=== PATIENT | female | born 1935 | race Caucasian/White ===

== ENCOUNTER 2025-04-06 08:27 | Inpatient (IN) | payer MEDICARE, OTHER, SELFPAY ==
--- OUTSIDE RECORDS SUMMARY | 2020-07-01 05:10 | XMS_ITS | Continuity of Care Document ---
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 [address], [id number], [place]. tel:[phone] [facility], Critical access hospital0 [address], [id number], tel:[phone] Gume Moderna #1 (chief complaint) No Information Visit Nursing. [address], [id number], . tel:[phone] Family History Family Member Type Diagnosis Age At Onset No Information Immunizations Vaccine Date Status Comments Moderna COVID-19 Vaccine, 100 mcg/0.5mL administered Source: New Immuniza tion Record Moderna COVID-19 Vaccine, 100 mcg/0.5mL administered Source: New Immuniza tion Record Payers Payer name Insurance type Covered green party ID Authoriza tion(s) WPS Part A [id number] [facility] CI [id number] WPS Part A [id number] [facility] CI [id number] WPS Part A [id number] [facility] [id number] [facility] CI [id number] Social History Type Description Quantity Date Captured Comments Sex Female Smoking Status No Information Vital Signs Date / Time: Height Weight BMI Pulse Rate Blood Pressure Temperature Respiratory Rate Body Surface Area Head Circumference Head Circ. Percentile Wt./Issa. Percentile BMI percentile Pulse Ox Inhaled Ox 11:28 AM 97.50 F Chief Complaint And Reason For Visit From encounter dated '07/01/2020 11:10'. Covid vaccine #2 (chief complaint) Reason For Referral Reason For Referral No Information History Of Present Illness Encounter Date Complaint History Of Prese nt Illness Covid vaccine #2 Moderna #1 Functional Status Date Functional Assessmen t No Information Instructions Date Instruction Additional Infor mation No Information Assessments Type Assessment Date No Information Patient Care Teams Name Effective Dates (start - stop) Status Members No Information
[2025-04-06] VITALS (28 sets, daily range): BP systolic 115–146; BP diastolic 75–95; PULSE 101–145; RESP 20–37; TEMP 37–38.1; O2SAT 92–96; BMI 24.7
--- NOTE | ~2025-04-06 | XR_ITS ---
EXAMINATION: XR chest 1V portable DATE: 04/11/2025 05:53 INDICATION: Shortness of breath TECHNIQUE: frontal view of the chest was obtained. COMPARISON: Chest radiograph dated 04/09/2025 FINDINGS: Pulmonary vascular congestion with persistent increased interstitial pattern in the bilateral mid and lower lung zones consistent with mild pulmonary edema. There are also small bilateral pleural effusions. No pneumothorax. Cardiomegaly. Dual lead pacemaker seen with leads projecting over the expected locations of the right atrium and right ventricle. IMPRESSION: 1. No significant change in cardiomegaly and findings consistent with congestive heart failure including pulmonary vascular congestion, mild pulmonary edema in the mid to lower lungs. Differential includes less likely pneumonia. 2. Small bilateral pleural effusions. Reviewed, dictated and finalized at location A. RT FIRER IMPRESSION: 1. No significant change in cardiomegaly and findings consistent with congestiv e heart failure including pulmonary vascular congestion, mild pulmonary edema i n the mid to lower lungs. Differential includes less likely pneumonia. 2. Small bilateral pleural effusions.
--- NOTE | ~2025-04-06 | XR_ITS ---
EXAMINATION: XR chest 1V portable COMPARISON: No comparisons available. HISTORY: CHF FINDINGS: Moderate pulmonary venous congestion. Minimal basilar infiltrates with trace effusions. No pneumothorax. Moderate cardiomegaly. Mediastinal and hilar contours are within normal limits. Bony thorax no acute abnormality. Miscellaneous: Left pacemaker. Impression: CHF. Findings appear progressed compared to the previous exam Reviewed, dictated and finalized at location P. A INTERN Impression: CHF. Findings appear progressed compared to the previous exam
--- NOTE | ~2025-04-06 | XR_ITS ---
Examination: XR chest 1V portable Clinical History: SOB Comparison: None Technique: Portable AP Findings: Left pacemaker. Cardiomegaly. Scattered interstitial markings with possible more discrete foci of superimposed airspace disease. Hyperinflation. No acute bony abnormality. IMPRESSION: 1. Interstitial pulmonary edema and/or multifocal airspace disease. Reviewed, dictated and finalized at location R. IELD ENGINEER OFFICER
--- NOTE | 2025-04-06 08:40 | ECG_ITS ---
Test Date: 2025-04-06 08:45:51 Measurements Intervals [place] Rate: 133 P: 0 [place]: 0 QRS: -41 QRSD: 74 T: 62 QT: 266 QTc: 397 Interpretive Statements ATRIAL FLUTTER/TACHYCARDIA WITH RAPID VENTRICULAR RESPONSE LEFT AXIS DEVIATION POSSIBLE RIGHT VENTRICULAR CONDUCTION DELAY DELAYED PRECORDIAL R/S TRANSITION BORDERLINE ST-T WAVE ABNORMALITY- LAT/HIGH LAT LEADS BASELINE ARTIFACT- I, II, III, AVR, AVL, AVF ABNORMAL ECG No previous ECG available for comparison Electronically Signed On 04-06-2025 09:32:42 [employer] by Torey Escobar D.O.
[2025-04-06] MEDS: METOPROLOL TARTRATE INJ 5 MG/5 ML VIAL IV PUSH (09:07)
[2025-04-06] MEDS: LACTATED RINGERS 1,000 ML 999 ML IV CONT (09:12)
[2025-04-06 09:32] LABS: Hematocrit 40.0 % (37.0-47.0); Hemoglobin 12.7 g/dL (12.0-15.0); Immature Granulocyte Percent A 0.3 % (0-0.5); Lymphocytes Absolute Auto 0.57 K/mm3 (0.9-3.2); Mean Corpuscular HGB Conc 31.8 g/dl (32-36); Mean Corpuscular Hemoglobin 27.6 pg (26-34); Mean Corpuscular Volume 87.0 fl (80-100); Nucleated Red Blood Cells Absolute Auto 0.000 K/mm3 (0.0-0.012); Nucleated Red Blood Cells Perc 0.0 % (0.0-0.2); Platelet Count Result 167 k/mm3 (150-375); Red Blood Count 4.60 M/mm3 (4.2-5.4); White Blood Count 9.2 K/mm3 (4.5-10.0)
--- NOTE | 2025-04-06 09:40 | ED.GENADULT ---
HPI - General Adult General Chief complaint: Shortness of Breath/Dyspnea Stated complaint: SOB Time Seen by Provider: 04/06/25 08:34 History of Present Illness HPI narrative: 89-year-old female with history of atrial fibrillation on metoprolol, history of CHF. Patient began having cough congestion yesterday along with onset of diarrhea. Patient states she has been taking her medications. Patient is recommended to use oxygen IA and that. And patient states she utilizes this when walking up stairs and when taking a shower but typically does not need to utilize the oxygen. Patient was found to be hypoxic by EMS today. Patient arrived on 4 L of nasal cannula Related Data Home Medications ?Medication ?Instructions ?Recorded ?Confirmed ?Last Taken ?Type Lactobacillus rhamnosus GG 10 1 cap PO DAILY 04/06/25 04/06/25 Unknown History billion cell capsule (Culturelle) acetaminophen 500 mg tablet 1,000 mg PO Q6H PRN pain 04/06/25 04/06/25 Unknown History (Tylenol Extra Strength) albuterol 90 mcg/actuation aerosol mcg inhalation .q4hr 04/06/25 Unknown History inhaler apixaban 2.5 mg tablet (Eliquis) 2.5 mg PO BID 04/06/25 04/06/25 04/05/25 History benzonatate 100 mg capsule 100 mg PO PRN 04/06/25 04/06/25 Unknown History bimatoprost 0.01 % eye drops 1 drp EACH EYE QHS 04/06/25 04/06/25 Unknown History (Adyigan) calcium 500 mg (as 1 tablet PO DAILY 04/06/25 04/06/25 Unknown History carbonate)-vitamin D3 10 mcg (400 unit) tablet (Calcium 500 + D) carboxymethylcellulose sodium 0.5 1 drp EACH EYE .q6h prn 04/06/25 04/06/25 Unknown History % eye drops (Refresh Tears) codeine 10 mg-guaifenesin 100 mg/5 10 ml PO Q4-6H PRN cough 04/06/25 04/06/25 Unknown History mL oral liquid cyclosporine 0.05 % eye drops in a 1 drp EACH EYE QHS 04/06/25 04/06/25 Unknown History dropperette denosumab 60 mg/mL subcutaneous 60 mg subcut [id number] 04/06/25 04/06/25 Unknown History syringe diclofenac sodium 1 % topical gel 4 g topical PRN 04/06/25 04/06/25 Unknown History (Arthritis Pain (diclofenac)) diphenhydramine HCl 25 mg capsule 25 mg PO Q6H PRN allergy symptoms 04/06/25 04/06/25 Unknown History (Allergy (diphenhydramine)) empagliflozin 10 mg tablet 10 mg PO DAILY 04/06/25 04/06/25 Unknown History (Jardiance) ferrous sulfate 325 mg (65 mg 325 mg PO .COMPLEX 04/06/25 04/06/25 Unknown History iron) tablet (FeroSul) fluticasone 250 mcg-salmeterol 50 1 inh inhalation Q12H 04/06/25 04/06/25 Unknown History mcg/dose blistr powdr for inhalation (Advair Diskus) ipratropium 0.5 mg-albuterol 3 mg 3 ml inhalation Q6H 04/06/25 04/06/25 Unknown History (2.5 mg base)/3 mL nebulization soln metoprolol tartrate 25 mg tablet 100 mg PO HS 04/06/25 04/06/25 Unknown History metoprolol tartrate 50 mg tablet 50 mg PO DAILY 04/06/25 04/06/25 Unknown History midodrine 10 mg tablet 10 mg PO DAILY 04/06/25 04/06/25 Unknown History pantoprazole 40 mg tablet,delayed 40 mg PO QAM 04/06/25 04/06/25 Unknown History release potassium chloride 10 mEq 20 meq PO DAILY 04/06/25 04/06/25 Unknown History tablet,extended release riociguat 1 mg tablet (Adempas) 1 mg PO TID 04/06/25 04/06/25 Unknown History selexipag 800 mcg tablet (Uptravi) 800 mcg PO BID 04/06/25 04/06/25 Unknown History sertraline 50 mg tablet 50 mg PO DAILY 04/06/25 04/06/25 Unknown History simvastatin 10 mg tablet 10 mg PO QPM 04/06/25 04/06/25 Unknown History tiotropium bromide 18 mcg capsule 1 cap inhalation QHS 04/06/25 04/06/25 Unknown History with inhalation device (Spiriva with HandiHaler) torsemide 20 mg tablet 20 mg PO DAILY 04/06/25 04/06/25 Unknown History vitamin Y42-pnhrcrywf factor 110 cap PO DAILY 04/06/25 Unknown History mg-0.5 mg capsule Allergies Allergy/AdvReac Type Severity Reaction Status Date / Time nitrofurantoin Allergy Mild Unknown Verified 04/06/25 12:13 Penicillins Allergy Mild Unknown Verified 04/06/25 12:13 Sulfa (Sulfonamide Allergy Mild Unknown Verified 04/06/25 12:13 Antibiotics) Review of Systems Review of Systems: All systems reviewed & are unremarkable except as noted in HPI and below PMFSH Past Medical History Medical History (Updated 04/06/25 @ 14:09 by Yasmin Castro APRN) HTN (hypertension) hx of, no longer on medications. on Midodrine as of Mar 2025 Anxiety Endometriosis Glaucoma Rheumatoid arthritis History of intestinal obstruction Hemorrhoids GERD (gastroesophageal reflux disease) History of diverticulitis History of pacemaker HLD (hyperlipidemia) DVT (deep venous thrombosis) (~2010) Chronic hypoxic respiratory failure, on home oxygen therapy PRN and HS COPD (chronic obstructive pulmonary disease) Congestive heart failure Atrial fibrillation Surgical History Surgical History History of tubal ligation History of hysterectomy History of section History of tonsillectomy History of cataract extraction History of knee replacement History of bladder surgery bladder sling, 1975 History of appendectomy History of lung surgery (~2010) History of automatic internal cardiac defibrillator (AICD) Family History Family History Mother Cancer Father Cancer Epilepsy Grandparent Cancer Social History Social History Smoking status: Never smoker Second hand tobacco smoke exposure: No Alcohol intake: never Substance use: never Lack of Transportation: No Lack of Food: Never True Current Housing: I Have Housing Concerned About Future Housing: No Difficulty Paying Gas/Electric Bills: No Difficulty Paying for Meds: No Currently Unemployed: No Education: High School Diploma/GED Difficulty w/ Childcare or Family Care: No Spiritual care concerns: No Exam Narrative: APPEARANCE: Well-appearing HEAD: normocephalic, atraumatic. EYES: PERRLA/EOMI, conjunctivae clear. NOSE: Normal no drainage EARS:TMS clear with good light reflex. THROAT: Pharynx clear, no exudate. NECK: Supple. No adenopathy, no masses. RESPIRATORY: Airway patent, respirations nonlabored. Clear to auscultation bilaterally, no rales, rhonchi, wheezing. CARDIOVASCULAR: Tachycardia ABDOMINAL: Soft, nontender, nondistended, normal bowel sounds MUSCULOSKELETAL: Moves all extremities. Strength/ROM intact, No edema, No calf tenderness. NEURO: Alert. Cranial nerves II through XII intact. Good gait. Good coordination SKIN: Warm, dry. Normal Color Course Vital Signs Vital signs: Vital Signs Temperature 98.6 F 04/06/25 09:02 Pulse Rate 141 H 04/06/25 09:02 Respiratory Rate 27 H 04/06/25 09:02 Blood Pressure 133/86 04/06/25 09:02 Pulse Oximetry 94 04/06/25 09:02 Oxygen Delivery Nasal Cannula 04/06/25 09:02 Oxygen Flow Rate 4 04/06/25 09:02 Temperature 98.7 F 04/06/25 11:19 Pulse Rate 102 H 04/06/25 14:00 Respiratory Rate 32 H 04/06/25 12:00 Blood Pressure 118/88 04/06/25 11:20 Pulse Oximetry 92 04/06/25 12:56 Oxygen Delivery BiPAP 04/06/25 12:56 Oxygen Flow Rate 4 04/06/25 12:56 MDM MDM Narrative Medical decision making narrative: 82-year-old female presents emergency department for evaluation for rapid heart rate. Patient does have history of AFib. Patient is in AFib with RVR. Patient also has evidence of a CHF exacerbation. Patient is currently afebrile with no leukocytosis hemoglobin of 12.7. Patient does have mild hypoxia on her ABG and patient was placed on BiPAP. Patient does have elevated proBNP of 8130. Patient was recently treated with a dose of 5 mg IV metoprolol and this had a minor effect on her heart rate. Patient was then treated with 10 mg of IV Cardizem along with starting an IV Cardizem infusion. This did help more significantly to control her heart rate. Patient is saturating well on her BiPAP with settings of 12/6. On re-evaluation patient states she does feel improved. Patient's blood pressure did improve as her heart rate improved. With concern for congestive heart failure patient is also being treated with a dose of IV Lasix. Case was discussed with the hospitalist patient was accepted to the IMU. Patient and family are updated the results of the workup and plan for admission. All questions concerns were addressed. Patient was well-appearing at time of admission. Differential Diagnosis Differential Diagnosis: Pneumonia, AFib with RVR, CHF Lab Data 04/06/25 09:23 04/06/25 09:23 Labs: Lab Results 04/06/25 04/06/25 Range/Units 09:23 09:52 WBC 9.2 (4.5-10.0) K/mm3 RBC 4.60 (4.2-5.4) M/mm3 Hgb 12.7 (12.0-15.0) g/dL Hct 40.0 (37.0-47.0) % MCV 87.0 (80-100) fl MCH 27.6 (26-34) pg MCHC 31.8 L (32-36) g/dl RDW 16.4 H (11.5-14.5) % Plt Count 167 (150-375) k/mm3 MPV 10.6 H (7.4-10.4) fl Immature Gran % (Auto) 0.3 (0-0.5) % Neut % (Auto) 87.4 H (45.5-73.1) % Lymph % (Auto) 6.2 L (18.3-44.2) % [place] % (Auto) 4.9 (2.6-8.5) % Eos % (Auto) 0.3 (0-4.4) % Baso % (Auto) 0.9 (0.2-1.2) % Lymph # (Auto) 0.57 L (0.9-3.2) K/mm3 [place] # (Auto) 0.5 (0.1-0.6) K/mm3 Eos # (Auto) 0.0 (0-0.3) K/mm3 Baso # (Auto) 0.1 (0.0-0.1) K/mm3 Abs Immat Gran (auto) 0.03 (0.00-0.031) K/mm3 Absolute Neuts (auto) 8.0 H (1.3-6.7) K/mm3 Absolute Nucleated RBC 0.000 (0.0-0.012) K/mm3 Nucleated RBC % 0.0 (0.0-0.2) % Methemoglobin 0.2 (0-1.5) %THb Sodium 138 (137-145) mmol/L Potassium 4.1 (3.4-5.0) mmol/L Chloride 109 H (98-107) mmol/L Carbon Dioxide 20 L (22-30) mmol/L Anion Gap 9 (4-12) mmol/L BUN 17 (7-17) mg/dL Creatinine 1.09 H (0.7-1.0) mg/dL Estim Creat Clear Calc 23 ml/min Estimated GFR 47 L (59 - ) Glucose 115 H (65-110) mg/dL Calcium 10.1 (8.4-10.2) mg/dL Total Bilirubin 0.8 (0.2-1.3) mg/dL AST 27 (14-36) U/L ALT 15 (6-35) U/L Alkaline Phosphatase 56 (38-126) U/L NT-Pro-B Natriuret Pep 8130 H (19.9-100) pg/mL Total Protein 7.1 (6.3-8.2) g/dL Albumin 4.1 (3.5-5.1) g/dL ABG Data ABG results: 04/06/25 09:52 Puncture Site Right radial ABG pH 7.399 ABG pCO2 30.3 L ABG pO2 61.3 L ABG PO2/FiO2 Ratio 1.70 ABG HCO3 18.3 L ABG O2 Saturation 91.9 L ABG O2 Content 16.8 ABG Base Excess -5.3 A-a Gradient 160.2 Oxyhemoglobin 89.8 L Carboxyhemoglobin 0.9 Reduced Hemoglobin 9.1 H Total Hemoglobin 13.3 O2 Delivery Device Nasal cannula O2 Liters/Min 4.0 FiO2 36 Imaging Data Radiologist's impression: ITS Impressions Chest X-Ray 04/06/25 10:27 IMPRESSION: 1. Interstitial pulmonary edema and/or multifocal airspace disease. Critical Care Time Critical Care Time Indication: AFib with RVR, CHF exacerbation, hypoxia Time Type: Intermittent Initial evaluation, discuss w/ involved parties, attempting to gather old records: 10 minutes Documenting medical record: 10 minutes Review of results (EKG's, labs, imaging): 5 minutes Serial repeat bedside evaluation: 15 minutes Discussing case with multiple memebers of the care team and consultants: 5 minutes Total Critical Care Time: 45 Discharge Plan Discharge Clinical Impression: Atrial fibrillation with rapid ventricular response Congestive heart failure Qualifiers: Heart failure type: unspecified Heart failure chronicity: acute on chronic Qualified Code(s): I50.9 - Heart failure, unspecified Patient Disposition: Still a Patient Condition: Serious
[2025-04-06] MEDS: dilTIAZem 100 MG/100 ML 100 MG/100 ML BAG IV CONT (09:42)
--- OUTSIDE RECORDS SUMMARY | 2025-04-06 09:49 | XMS_ITS | Clinical Summary ---
Author Organization [facility] Address [id number] [place] [address] Care Team Providers Care Product Marketing Executive Name Role Phone Héctor Roman MD Primary Care Provider Allergies Active Allergy Reactions Criticality Noted Date Comments Ciprofloxacin Panic attack,Prolonged QT interval 01/09/2023 Doxycycline Nausea And Vomiting Medium 11/16/2013 Flecainide Rash High 01/06/2022 Nitrofurantoin Macrocrystal Nausea And Vomiting 08/01/2021 Nitrofurantoin Macrocrystalline Nausea And Vomiting High Terrible nausea and vomiting Cefdinir Rash High 03/21/2018 Penicillin Rash High 09/26/2023 Penicillins Anaphylaxis,See Comments High 05/10/2010 Unknown Sulfamethoxazole Hives High Sulfamethoxazole-Trimethop rim Hives High 09/26/2023 Tramadol Nausea,Nausea And Vomiting 08/01/2021 Vancomycin Hives High 09/26/2023 Was changed to zyvox in ER 09/26/23 Medications lactobacillus rhamnosus, GG, (CULTURELLE) 10 billion cell capsuleIndicatio ns:probiotic supplement Take 1 capsule by mouth every morning. 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 Every six months 06/04/19 20 Active albuterol HFA (PROAIR HFA) 90 mcg/actuation inhalerIndicatio ns:Respiratory history (e.g. COPD, asthma) Inhale 2 puffs into the lungs every 4 (four) hours as needed for Wheezing. 1 Inhaler 11 02/13/20 20 Active acetaminophen (TYLENOL EXTRA STRENGTH) 500 mg tablet Take 2 tablets (1,000 mg total) by mouth every 6 (six) hours as needed for Mild Pain. 30 tablet 04/16/20 20 Active calcium carbonate-vitami n D3 600 mg-10 mcg (400 unit) Tab per tabletIndication s:hypocalcemia Take 1 tablet by mouth in the morning. Active albuterol-ipratr opium (DUO-NEB) 0.5 mg-3 mg(2.5 mg base)/3 mL nebulizer solutionIndicati ons:Respiratory history (e.g. COPD, asthma) Take 3 mLs by nebulization every 6 (six) hours as needed for Wheezing. 300 mL 1 04/12/20 21 Active pantoprazole (PROTONIX) 40 mg tabletIndication s:Dyspepsia Take 1 tablet (40 mg total) by mouth every morning before breakfast. 90 tablet 3 11/08/19 23 Active oxymetazoline (AFRIN) 0.05 % nasal sprayIndications :epistaxis 2 sprays by Each Nare route as needed for Congestion (for nose bleeds squirt twice into both nostrils hold pressure for 10 mins repeat again if needed.). 15 mL 11/23/19 23 Active selexipag (UPTRAVI) 800 mcg TabIndications:P ulmonary Arterial Hypertension Take 1 tablet (800 mcg total) by mouth 2 (two) times a day. 60 tablet 11 01/13/20 23 Active riociguat (ADEMPAS) 1 mg TabIndications:P ulmonary Arterial Hypertension Take 1 tablet (1 mg total) by mouth in the morning and 1 tablet (1 mg total) in the evening and 1 tablet (1 mg total) before bedtime. Active REFRESH TEARS 0.5 % DropIndications: Dry Eye Administer 1 drop into both eyes every 6 (six) hours as needed (dry eyes). 02/15/20 23 Active RESTASIS 0.05 % ophthalmic emulsionIndicati ons:Keratoconjun ctivitis Sicca Administer 1 drop into both eyes bedtime. 02/16/20 23 Active ferrous sulfate 325 (65 FE) mg tabletIndication s:iron deficiency anemia Take 1 tablet (325 mg total) by mouth every other day. Can take Monday, Monday, and Monday; take with a vitamin C supplement Reason: anemia from inadequate iron 30 tablet 5 05/29/19 24 Active cyanocobalamin (VITAMIN B-12) 1000 mcg tabletIndication s:Prevention of Vitamin B12 Deficiency Take 1 tablet (1,000 mcg total) by mouth 1 (one) time a day. Reason: prevention of vitamin B12 deficiency 90 tablet 3 05/29/19 24 Active fluticasone propion-salmeter oL (ADVAIR) 250-50 mcg/dose diskus inhalerIndicatio ns:Bronchospasm Prevention with COPD Inhale 1 puff into the lungs 2 (two) times a day. Reason: bronchospasm prevention with COPD 60 each 5 06/02/19 24 Active diphenhydrAMINE (BENADRYL) 25 mg capsuleIndicatio ns:Allergic Rhinitis Take 1 capsule (25 mg total) by mouth every 6 (six) hours as needed for Allergies. Active simvastatin (ZOCOR) 10 mg tabletIndication s:hyperlipidemia Take 1 tablet (10 mg total) by mouth at bedtime. Reason: excessive fat in the blood 90 tablet 3 04/03/20 24 Active guaiFENesin-code ine (GUIATUSS AC) 10-100 mg/5 mL syrupIndications :cough Take 5-10 mLs by mouth every 4 to 6 (four to six) hours as needed for Cough. 237 mL 3 05/22/19 25 Active NASAL CANNULAIndicatio ns:Durable Medical Equipment 1 each by [facility].(Non-Drug; Combo Route) route. COPD [J44.9] Duration: 99 yrs (lifetime) 05/22/19 25 Active benzonatate (TESSALON) 100 mg capsuleIndicatio ns:cough Take 1 capsule (100 mg total) by mouth 3 (three) times a day as needed for Cough. Reason: cough 30 capsule 05/29/19 25 Active SPIRIVA WITH HANDIHALER 18 mcg inhalation capsuleIndicatio ns:Bronchospasm Prevention with COPD Place 1 capsule (18 mcg total) into inhaler and inhale at bedtime. Reason: bronchospasm prevention with COPD 90 capsule 3 06/07/19 25 Active empagliflozin (JARDIANCE) 10 mg tablet Take 1 tablet (10 mg total) by mouth 1 (one) time a day. 90 tablet 3 07/17/19 25 Active diclofenac sodium (VOLTAREN) 1 % gelIndications:O steoarthritis Apply 4 g topically 2 (two) times a day as needed for Mild Pain. Apply to Right shoulder Active bimatoprost, PF, 0.01 % DropIndications: open angle glaucoma Administer 1 drop into affected eye(s) bedtime. Active sertraline (ZOLOFT) 50 mg tabletIndication s:panic disorder Take 1 tablet (50 mg total) by mouth in the morning. 90 tablet 3 01/30/20 25 Active apixaban (ELIQUIS) 2.5 mg Tab tabletIndication s:atrial fibrillation Take 1 tablet (2.5 mg total) by mouth in the morning and 1 tablet (2.5 mg total) before bedtime. 180 tablet 3 01/30/20 25 Active torsemide 20 mg tabletIndication s:Peripheral Edema due to Chronic Heart Failure Take 1 tablet (20 mg total) by mouth in the morning. . Reason: accumulation of fluid resulting from chronic heart failure. . 90 tablet 3 02/18/20 25 Active metoprolol tartrate (LOPRESSOR) 50 mg tabletIndication s:Ventricular Rate Control in Atrial Fibrillation Take 1 tablet (50 mg total) by mouth 1 (one) time a day AND 2 tablets (100 mg total) bedtime. . Reason: ventricular rate control in atrial fibrillation. . 180 tablet 3 02/25/20 25 Active midodrine (PROAMATINE) 10 mg tabletIndication s:Symptomatic Orthostatic Hypotension Take 1 tablet (10 mg total) by mouth in the morning. OK to take up to three times a day as needed for symptomatic orthostatic hypotension (SBP <120). 90 tablet 3 03/17/20 25 Active potassium chloride (KLOR-CON) 10 mEq CR tabletIndication s:hypokalemia prevention Take 2 tablets (20 mEq total) by mouth every evening. 180 tablet 04/02/20 25 Active potassium chloride (KLOR-CON) 10 mEq CR tabletIndication s:hypokalemia prevention Take 2 tablets (20 mEq total) by mouth every evening. Reason: prevention of low potassium in the blood 180 tablet 12/29/19 25 025 Discontin ued(Reord er) midodrine (PROAMATINE) 10 mg tabletIndication s:Symptomatic Orthostatic Hypotension Take 1 tablet (10 mg total) by mouth in the morning. OK to take up to three times a day as needed for symptomatic orthostatic hypotension (SBP <120). 025 Discontin ued(Reord er) Active Problems Patient Care Coordination No te Formatting of this note migh t be different from the original. 12/01/23 Pt has a LBBP lead (MDT 5919) Jairo Isidro RN 3:44 PM, 12/01/2023 Problem Noted Date Diagnosed Date Electrolyte abnormality 02/07/2024 Acute blood loss anemia 02/02/2024 Assessment & Plan (02/06/2024 2:38 PM CDT): Noted to have acute blood loss anemia after right groin venous sheath were removed. Patient had hemoglobin drop from 13.[address] AMP noted large right anterior subcutaneous and intramuscular hematoma with no active extravasation. Patient did have mild pain. Patient received 2 units of packed red blood cells. Patient also does have ABRAHAM at baseline. Patient's hemoglobin stable. Will continue to monitor for signs or symptoms of bleeding and daily CBC. Continue home ferrous sulfate See plan for thigh hematoma Assessment & Plan (02/05/2024 2:52 PM CDT): Noted to have acute blood loss anemia after right groin venous sheath were removed. Patient had hemoglobin drop from 13.[address] AMP noted large right anterior subcutaneous and intramuscular hematoma with no active extravasation. Patient did have mild pain. Patient received 2 units of packed red blood cells. Patient also does have ABRAHAM at baseline. Patient's hemoglobin stable. Will continue to monitor for signs or symptoms of bleeding and daily CBC. Continue home ferrous sulfate See plan for thigh hematoma Assessment & Plan (02/04/2024 1:24 PM CDT): Noted to have acute blood loss anemia after right groin venous sheath were removed. Patient had hemoglobin drop from 13.[address] AMP noted large right anterior subcutaneous and intramuscular hematoma with no active extravasation. Patient did have mild pain. Patient received 2 units of packed red blood cells. Patient also does have ABRAHAM at baseline. Patient's hemoglobin stable. Will continue to monitor for signs or symptoms of bleeding and daily CBC. Continue home ferrous sulfate See plan for thigh hematoma Assessment & Plan (02/03/2024 12:06 PM CDT): Noted to have acute blood loss anemia after right groin venous sheath were removed. Patient had hemoglobin drop from 13.[address] AMP noted large right anterior subcutaneous and intramuscular hematoma with no active extravasation. Patient did have mild pain. Patient received 2 units of packed red blood cells. Patient also does have ABRAHAM at baseline. Patient's hemoglobin stable. Will continue to monitor for signs or symptoms of bleeding and daily CBC. Continue home ferrous sulfate See plan for thigh hematoma Assessment & Plan (02/02/2024 10:58 AM CDT): Noted to have acute blood loss anemia after right groin venous sheath were removed. Patient had hemoglobin drop from 13.[address] AMP noted large right anterior subcutaneous and intramuscular hematoma with no active extravasation. Patient did have mild pain. Patient received 2 units of packed red blood cells. Patient also does have ABRAHAM at baseline Plan Patient's hemoglobin stabilized at 9.2. Will continue to monitor for signs or symptoms of bleeding. Will check CBC tomorrow. Continue home ferrous sulfate Stage 3b chronic kidney disease 02/02/2024 Assessment & Plan (02/06/2024 2:38 PM CDT): Chronic. Cr baseline appears to be near 1.2 - 1.5. CÉSAR to 1.81 now back to baseline. Cr baseline appears to be trending up, noting possible progression of CKD. Patient euvolemic via POCUS exam. Continue to monitor on daily labs Assessment & Plan (02/05/2024 2:52 PM CDT): Chronic. Cr baseline appears to be near 1.2 - 1.5. CÉSAR to 1.81 now back to baseline. Cr baseline appears to be trending up, noting possible progression of CKD. Patient euvolemic via POCUS exam. Continue to monitor on daily labs Assessment & Plan (02/04/2024 1:24 PM CDT): Chronic. Cr baseline appears to be near 1.2 - 1.5. CÉSAR to 1.81 now back to baseline. Cr baseline appears to be trending up, noting possible progression of CKD. Patient euvolemic via POCUS exam. Continue to monitor on daily labs Assessment & Plan (02/03/2024 12:06 PM CDT): Chronic. Cr baseline appears to be near 1.2 - 1.5. CÉSAR to 1.81 now back to baseline. Cr baseline appears to be trending up, noting possible progression of CKD. Patient euvolemic via POCUS exam. Continue to monitor on daily labs Assessment & Plan (02/02/2024 10:58 AM CDT): Chronic. Cr baseline appears to be near 1.2 - 1.5. CÉSAR to 1.81 improved toady. Cr baseline appears to be trending up, noting possible progression of CKD. Patient euvolemic today via POCUS exam. Plan Continue to monitor on daily labs If CÉSAR persists, will consider resuming Torsemide 20 mg BID. Hematoma of right thigh 02/02/2024 Assessment & Plan (02/06/2024 2:38 PM CDT): Patient with right thigh hematoma after sheath removal post ablation. There was evidence of fistula creation of the right proximal superficial femoral artery, distal common femoral vein, and deep femoral artery. No evidence of pseudoaneurysm. Vascular surgery consulted and evaluated patient. Patient does not need surgery at this time. Repeat pseudoaneurysm study 02/04 without e/o pseudoaneurysm Continuing eliquis for Afib With respect to hematoma, patient's pain is under good control Pain regimen: Tylenol as needed, oxycodone as needed Assessment & Plan (02/05/2024 2:52 PM CDT): Patient with right thigh hematoma after sheath removal post ablation. There was evidence of fistula creation of the right proximal superficial femoral artery, distal common femoral vein, and deep femoral artery. No evidence of pseudoaneurysm. Vascular surgery consulted and evaluated patient. Patient does not need surgery at this time. Repeat pseudoaneurysm study 02/04 Continuing eliquis for Afib With respect to hematoma, patient's pain is under good control Pain regimen: Tylenol as needed, oxycodone as needed Assessment & Plan (02/04/2024 1:24 PM CDT): Patient with right thigh hematoma after sheath removal post ablation. There was evidence of fistula creation of the right proximal superficial femoral artery, distal common femoral vein, and deep femoral artery. No evidence of pseudoaneurysm. Vascular surgery consulted and evaluated patient. Patient does not need surgery at this time. Vascular signed off and plans for outpatient follow-up Continuing eliquis for Afib With respect to hematoma, patient's pain is under good control Pain regimen: Tylenol as needed, oxycodone as needed Assessment & Plan (02/03/2024 12:06 PM CDT): Patient with right thigh hematoma after sheath removal post ablation. There was evidence of fistula creation of the right proximal superficial femoral artery, distal common femoral vein, and deep femoral artery. No evidence of pseudoaneurysm. Vascular surgery consulted and evaluated patient. Patient does not need surgery at this time. Vascular signed off and plans for outpatient follow-up Continuing eliquis for Afib With respect to hematoma, patient's pain is under good control Pain regimen: Tylenol as needed, oxycodone as needed Assessment & Plan (02/02/2024 10:58 AM CDT): Patient with right thigh hematoma secondary to acute blood loss anemia. There was evidence of fistula creation of the right proximal superficial femoral artery, distal vomiting femoral vein, and deep femoral artery. Plan Vascular surgery consulted and evaluated patient. Patient does not need surgery at this time. Patient restarted on Eliquis yesterday despite notes recommending to hold anticoagulation at this time. Will clarify with cardiology and vascular surgery if they want this continued. With respect to hematoma, patient's pain is under good control. Pain regimen: Tylenol as needed, oxycodone as needed Orthostatic hypotension 02/02/2024 Assessment & Plan (06/01/2024 8:39 AM GARMENT EXAMINER): Chronic, continue midodrine 10mg daily. Assessment & Plan (06/01/2024 4:31 AM GARMENT EXAMINER): Chronic, continue midodrine 10mg daily. Assessment & Plan (02/06/2024 2:38 PM CDT): Patient on Midodrine 10 mg qAM and up to TID prn for symptomatic orthostatic hypotension. Continue Midodrine 10 mg qAM and 10 mg q8h PRN for SBP < 100. Assessment & Plan (02/05/2024 2:52 PM CDT): Patient on Midodrine 10 mg qAM and up to TID prn for symptomatic orthostatic hypotension. Continue Midodrine 10 mg qAM and 10 mg q8h PRN for SBP < 100. Assessment & Plan (02/04/2024 1:24 PM CDT): Patient on Midodrine 10 mg qAM and up to TID prn for symptomatic orthostatic hypotension. Continue Midodrine 10 mg qAM and 10 mg q8h PRN for SBP < 100. Assessment & Plan (02/03/2024 12:06 PM CDT): Patient on Midodrine 10 mg qAM and up to TID prn for symptomatic orthostatic hypotension. Continue Midodrine 10 mg qAM and 10 mg q8h PRN for SBP < 100. Assessment & Plan (02/02/2024 10:58 AM CDT): Patient on Midodrine 10 mg qAM and up to TID prn for symptomatic orthostatic hypotension. Plan Continue Midodrine 10 mg qAM and 10 mg q8h PRN for SBP < 100. Chronic heart failure with preserved ejection fr action 12/18/2023 Assessment & Plan (08/28/2024 11:45 AM CDT): Ejection fraction 55-60% in 2023. Euvolemic on exam. Baseline Home dry weight 127, in office 130-131. Patient is at this baseline. No signs of heart failure exacerbation. Will repeat kidney function and magnesium level. Had resumed Jardiance and torsemide in June. Has appropriate follow-up with Dr. Marshall and Dr. Reardon with cardiology Orders: Comprehensive metabolic panel; Future Magnesium; Future Assessment & Plan (06/01/2024 8:39 AM GARMENT EXAMINER): Stable and Chronic. Ejection fraction 55-60% in 2023. BNP 139 pg/mL 05/31/2024. Weight on admission 130 lb 9.6 oz (59.2 kg); most recent 130 lb 9.6 oz (59.2 kg). Net (measured) intake/output = 0 mL since admission and 0 mL since yesterday. Monitor intake, output, daily weight & continuous telemetry Held meds: torsemide Diuresis: not currently indicated (due to volume depletion) Assessment & Plan (06/01/2024 4:31 AM GARMENT EXAMINER): Stable and Chronic. Ejection fraction 55-60% in 2023. BNP 139 pg/mL 05/31/2024. Weight on admission 130 lb 9.6 oz (59.2 kg); most recent 130 lb 9.6 oz (59.2 kg). Net (measured) intake/output = 0 mL since admission and 0 mL since yesterday. Monitor intake, output, daily weight & continuous telemetry Held meds: torsemide Diuresis: not currently indicated Neuropathy 06/17/2023 Neutropenia 06/17/2023 B12 deficiency 06/17/2023 Panic attack 06/17/2023 Spinal stenosis of lumbar re gion with neurogenic claudication 05/24/2023 Lumbar spondylosis 05/24/2023 CÉSAR on CKD stage 3b 03/23/2023 Assessment & Plan (06/01/2024 8:39 AM GARMENT EXAMINER): Improving and Acute. Suspected etiology prerenal due to hypovolemia. Creatinine 1.70 mg/dL (baseline 0.9). S/p 1000mL NS bolus; gave another 500ml bolus on 06/01. Recheck afternoon BMPs Monitor intake & output Check metabolic panel daily Check urine studies Held meds: torsemide Avoid potentially nephrotoxic agents Pharmacy assistance for medication dosing Optimize volume status and perfusion pressure (MAP>75 & CVP<12) Assessment & Plan (06/01/2024 4:31 AM GARMENT EXAMINER): Improving and Acute. Suspected etiology prerenal due to hypovolemia. Creatinine 1.62 mg/dL (baseline 0.9). 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 CXR with likely pulmonary edema, CHFP elevated compared to recent baseline. Procal negative. Home diuresis had been on hold. Patient on 1 to 2 L intermittently at home, using oxygen as needed at baseline. Resume home torsemide BID Will continue to monitor oxygen requirements May need three-step test prior to discharge [facility] protocol Assessment & Plan (02/05/2024 2:52 PM CDT): Patient noted to be on 1 to 2 L intermittently at home, using oxygen as needed. Patient on 2 L of oxygen continuous while inpatient. Will continue to monitor oxygen requirements May need three-step test prior to discharge [facility] protocol Assessment & Plan (02/04/2024 1:24 PM CDT): Patient noted to be on 1 to 2 L intermittently at home, using oxygen as needed. Patient on 2 L of oxygen continuous while inpatient. Will continue to monitor oxygen requirements May need three-step test prior to discharge [facility] protocol Assessment & Plan (02/03/2024 12:06 PM CDT): Patient noted to be on 1 to 2 L intermittently at home, using oxygen as needed. Patient on 2 L of oxygen continuous while inpatient. Will continue to monitor oxygen requirements May need three-step test prior to discharge [facility] protocol Assessment & Plan (02/02/2024 10:58 AM CDT): Patient noted to be on 1 to 2 L intermittently at home, using oxygen as needed. Patient on 2 L of oxygen continuous while inpatient. Plan Will continue to monitor oxygen requirements May need three-step test prior to discharge [facility] protocol Pulmonary edema 03/16/2019 History of small bowel obstruction 11/13/2018 DNR (do not resuscitate) 08/01/2018 Chronic respiratory failure with hypoxia, on home oxygen therapy 08/01/2018 Acute on chronic diastolic congestive heart fail ure 04/10/2018 Umbilical hernia without obstruction and without gangrene 03/12/2018 Hyperlipidemia 12/18/2017 Assessment & Plan (06/01/2024 8:39 AM GARMENT EXAMINER): Chronic. Continue Assessment & Plan (06/01/2024 4:31 AM GARMENT EXAMINER): Chronic. Continue Assessment & Plan (02/06/2024 2:38 PM CDT): Chronic. Continue home atorvastatin. Assessment & Plan (02/05/2024 2:52 PM CDT): Chronic. Continue home atorvastatin. Assessment & Plan (02/04/2024 1:24 PM CDT): Chronic. Continue home atorvastatin. Assessment & Plan (02/03/2024 12:06 PM CDT): Chronic. Continue home atorvastatin. Assessment & Plan (02/02/2024 10:58 AM CDT): Chronic. Continue home atorvastatin. Mild mitral regurgitation 12/18/2017 CAD (coronary artery disease) 03/14/2017 Atrial fibrillation s/p atri al fibrillation ablation on 01/31/24 03/13/2017 Assessment & Plan (08/28/2024 11:45 AM CDT): Persistent A-fib with multiple ablations, most recently in 2023. Previously on flecainide but did not tolerate due to allergies. Has been on amiodarone in the past but was refractory to this and has potential pulmonary side effects. Currently on metoprolol 25 mg twice daily. [id number] of 6, is on low-dose Eliquis due to age and renal function Per Dr. Chris's note on 06/2024, the next labs for A-fib with RVR (patient currently in with heart rate 100-120) would be to increase the metoprolol. Will increase metoprolol to 50 mg twice daily to target heart rate of 80 bpm. Patient counseled on risk of side effects. Will also notify Dr. Reardon and Dr. Chris Assessment & Plan (06/01/2024 8:39 AM GARMENT EXAMINER): Stable and Chronic. On Eliquis. Heart rate 89-108 bpm since yesterday, most recent 91. Monitor heart rate with routine vital signs & continuous telemetry Anticoagulation: apixaban (Eliquis) Rate/rhythm control: amiodarone Assessment & Plan (06/01/2024 4:31 AM GARMENT EXAMINER): Stable and Chronic. On Eliquis. Heart rate 89-108 bpm since yesterday, most recent 99. Monitor heart rate with routine vital signs & continuous telemetry Anticoagulation: apixaban (Eliquis) Rate/rhythm control: amiodarone Assessment & Plan (02/06/2024 2:38 PM CDT): Underwent successful DCCV to sinus rhythm 02/04. Non-valvular with [id number]: 6 = 9.7% unadjusted ischemic stroke rate (per year) and HAS-BLED: 4 = 8.70 bleeds per 100 patient years. Heart rate 80-118 bpm since yesterday, most recent 92. Monitor heart rate with routine vital signs & continuous telemetry Telemetry Anticoagulation: apixaban (Eliquis) Rate/rhythm control: metoprolol and amiodarone (started 02/02 per EP recs) Assessment & Plan (02/05/2024 2:52 PM CDT): Underwent successful DCCV to sinus rhythm 02/04. Non-valvular with [id number]: 6 = 9.7% unadjusted ischemic stroke rate (per year) and HAS-BLED: 4 = 8.70 bleeds per 100 patient years. Heart rate 80-152 bpm since yesterday, most recent 80. Monitor heart rate with routine vital signs Telemetry Anticoagulation: apixaban (Eliquis) Rate/rhythm control: metoprolol and amiodarone (started 02/02 per EP recs) Assessment & Plan (02/04/2024 1:24 PM CDT): Back into atypical flutter evening 02/01. Still has poor rate control 02/03. Non-valvular with [id number]: 6 = 9.7% unadjusted ischemic stroke rate (per year) and HAS-BLED: 4 = 8.70 bleeds per 100 patient years. Heart rate 100-152 bpm since yesterday, most recent 126. Monitor heart rate with routine vital signs & continuous telemetry Anticoagulation: apixaban (Eliquis) Rate/rhythm control: metoprolol and amiodarone (started 02/02 per EP recs) Cardiology planning for DCCV 02/04 Assessment & Plan (02/03/2024 12:06 PM CDT): Back into atypical flutter evening 02/01. Non-valvular with [id number]: 6 = 9.7% unadjusted ischemic stroke rate (per year) and HAS-BLED: 4 = 8.70 bleeds per 100 patient years. Heart rate 90-135 bpm since yesterday, most recent 118. Monitor heart rate with routine vital signs Anticoagulation: apixaban (Eliquis) Rate/rhythm control: metoprolol and amiodarone (started 02/02 per EP recs) Assessment & Plan (02/02/2024 10:58 AM CDT): Resolved. Non-valvular with [id number]: 6 = 9.7% unadjusted ischemic stroke rate (per year) and HAS-BLED: 4 = 8.70 bleeds per 100 patient years. Heart rate 80- 107 bpm since yesterday, most recent 98. Monitor heart rate with routine vital signs & continuous telemetry Anticoagulation: apixaban (Eliquis) - Will clarify today with cardiology if patient is to remain on Eliquis that was ordered on 02/01/2024. Rate/rhythm control: not indicated s/p Afib ablation Pulmonary hypertension 01/18/2017 Assessment & Plan (06/01/2024 8:39 AM GARMENT EXAMINER): Chronic. She is on Adempas and Uptravi. She declines these medications this evening as they are very cost prohibitive for her in the hospital. Will hold the medications for now and touch base with pharmacy. Pharmacy called twice on 06/01. Will continue to call. Assessment & Plan (06/01/2024 4:31 AM GARMENT EXAMINER): Chronic. She is on Adempas and Uptravi. She declines these medications this evening as they are very cost prohibitive for her in the hospital. Will hold the medications for now and revisit this topic in the morning. Assessment & Plan (02/06/2024 2:38 PM CDT): Mixed etiology. Follows with [facility] as an outpatient. Continue home Adempas, Selexipag, Jardiance. Patient does have PRN oxygen at home. Toresemide 20 mg BID resumed starting 02/05 Assessment & Plan (02/05/2024 2:52 PM CDT): Mixed etiology. Follows with [facility] as an outpatient. Continue home Adempas, Selexipag, Jardiance. Patient does have PRN oxygen at home. Toresemide 20 mg BID held on admission. Assessment & Plan (02/04/2024 1:24 PM CDT): Mixed etiology. Follows with [facility] as an outpatient. Continue home Adempas, Selexipag, Jardiance. Patient does have PRN oxygen at home. Toresemide 20 mg BID held on admission. Assessment & Plan (02/03/2024 12:06 PM CDT): Mixed etiology. Follows with [facility] as an outpatient. Continue home Adempas, Selexipag, Jardiance. Patient does have PRN oxygen at home. Toresemide 20 mg BID held on admission. Assessment & Plan (02/02/2024 10:58 AM CDT): Mixed etiology. Follows with [facility] as an outpatient. Plan Continue home Girma Sandy Jardiance. Patient does have PRN oxygen at home. Toresemide 20 mg BID held on admission. Hypoxia 06/09/2016 Lung nodule 06/09/2016 Osteoporosis 03/16/2016 Breast CA 01/12/2016 S/P right breast biopsy 10/16/2015 Stroke 08/13/2015 Chronic cough 08/04/2015 Chronic anticoagulation 07/08/2014 SBO (small bowel obstruction) 07/07/2014 Chronic bronchitis 07/04/2014 OA (osteoarthritis) of knee 01/23/2014 S/P total knee arthroplasty 01/23/2014 GERD (gastroesophageal reflux disease) 4 Assessment & Plan (02/06/2024 2:38 PM CDT): Chronic. Continue home PPI. Assessment & Plan (02/05/2024 2:52 PM CDT): Chronic. Continue home PPI. Assessment & Plan (02/04/2024 1:24 PM CDT): Chronic. Continue home PPI. Assessment & Plan (02/03/2024 12:06 PM CDT): Chronic. Continue home PPI. Assessment & Plan (02/02/2024 10:58 AM CDT): Chronic. Continue home PPI. Esophageal dysmotilities 11/22/2013 COPD (chronic obstructive pulmonary disease) Assessment & Plan (06/01/2024 8:39 AM GARMENT EXAMINER): Improving and Chronic. S/p recent exacerbation. Finishing prednisone and azithromycin on 06/02. SpO2 92 % . Monitor on pulse oximetry Provide supplemental oxygen as needed to maintain SpO2 88-92% Inhaled medication and bronchial hygiene per Respiratory Therapy Systemic corticosteroid: prednisone for acute exacerbation through June 02 Antibiotic: azithromycin through June 02 Assessment & Plan (06/01/2024 4:31 AM GARMENT EXAMINER): Improving and Chronic. S/p recent exacerbation. Finishing prednisone and azithromycin on 06/02. SpO2 89 % None (Room air). Monitor on pulse oximetry Provide supplemental oxygen as needed to maintain SpO2 88-92% Inhaled medication and bronchial hygiene per Respiratory Therapy Systemic corticosteroid: prednisone for acute exacerbation through June 02 Antibiotic: azithromycin through June 02 Assessment & Plan (02/06/2024 2:38 PM CDT): Worsening. Acute exacerbation on ddx. SpO2 96 % 3.5 L/min Nasal cannula. Monitor on pulse oximetry Provide supplemental oxygen as needed to maintain SpO2 88-92% Inhaled medication and bronchial hygiene per Respiratory Therapy Systemic corticosteroid: not currently indicated Antibiotic: not currently indicated Assessment & Plan (02/05/2024 2:52 PM CDT): Stable. No acute exacerbation. SpO2 90 % 2 L/min None (Room air). Monitor on pulse oximetry Provide supplemental oxygen as needed to maintain SpO2 88-92% Inhaled medication and bronchial hygiene per Respiratory Therapy Systemic corticosteroid: not currently indicated Antibiotic: not currently indicated Assessment & Plan (02/04/2024 1:24 PM CDT): Stable. No acute exacerbation. SpO2 93 % 1 L/min Nasal cannula. Monitor on pulse oximetry Provide supplemental oxygen as needed to maintain SpO2 88-92% Inhaled medication and bronchial hygiene per Respiratory Therapy Systemic corticosteroid: not currently indicated Antibiotic: not currently indicated Assessment & Plan (02/03/2024 12:06 PM CDT): Stable. No acute exacerbation. SpO2 94 % None (Room air). Monitor on pulse oximetry Provide supplemental oxygen as needed to maintain SpO2 88-92% Inhaled medication and bronchial hygiene per Respiratory Therapy Systemic corticosteroid: not currently indicated Antibiotic: not currently indicated Assessment & Plan (02/02/2024 10:58 AM CDT): Stable. No acute exacerbation. SpO2 93 % 2 L/min Nasal cannula. Monitor on pulse oximetry Provide supplemental oxygen as needed to maintain SpO2 88-92% Inhaled medication and bronchial hygiene per Respiratory Therapy Systemic corticosteroid: not currently indicated Antibiotic: not currently indicated Chronic back pain 11/21/2013 Anemia 06/10/2013 Lumbar radiculopathy 05/15/2013 Status post discectomy 01/31/2013 Lumbago 01/31/2013 Assessment & Plan (10/17/2013 10:12 AM CDT): Relevant Hx: Course: Daily Update: Today's Plan: Displacement of lumbar inter vertebral disc without myelopathy 12/25/2012 Gastroesophageal reflux disease 07/18/2010 Overview (07/18/2011): Assessment & Plan (06/01/2024 8:39 AM GARMENT EXAMINER): Chronic, stable. Continue pantoprazole. Assessment & Plan (06/01/2024 4:31 AM GARMENT EXAMINER): Chronic, stable. Continue pantoprazole. Resolved Problems Problem Noted Date Diagnosed Date Resolved Date HTN (hypertension) 02/02/2024 4 Weakness 10/16/2023 10/20/2023 Hypercalcemia 10/16/2023 10/20/2023 Medication induced coagulopa thy; Eliquis for atrial fib 03/23/2023 10/05/2023 Moderate protein-calorie malnutrition 11/13/2018 12/14/2020 Persistent atrial fibrillation 07/11/2018 02/02/2024 S/P ablation of atrial fibrillation 07/11/2018 02/02/2024 COPD with acute exacerbation 06/09/2018 07/02/2019 Influenza A 04/24/2017 01/25/2018 Atrial fibrillation, persistent 08/13/2015 07/02/2019 Cough 07/30/2015 04/05/2016 Influenza A (H1N1) 07/30/2015 6 Dehydration 02/21/2014 02/23/2014 DAHL (dyspnea on exertion) 11/21/2013 CHF (congestive heart failure) 11/21/2013 02/21/2014 On home oxygen therapy 11/21/201302/21 Cough 11/21/2013 02/21/2014 Leukocytosis 11/21/2013 02/21/2014 Anemia 11/21/2013 02/21/2014 Hyponatremia 11/17/2013 02/21/2014 Somatic Symptom Disorder wit h Predominant Pain 08/28/2013 02/21/2014 HSV-1 (herpes simplex virus 1) infection 06/14/2013 02/21/2014 Bradycardia 06/05/2013 06/08/2013 Acute renal insufficiency 06/05/2013 Dyspnea 05/24/2013 02/21/2014 Visit for screening mammogram 02/12/2013 02/21/2014 Pain in limb 01/31/2013 11/25/2013 General medical exam 01/28/2013 014 Pneumonia 11/17/2012 01/18/2017 Back pain 11/16/2012 11/25/2013 Low back pain 11/13/2012 11/25/2013 Shortness of breath 08/10/2012 02/24/20 14 Pneumonitis 08/10/2012 11/16/2013 CHF (congestive heart failure) 08/10/2012 03/14/2017 Allergic rhinitis 09/10/2010 02/21/2014 Overview (07/18/2011): Respiratory failure 08/26/2010 02/22/20 14 Overview (07/18/2011): Cardiac arrest 07/19/2010 02/21/2014 Overview (07/18/2011): COPD (chronic obstructive pulmonary disease) 1 02/21/2014 Overview (07/18/2011): Atrial flutter 04/12/2010 02/21/2014 Overview (07/18/2011): Anticoagulated 04/12/2010 07/02/2019 Overview (07/18/2011): Dysphonia 01/25/2008 02/21/2014 Overview (07/18/2011): Encounters Date Type Department Care Team Description 04/01/2025 Refill [facility] [place] [address] [facility] [address] [place] [address] Héctor Roman MD Medication Refill 03/31/2025 Telephone [facility] [id number] [place] [phone] Deisy Muñoz Medication Authorization 03/17/2025 9:45 AM GARMENT EXAMINER Office Visit [address] 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]; S/P placement of cardiac pacemaker 03/05/2025 12:04 PM GARMENT EXAMINER - 03/05/2025 11:59 PM GARMENT EXAMINER Hospital Encounter Lab Services at [facility] [address] [facility], 1st [place] [phone] Age-related osteoporosis without current pathological fracture; Pulmonary hypertension (HCC); Chronic right-sided heart failure (HCC); Chronic heart failure with preserved ejection fraction (HCC); Atrial fibrillation, unspecified type (HCC) Discharge Disposition: Home with No Service 03/05/2025 11:00 AM GARMENT EXAMINER Office Visit Heart Center at [facility] [address] [facility], 2nd [place] [phone] Larry Hernández PA Cerebrovascular accident (CVA), unspecified mechanism (HCC) (Primary Dx); Pulmonary hypertension (HCC); Atrial fibrillation s/p atrial fibrillation ablation on 01/31/24; Coronary artery disease involving [place] coronary artery of [place] heart without angina pectoris; Cardiac pacemaker in situ; Orthostatic hypotension; Stage 3b chronic kidney disease (HCC) Discharge Disposition: Home with No Service 03/05/2025 9:53 AM GARMENT EXAMINER - 03/05/2025 12:03 PM GARMENT EXAMINER Hospital Encounter [facility] [address] [facility], [address]nd [place] [phone] Pulmonary hypertension (HCC); Chronic right-sided heart failure (HCC); Chronic heart failure with preserved ejection fraction (HCC); Atrial fibrillation, unspecified type (HCC) Discharge Disposition: Home with No Service 02/24/2025 Telephone Family Medicine at [address] [place] [address] Ekaterina Best LPN 02/18/2025 3:30 PM CDT Office Visit Pulmonary at [facility] [address] [facility], 5th [place] [phone] Larry Andrade DO Pulmonary nodules (Primary Dx) Discharge Disposition: Home with No Service 02/17/2025 Telephone Family Medicine at [address] [place] [address] Ekaterina Best LPN 01/29/2025 1:00 PM CDT Office Visit [facility] [address] [place] [address] Héctor Roman MD Hospital discharge follow-up (Primary Dx); Chronic heart failure with preserved ejection fraction (HCC); Panic disorder; Atrial fibrillation with rapid ventricular response (HCC) Discharge Disposition: Home with No Service 01/24/2025 Care Management Family Medicine at [address] [place] [address] Luciano Chris RN Hospital Follow-up (Completed) - 01/23/2025 Care Management Family Medicine at [address] [place] [address] Luciano Chris RN Hospital Follow-up (1st attempt) - 2025 11:19 AM CDT - 01/22/2025 1:34 PM CDT Hospital Encounter [facility] F[address] [place] [phone] Dwayne Snyder MD Anderl, Patrick C, MD CHF exacerbation (HCC) (Primary Dx); Panic disorder Discharge Disposition: Home with No Service 2025 10:27 AM CDT - 2025 11:18 AM CDT Hospital Encounter [facility] [address] [place] [address] [place] [phone] Pulmonary nodules Discharge Disposition: Home with No Service 2025 Orders Only Family Medicine at [address] [place] [address] Héctor Roman MD 01/15/2025 Orders Only Family Medicine at [address] [place] [address] Héctor Roman MD Medication management from Last 3 Months Immunizations Immunization Administration Dates Next Due (Historical) Moderna Covid-19 08/06/2021, 021,06/03/2020 FLU VACCINE QUADRIVALENT ADJUVANTED PF ,01/31/2020 FLU VACCINE QUADRIVALENT PF 03/04/2010,0 01/09/2009,02/18/2008,02/20,03/28/2006,03/22/2005,03/12/2004 ,03/31/2003,04/03/2002,03/28/2001 FLU VACCINE TRIVALENT ADJUVANTED PF 01/02/2024 Flu Vaccine Quadrivalent High Dose 02/05/2023, Flu Vaccine Trivalent High Dose 02/22/20 19,02/07/2018,02/20/2017,02/08,01/09/2014,01/28/2013,03/03/2011 Flu Vaccine Trivalent PF 01/11/2012,1107/2009,01/09/2009,02/17,02/20/2007 Flu Vaccine Trivalent with Preservative 01/29/2018 Flu Vaccine, Patient Reported 01/17/2022, 010 Moderna Bivalent Covid-19 01/17/2022 Moderna Covid-19 12yrs + 01/02/2024 Pneumococcal Conjugate 13 Valent 01/10/2015 Pneumococcal Polysaccharide 08/09/2017,0 05/01/2017,04/10/2012,03/15 Pneumococcal Unspecified 01/10/2015 RSV Recombinant 05/03/2023 Td 12/27/2007 Tdap 04/10/2012 Varicella Zoster Recombinant 05/04/2022,03/15/20 22 Zoster 05/23/2007,05/01/2007 Family History Medical History Relation Name Comments Lung cancer Father Malignant neoplasm of gallbladder Maternal Aunt Cancer of mouth Maternal Cousin Breast cancer Maternal Grandmother Bone cancer Maternal Uncle Breast cancer Mother two primaries, bilateral mastectomy, ages 60 & 66 Breast cancer Paternal Grandfather Breast cancer Paternal Grandmother Lung cancer Paternal Uncle Ovarian cancer Neg Hx Relation Name Status Comments Father Maternal Aunt Maternal Cousin Maternal Grandmother Maternal Uncle Mother Paternal Grandfather Paternal Grandmother Paternal Uncle Social History Tobacco Use Types Packs/Day Years Used Date Smoking Tobacco: Never Passive Smoke Exposure: Past Smokeless Tobacco: Never Tobacco Cessation:Counseling Given: Not Answered Alcohol Use Standard Drinks/Week Comments Not Currently 0 (1 standard drink = 0.6 oz pur e alcohol) [facility] Utilities Answer Date Recorded In the past 12 months has th e electric, gas, oil, or water company threatened to shut off services in your home? No 01/21/2025 AUDIT-C Answer Date Recorded Q1: How often do you have a drink containing alc ohol? Never 07/09/2020 Average Number of Drinks Not on file 021 Frequency of Binge Drinking Not on file 06/29 Overall Financial Resource Strain (CARDIA) Answe r Date Recorded How hard is it for you to pa y for the very basics like food, housing, medical care, and heating? Not hard at all 04/03/2023 Hunger Vital Sign Answer Date Recorded Within the past 12 months, y ou worried that your food would run out before you got the money to buy more. Never true 01/22/20 25 Within the past 12 months, t he food you bought just didn't last and you didn't have money to get more. Never true 01/21/2025 PRAPARE - Transportation Answer Date Re corded In the past 12 months, has l ack of transportation kept you from medical appointments or from getting medications? No 12/31 In the past 12 months, has l ack of transportation kept you from meetings, work, or from getting things needed for daily living? No 01/21/2025 Housing Stability Vital Sign Answer Mendel e Recorded In the last 12 months, was t here a time when you were not able to pay the mortgage or rent on time? No 04/03/2023 In the last 12 months, how many places have you lived? 1 04/03/2023 In the last 12 months, was t here a time when you did not have a steady place to sleep or slept in a retirement (including now)? No 04/03/2023 Housing Stability Vital Sign Answer Mendel e Recorded In the last 12 months, was t here a time when you were not able to pay the mortgage or rent on time? No 01/21/2025 Number of Times Moved in the Last Year Not on fi le 01/21/2025 At any time in the past 12 m [facility], were you homeless or living in a retirement (including now)? No 01/21/2025 Depression Answer Date Recorded PHQ-2 Screening Total 0 01/01/2025 Interpersonal Safety Screen Answer Date Recorded Are you in a relationship wh ere you have been physically or emotionally hurt or threatened? No 2025 Comments No Sex and Gender Information Value Date Recorded Sex Assigned at Female 10/08/2024 2:02 PM CDT Legal Sex Female 5:42 AM GARMENT EXAMINER Gender Identity Female 10/08/2024 2:02 PM CDT Sexual Orientation Straight 07/17/2018 5: 07 PM CDT Occupation Industry Job Start Date Job End Date retired Not on file Not on file Not on file Last Filed Vital Signs Vital Sign Reading Time Taken Comments Blood Pressure 124/79 03/17/2025 9:43 AM GARMENT EXAMINER Pulse 86 03/17/2025 9:43 AM GARMENT EXAMINER Temperature 36.1 C (97 F) 03/05/2025 11:09 AM GARMENT EXAMINER Respiratory Rate 18 03/05/2025 11:09 AM GARMENT EXAMINER Oxygen Saturation 90% 03/05/2025 11:09 AM GARMENT EXAMINER Inhaled Oxygen Concentration - - Weight 54.9 kg (121 lb) 03/05/2025 11:09 AM GARMENT EXAMINER Height 152.4 cm (5') 03/05/2025 11:09 AM GARMENT EXAMINER Body Mass Index 23.63 03/05/2025 11:09 AM GARMENT EXAMINER Plan of Treatment Upcoming Encounters Date Type Department Care Team (Late st Contact Info) Description 04/14/2025 12:20 PM GARMENT EXAMINER Appointment [facility] [address] [place] [address] [place] [phone] 04/18/2025 11:15 AM GARMENT EXAMINER Appointment [facility] at [address] [place] [phone] 06/25/2025 7:45 AM GARMENT EXAMINER Clinical Support [facility] [address] [facility], [address] [place] [phone] 08/19/2025 1:30 PM CDT Office Visit Pulmonary at [facility] [address] [facility], 5th [place] [phone] [place] [id number] [facility] [place] [phone] [email or web address] 08/27/2025 12:50 PM CDT Clinical Support [facility] [address] [facility], 2nd [place] [phone] 08/27/2025 1:00 PM CDT Office Visit [facility] [address] [facility], 2nd [place] [phone] Thalia Marshall MD [address] [facility] [address] [place] [phone] [email or web address] 09/08/2025 11:00 AM CDT Office Visit [address] [place] [phone] Constantine Reardon MD [address] [facility] [address] [place] [address] [email or web address] 12/23/2025 11:00 AM CDT Appointment [facility] [address] [place] [address] [place] [phone] 12/23/2025 11:30 AM CDT Office Visit [facility] at [facility] [address] [facility] [address] [place] [phone] Antonella Herrmann PA-C [address] [facility] [address] [place] [phone] [email or web address] Due Date Last Done Comments Td,Tdap vaccines (2 - Td or Tdap) 04/10/2022 04/10/2012, 12/27/2007 Bone Density Screening 11/14/2024 , 08/06/2018, 03/07/2016 Medicare Annual Wellness Visit (Subsequent) 11/21/2024 11/22/2023, 04/27/2022, 12/14/2020, Additional history exists COVID-19 Vaccines ( season) 2025 02/23/2025, 01/02/2024, 02/05/2023, Additional history exists Pneumococcal vaccines: 50+ years Completed 08/09/2017, 05/01/2017, 01/10/2015, Additional history exists Herpes zoster vaccines Completed , 03/15/2022, 05/23/2007, Additional history exists RSV Vaccine Completed 05/03/2023 Influenza vaccines Completed 02/23/2025, 0 01/02/2024, 02/05/2023, Additional history exists HPV vaccines Aged Out No longer eligi ble based on patient's age to complete this topic Meningococcal serogroup B vaccines Aged Out No longer eligible based on patient's age to complete this topic Goals Goal Patient Goal Type Associated Problems Recent Progress Patient-Stated? Author Lifestyle < 130/80 Lifestyle 124/79(2024 9:43 AM GARMENT EXAMINER) Rosalina Altamirano, RN Note: Patient progress: Initiated Medical Devices Implanted Type Area Quality Measurement Specialist Device Identifier Shelf Expiration Date Model / Serial / Lot Lead Select Sure 69cm - [id number] Implanted:Qt y: 1 on 01/17/2023 by Junior Chris MD at [facility] Lead N/A: Right Ventricle [employer] [facility] 11/11/2024 [id number] / [id number] / Lead Novus Capsure 52cm Ari - [id number] Implanted:Qt y: 1 on 01/17/2023 by Junior Chris MD at [facility] Lead N/A: Right Atrium [employer] [facility] 09/30/2024 [id number] / [id number] / Pacemaker Destinee Xt Dr Claritza Schultz - [id number] Implanted:Qt y: 1 on 01/17/2023 by Junior Chris MD at [facility] Pacemaker Left: Chest [employer] [facility]M [facility]NAGEMENT 05/14/2024 [id number] / [id number] / Loop Recorder Cement Bone Cmw High Viscosity 40gm - [id number] Implanted:Qt y: 1 on 01/23/2014 by Hair Escobar MD at [facility] [place] Left: Knee [employer] 02/28/2015 [id number] / [id number] / [id number] Patella Depuy Sigma 32mm Round Pfc 3 Peg Knee - [id number] Implanted:Qt y: 1 on 01/23/2014 by Hair Escobar MD at [facility] [place] Left: Knee [employer] 11/28/2018 [id number] / / [id number] Tray Tibial Depuy Modular Sz 2 Ten Knee - [id number] Implanted:Qt y: 1 on 01/23/2014 by Hair Escobar MD at [facility] [place] Left: Knee [employer] 09/29/2023 [id number] / / [id number] Component Fem Depuy Sigma Sz 2.5 Post Stab Left Knee - [id number] Implanted:Qt y: 1 on 01/23/2014 by Hair Escobar MD at [facility] [place] [employer] 09/28/2022 [id number] / / [id number] Insert Tibial Depuy Pfc Sz 2 20mm - [id number] Implanted:Qt y: 1 on 01/23/2014 by Hair Escobar MD at [facility] [place] CONVERSION FROM FILE 05/31/2015 [id number] / / [id number] Insert Tibial Depuy Sigma Plus Sz 2 12.5mm Xlk Crvd Knee - [id number] Implanted:Qt y: 1 on 07/03/2014 by Hair Escobar MD at [facility] [place] [employer] 04/30/2017 [id number] / / [id number] Cement Bone Cmw High Viscosity 40gm - [id number] Implanted:Qt y: 1 on 07/03/2014 by Hair Escobar MD at [facility] [place] Right: Knee [employer] 02/28/2015 [id number] / / [id number] Patella Depuy 32mm Sm 3 Peg Round Dome - [id number] Implanted:Qt y: 1 on 07/03/2014 by Hair sEcobar MD at [facility] [place] Right: Patella [employer] 07/29/2014 [id number] / / [id number] Component Fem Depuy Sigma Sz 2.5 [id number] Non Porous Right Knee - [id number] Implanted:Qt y: 1 on 07/03/2014 by Hair Escobar MD at [facility] [place] Right: Femur [employer] 03/30/2017 [id number] / / [id number] Tray Tibial Depuy Modular Sz 2 Ten Knee - [id number] Implanted:Qt y: 1 on 07/03/2014 by Hair Escobar MD at [facility], [place] Right: Tibia [employer] 1581-20-000 / / [id number] Screw Autofix 2.0x20mm T7 Dr Elaina Comp Elbow - [id number] Implanted:Qt y: 1 on 09/13/2021 by Dwayne Summers MD at [facility], [place] Right: Hand [employer] 141-2020 / / Explanted Type Area Quality Measurement Specialist Device Identifier Shelf Expiration Date Model / Serial / Lot Reveal LinqBmc Ship 2nd Day Air - [id number] Implanted:Qty: 1 on 09/10/2015 by Junior Chris MD at [facility] Explanted:Qty: 1 on 03/04/2019 by Junior Chris MD at [facility] Left: Chest [employer] - CARDIAC RHYTHM MANAGEMENT [id number] / [id number] / Wire K Stryk [id number] Trocar Ss Elbow - [id number] Explanted:Qty: 1 on 09/13/2021 by Dwayne Summers MD at [facility], [place] Right: Hand [employer] [id number] / / Procedures Procedure Name Priority Date/Time Associated Diagnosis Comments CHRONIC HEART FAILURE PEPTIDE Routine 03/05/2025 12:08 PM GARMENT EXAMINER Pulmonary hypertension (HCC) Chronic right-sided heart failure (HCC) Chronic heart failure with preserved ejection fraction (HCC) Atrial fibrillation, unspecified type (HCC) COMPREHENSIVE METABOLIC PANEL STAT 03/05/2025 12:07 PM GARMENT EXAMINER Age-related osteoporosis without current pathological fracture ECHOCARDIOGRAM 2D COMPLETE, CONTRAST IF NEEDED Routine 03/05/2025 10:07 AM GARMENT EXAMINER Pulmonary hypertension (HCC) Chronic right-sided heart failure (HCC) Chronic heart failure with preserved ejection fraction (HCC) Atrial fibrillation, unspecified type (HCC) MAGNESIUM Routine 01/22/2025 3:11 AM CDT HC CBC & PLT W/ AUTOMATED DIFF Routine 01/22/2025 3:11 AM CDT BASIC METABOLIC PANEL Routine 01/22/2025 3:11 AM CDT LISETTE STAT CODE Routine 01/22/2025 12:06 AM CDT MAGNESIUM Routine 01/21/2025 3:09 AM CDT HC CBC & PLT W/ AUTOMATED DIFF Routine 01/21/2025 3:09 AM CDT BASIC METABOLIC PANEL Routine 01/21/2025 3:09 AM CDT LISETTE STAT CODE Routine 01/21/2025 12:06 AM CDT LISETTE STAT CODE Routine 2025 9:39 PM CDT EXTRA REYNAGA TUBE Routine 2025 12:58 PM CDT EXTRA CITRATE TUBE Routine 2025 12 :58 PM CDT HC CBC & PLT W/ AUTOMATED DIFF STAT 2025 12:58 PM CDT CHRONIC HEART FAILURE PEPTIDE STAT 2025 12:58 PM CDT UA WITH REFLEX MICROSCOPIC STAT 2025 12:58 PM CDT COMPREHENSIVE METABOLIC PANEL STAT 2025 12:58 PM CDT TROPONIN I STAT 2025 12:58 PM CDT XR CHEST PA OR AP ONLY STAT 12:24 PM CDT HC 12 LEAD EKG STAT 2025 12:17 PM CDT POC ED US THORACIC/LUNG STAT 2025 11:57 AM CDT POC ED US CARDIAC LIMITED STAT 2025 11:[address] CHEST (THORAX) W CONTRAST Routine 2025 10:57 AM CDT Pulmonary nodules POCT CREATININE (ISTAT), [facility] Routine 2025 10:40 AM CDT CARD/ECG - SCANNED DOCUMENTS 2025 CARD/ECG - SCANNED DOCUMENTS 2025 CARD/ECG - SCANNED DOCUMENTS 2025 CARD/ECG - SCANNED DOCUMENTS 2025 CARD/ECG - SCANNED DOCUMENTS 2025 XR BONE DENSITY DEXA CENTRAL Routine 11/14/2022 11:22 AM CDT Age-related osteoporosis without current pathological fracture Aromatase inhibitor use from Last 3 Months or Most Recently Relevant to Health Maintenance Results * (ABNORMAL) Chronic heart failure peptide (BNP) (03/05/2025 12:08 PM GARMENT EXAMINER) Only the most recent of2 resultswithin the time period is included. CHF Peptide 375(H) 0 - 100 pg/mL 03/05/2025 1:47 PM GARMENT EXAMINER [facility] Lab Blood BLOOD SPECIMEN / Unknown 03/05/2025 12:08 PM GARMENT EXAMINER 03/05/2025 12:22 PM GARMENT EXAMINER us Thalia Marshall MD LAB BLOOD ORDERABLES Final Resul t [facility] [id number] [place] [address], [facility] [phone] [facility] [id number] [place], [place] * (ABNORMAL) Comprehensive metabolic panel (03/05/2025 12:07 PM GARMENT EXAMINER) Only the most recent of2 resultswithin the time period is included. Pathologist [facility] AST 14(L) 15 - 41 U/L 03/05/2025 1:40 PM GARMENT EXAMINER [facility] Lab Alkaline Phosphatase 55 32 - 91 U/L 03/05/2025 1:40 PM GARMENT EXAMINER [facility] Total Bilirubin 0.6 0.3 - 1.0 mg/dL 03/05/2025 1:40 PM GARMENT EXAMINER [facility] Calcium 10.7(H) 8.6 - 10.4 mg/dL 03/05/2025 1:40 PM GARMENT EXAMINER [facility] Comment:Ionized calcium is r ecommended for confirmation of abnormal total calcium results. Total Protein 8.0 5.8 - 8.2 g/dL 03/05/2025 1:40 PM GARMENT EXAMINER [facility] Albumin 4.5 3.5 - 5.1 g/dL 03/05/2025 1:40 PM GARMENT EXAMINER [facility] Glucose, Blood 100 70 - 139 mg/dL 03/05/2025 1:40 PM GARMENT EXAMINER [facility] BUN 23(H) 6 - 20 mg/dL 03/05/2025 1:40 PM GARMENT EXAMINER [facility] Lab Creatinine 1.44(H) 0.44 - 1.03 mg/dL 03/05/2025 1:40 PM GARMENT EXAMINER [facility] Lab BUN/Creatinine Ratio 16.0 10.0 - 20.0 mgUN/mgCR 03/05/2025 1:40 PM GARMENT EXAMINER [facility] Lab Sodium, Blood 140 136 - 145 mmol/L 03/05/2025 1:40 PM [facility] Lab Potassium, Blood 4.6 3.5 - 5.1 mmol/L 03/05/2025 1:40 PM GARMENT EXAMINER [facility] Lab Chloride, Blood 100 98 - 107 mmol/L 03/05/2025 1:40 PM GARMENT EXAMINER [facility] Lab Osmolality, Calculated 293 275 - 295 mOsm/kg 03/05/2025 1:40 PM GARMENT EXAMINER [facility] Lab CO2 26 22 - 32 mmol/L 03/05/2025 1:40 PM [facility] Lab Anion Gap 14 4 - 15 mmol/L 03/05/2025 1:40 PM GARMENT EXAMINER [facility] Lab ALT 7 7 - 52 U/L 03/05/2025 1:40 PM GARMENT EXAMINER [facility] Lab CKD-EPI eGFR 35(L) >59 mL/min/1.7 3 m2 03/05/2025 1:40 PM GARMENT EXAMINER [facility] Lab Blood BLOOD SPECIMEN / Unknown 03/05/2025 12:07 PM GARMENT EXAMINER 03/05/2025 12:22 PM GARMENT EXAMINER us Héctor Roman MD LAB BLOOD ORDERABLES Final R esult [facility] [id number] [place] [address], [facility] [phone] [facility] [id number] [place], [place] * Echocardiogram 2D complete, contrast if needed (03/05/2025 10:07 AM GARMENT EXAMINER) EF 55-60% XCELERA EF lower range 55 XCELERA EF upper range 60 XCELERA 03/05/2025 10:0 7 AM GARMENT EXAMINER Narrative PAMELA - 03/05/2025 12:57 PM GARMENT EXAMINER Study ID: [id number] Echocardiogram Name: SHANI FUENTES Study Date: 03/05/2025 10:07 AM BP: 130/71 mmHg Patient Class: Outpatient [id number] : 1935 Location:^^^COUNT INCLUDES THE [facility] Height: 60 in Age: 89 yrs Gender: Female Weight: 126 lb Indication: Pulmonary hypertension BSA: 1.5 m2 Ordering: THALIA MARSHALL Referring: EMMANUEL ELIAS Performed By: Deborah Lopez RDCS History: Atrial fibrillation, post ablations Two-dimensional imaging, color Doppler and spectral Doppler performed. MMode/2D Measurements & Calculations LVIDd: 4.0 cm RVDd: 3.3 cm LVIDs: 2.5 cm Ao root diam: 3.4 cm IVSd: 1.3 cm LVOT diam: 1.8 cm LVPWd: 0.97 cm LV Mass Index: 98.7 grams/m2 Rhythm Normal sinus rhythm. Left Ventricle LV Mass 98.7 grams/m^2. Relative Wall Thickness 0.49 . Normal left ventricle chamber size and systolic function. There is mild concentric left ventricular hypertrophy. Global Longitudinal Strain = - 21.4 %. Left ventricular end diastolic volume 36.4 ml. Left ventricular end systolic volume 12.6 ml. Left Ventricular ejection fraction = 55-60%. No regional wall motion abnormalities noted. Right Ventricle RV dimension 3.3 cm. There is a pacemaker/ICD lead in the right ventricle. FAC 34.8 %. Tricuspid Annular Excursion 1.6 cm. Right ventricular S' 10.8 cm/s. Atria LA Volume Index 53.5 ml/m2. The left atrium is severely dilated. RA Volume 27.9 ml/m2. Right atrial size is normal. The inferior vena cava is normal size and collapses normally with inspiration consistent with normal right atrial filling pressure. No interatrial shunting is noted by color Doppler. Mitral Valve Mild mitral annular calcification with focally calcified leaflets. There is no mitral valve stenosis. Trace mitral regurgitation. Tricuspid Valve Tricuspid valve appears structually normal. There is no tricuspid stenosis. Mild tricuspid regurgitation. Doppler derived pulmonary artery systolic pressure = 60-65 mmHg as best assessed by echocardiography. Aortic Valve The aortic valve appears morphologically tricuspid. Focal thickening of the aortic valve. There is moderate valvular aortic regurgitation. AI P1/2 time 450-500 ms. Pulmonic Valve The pulmonic valve appears structurally normal. There is no pulmonic valvular stenosis. Trace pulmonic regurgitation. Great Vessels The aortic root is normal size. Ascending aorta is within normal size limits. Pericardium/Pleural There is no pericardial effusion. Hemodynamics S/D Ratio0.5. E = 105. A = 32.5. Deceleration time = 174. E' = 5.8. Diastolic function is abnormal with Grade 3 pattern (restrictive filling). Strain imaging performed. Ultrasound enhancing agents were not administered due to diagnostic image quality. Conclusions: 1. Normal left ventricular size and function. Ejection fraction 55-60% 2. Normal right ventricular size and function 3. Grade III diastolic dysfunction 4. Moderate aortic regurgitation 5. Mild tricuspid regurgitation Electronically Interpreted by:Thang Chavira MD Finalized on 03/05/2025 12:57 PM Reviewed by fellow: us Thalia Marshall MD CV ECHO ORDERABLES Final Result XCELERA * CBC with differential, platelet (01/22/2025 3:11 AM CDT) Only the most recent of3 resultswithin the time period is included. WBC 4.7 4.0 - 11.0 X10E3/uL 01/22/2025 3:58 AM CDT [facility] RBC 4.56 3.70 - 5.10 X10E6/uL 01/22/2025 3:58 AM CDT [facility] Hemoglobin 12.5 11.0 - 15.1 g/dL 01/22/2025 3:58 AM [facility] Hematocrit 37.9 33.1 - 44.5 % 01/22/2025 3:58 AM [facility] MCV 83.2 79.0 - 97.0 fL 01/22/2025 3:58 AM [facility] MCHC 32.9 32.0 - 36.0 % 01/22/2025 3:58 AM [facility] RDW 15.5 11.3 - 15.5 % 01/22/2025 3:58 AM [facility] Platelet Count 198 150 - 400 X10E3/uL 01/22/2025 3:58 AM [facility] Differential Type Automated Diff 01/22/2025 3:58 AM [facility] Automated Abs Neutrophil Cnt 3.0 1.3 - 7.5 X10E3/uL 01/22/2025 3:58 AM [facility] Comment:Auto ANC to be confi rmed by manual count if indicated. Neutrophils Relative 63 % 01/22/2025 3:58 AM [facility] Lymphocytes percent 20 % 01/22/2025 3:58 AM [facility] Monocytes Relative 9 % 01/22/2025 3:58 AM [facility] Eosinophils Relative 5 % 01/22/2025 3:58 AM [facility] Basophils Relative 3 % 01/22/2025 3:58 AM [facility] Lymphocytes Absolute 0.9 0.7 - 3.9 X10E3/uL 01/22/2025 3:58 AM [facility] Monocytes Absolute 0.4 0.1 - 1.0 X10E3/uL 01/22/2025 3:58 AM [facility] Eosinophils Absolute 0.2 0.0 - 0.5 X10E3/uL 01/22/2025 3:58 AM [facility] Basophils Absolute 0.1 0.0 - 0.1 X10E3/uL 01/22/2025 3:58 AM [facility] Blood BLOOD SPECIMEN / Unknown 01/22/2025 3:11 AM CDT 01/22/2025 3:50 AM CDT Héctor Roman MD LAB BLOOD ORDERABLES Final R on license of [facility] [address] [place] [address] [facility] [address] [place] [id number] * Magnesium (01/22/2025 3:11 AM CDT) Only the most recent of2 resultswithin the time period is included. [facility] Magnesium 2.0 1.8 - 2.5 mg/dL 01/22/2025 4:11 AM CDT [facility] Blood BLOOD SPECIMEN / Unknown 01/22/2025 3:11 AM CDT 01/22/2025 3:50 AM CDT Héctor Roman MD LAB BLOOD ORDERABLES Final R on license of [facility] [address] [place], [place] [id number] [facility] [address] [place] [id number] * (ABNORMAL) Basic metabolic panel (01/22/2025 3:11 AM CDT) Only the most recent of2 resultswithin the time period is included. Sodium, Blood 137 136 - 145 mmol/L 01/22/2025 4:11 AM CDT [facility] Potassium, Blood 3.4(L) 3.5 - 5.1 mmol/L 01/22/2025 4:11 AM T [facility] Chloride, Blood 103 98 - 107 mmol/L 01/22/2025 4:11 AM CDT [facility] CO2 26 22 - 32 mmol/L 01/22/2025 4:11 AM T [facility] Anion Gap 8 4 - 15 mmol/L 01/22/2025 4:11 AM [facility] Glucose, Blood 92 70 - 139 mg/dL 01/22/2025 4:11 AM [facility] BUN 21(H) 6 - 20 mg/dL 01/22/2025 4:11 AM [facility] Creatinine 1.26(H) 0.44 - 1.03 mg/dL 01/22/2025 4:11 AM [facility] BUN/Creatinine Ratio 16.7 10.0 - 20.0 mgUN/mgCR 01/22/2025 4:11 AM [facility] Osmolality, Calculated 286 275 - 295 mOsm/kg 01/22/2025 4:11 AM [facility] Calcium 8.5(L) 8.6 - 10.4 mg/dL 01/22/2025 4:11 AM [facility] CKD-EPI eGFR 41(L) >59 mL/min/1.7 3 m2 01/22/2025 4:11 AM [facility] Blood BLOOD SPECIMEN / Unknown 01/22/2025 3:11 AM CDT 01/22/2025 3:50 AM CDT us Héctor Roman MD LAB BLOOD ORDERABLES Final R esult [facility] [address] [place] [id number] [facility] [address] [place] [id number] * Extra reynaga tube (2025 12:58 PM CDT) Leslie lab hold Specimen in Lab 2025 1:04 PM T [facility] BLOOD SPECIMEN / Unknown 2025 12:58 PM CDT 2025 1:04 PM CDT us Dwayne Snyder MD LAB BLOOD ORDERABLES Final R esult [facility] [address] [place] [address] [facility] [address] [place] [phone] * Extra citrate tube (2025 12:58 PM CDT) Citrate Lab Hold Specimen in Lab 2025 1:04 PM CDT [facility] BLOOD SPECIMEN / Unknown 2025 12:58 PM CDT 2025 1:04 PM CDT us Dwayne Snyder MD LAB BLOOD ORDERABLES Final R esult [facility] [address] [place] [id number] [facility] [address] [place] [phone] * hsTroponin I (2025 12:58 PM CDT) Troponin I, hs 7 <16 ng/L 2025 2:11 PM CDT [facility] Comment:See Hyperlink for kasey castanon algorithms. Delta troponin I, hs NOT CALCULATED <11 ng/L 2025 2:11 PM CDT [facility] Blood BLOOD SPECIMEN / Unknown 2025 12:58 PM CDT 2025 1:04 PM CDT us Dwayne Snyder MD LAB BLOOD ORDERABLES Final R esult [facility] [address] [place] [address] [facility] [address] [place] [id number] * (ABNORMAL) UA with reflex microscopic (2025 12:58 PM CDT) Specimen UA Urine Clean Catch 2025 11:45 AM T [facility] Color UA, POC Yellow 2025 1:19 PM T [facility] Appearance UA Clear 2025 1:19 PM T [facility] Glucose, UA 500(A) Negative mg/dL 2025 1:19 PM T [facility] Bilirubin, UA Negative Negative 2025 1:19 PM [facility] Ketones, UA Negative Negative mg/dL 2025 1:19 PM [facility] Specific [place] UA 1.010 1.003 - 1.032 2025 1:19 PM [facility] Blood, UA Trace(A) Negative 2025 1:19 PM [facility] pH, UA 7.5 4.5 - 8.0 2025 1:19 PM [facility] Protein UA Negative Negative mg/dL 2025 1:19 PM [facility] Urobilinogen, UA Normal Normal mg/dL 2025 1:19 PM [facility] Nitrite, UA Negative Negative 2025 1:19 PM T [facility] Leukocyte Esterase UA Negative Negative 2025 1:19 PM T [facility] Urine URINE SPECIMEN / Unknown 2025 12:58 PM CDT 2025 1:15 PM CDT us Dwayne Snyder MD URINE ORDERABLES Final Resul t [facility] [address] [place] [address] [facility] [address] [place] [address] * XR chest PA or AP only (2025 12:24 PM CDT) Anatomical Region Laterality Modality Chest Computed Radiogr aphy 2025 12:3 3 PM CDT Narrative 2025 12:34 PM CDT XR CHEST PA OR AP ONLY Impression: 1. Increased patchy bibasilar opacities, suspect atelectasis given rapid interval development. 2. Diffuse interstitial prominence which could be chronic or secondary to mild pulmonary edema or atypical infection. Indication: SOB Comparison: CT 1 hour prior and chest radiograph 07/19/2024 Discussion: See above.Unchanged cardiomediastinal silhouette. Left subclavian approach pacer device, unchanged. Procedure Note Gabby Berry MD - 2025 XR CHEST PA OR AP ONLY Impression: 1. Increased patchy bibasilar opacities, suspect atelectasis given rapidinterval development. 2. Diffuse interstitial prominence which could be chronic or secondary tomild pulmonary edema or atypical infection. Indication: SOB Comparison: CT 1 hour prior and chest radiograph 07/19/2024 Discussion: See above.Unchanged cardiomediastinal silhouette. Leftsubclavian approach pacer device, unchanged. Dwayne Snyder MD IMG DIAGNOSTIC IMAGING ORDER YUNIEL Final Result * Inpatient electrocardiogram 12 lead (INITIAL EKG) (2025 12:17 PM CDT) 2025 12:1 7 PM CDT 01/22/2025 1:37 PM CDT Narrative MUSE - 01/22/2025 1:37 PM CDT Ventricular Rate: 75BPM Atrial Rate: 75BPM P-R Interval: 208ms QRS Duration: 78ms Q-T Interval: 406ms QTC Calculation(Bazett): 453ms P [place]: 75degrees R [place]: -36degrees T [place]: 48degrees Atrial-paced rhythm Left axis deviation Minimal voltage criteria for LVH, may be normal variant ( R in aVL ) Abnormal ECG When compared with ECG of 31-May-2024 15:06, Electronic atrial pacemaker has replaced Atrial flutter Confirmed by Blake Cook ([id number]) on 01/22/2025 1:37:50 PM Dwayne Snyder MD ECG ORDERABLES Final Result MUSE * POC ED US thoracic/lung (2025 11:57 AM CDT) Anatomical Region Laterality Modality Ultrasound 2025 11:4 9 AM CDT Narrative 01/23/2025 5:25 AM CDT Clinical Thoracic Indication(s) for Exam: Dyspnea Views: Right Anterior Thorax: Adequate Right Lateral Thorax: Adequate Right Hemidiaphragm: Adequate Left Anterior Thorax: Adequate Left Lateral Thorax: Limited Left Hemidiaphragm: Limited Thoracic Findings: Lung Sliding: Present Bilaterally Lung Comet Tails/B-Lines: Present Bilaterally (Postive with 2-3 comet tails present per rib space) Lung point sign: Absent Bilaterally (Negative for Pneumothorax) Free Thoracic Fluid: Absent Bilaterally (Negative) Other: There are sporadic b-line in the upper anterior lung bilaterally of unclear significance. On the right lateral lung b-lines are present. Left lateral lung was not adequately imaged for assessment. There is some irregularity along the pleural line. Thoracic Ultrasound Interpretation: Other: Evidence of interstitial syndrome that may be cardiogenic in nature but may be due to other interstitial syndrome such as infection. Electronically signed by Larry Hand on December at 5:25 AM Procedure Note Larry Hand MD - 01/23/2025 Clinical Thoracic Indication(s) for Exam: Dyspnea Views: Right Anterior Thorax: Adequate Right Lateral Thorax: Adequate Right Hemidiaphragm: Adequate Left Anterior Thorax: Adequate Left Lateral Thorax: Limited Left Hemidiaphragm: Limited Thoracic Findings: Lung Sliding: Present Bilaterally Lung Comet Tails/B-Lines: Present Bilaterally (Postive with 2-3comet tails present per rib space) Lung point sign: Absent Bilaterally (Negative for Pneumothorax) Free Thoracic Fluid: Absent Bilaterally (Negative) Other: There are sporadic b-line in the upper anterior lungbilaterally of unclear significance. On the right lateral lung b-linesare present. Left lateral lung was not adequately imaged for assessment.There is some irregularity along the pleural line. Thoracic Ultrasound Interpretation: Other: Evidence of interstitial syndrome that may be cardiogenicin nature but may be due to other interstitial syndrome such asinfection. Electronically signed by Larry Hand on December at5:25 AM us Dwayne Snyder MD [facility] [place] US ORDERABLES Final Resu lt * POC ED US cardiac limited (2025 11:50 AM CDT) Anatomical Region Laterality Modality Ultrasound 2025 11:4 1 AM CDT Narrative 01/23/2025 5:17 AM CDT Clinical Cardiac Indication(s) for Exam: Shortness of Breath Views: Parasternal Long [place]: Adequate Parasternal Short [place]: Limited Apical Four-Chamber: Limited Subxiphoid (4 chamber): Limited Subxiphoid IVC: Adequate Findings: Global Left Ventricular Function: Normal Right Ventricle: Normal Pericardial Effusion: None IVC: > 50% Collapse Other: Left ventricular hypertrophy present. Liver cysts present Interpretation:: Global Left Ventricular Function: Normal Pericardial Effusion: No sonographic evidence of significant pericardial effusion IVC: Distended IVC with GREATER than 50% collapse with respiration (Estimated CVP 5- 10) Other:: Left ventricular hypertrophy present. Liver cysts present Electronically signed by Larry Hand on December at 5:17 AM Procedure Note Larry Hand MD - 01/23/2025 Clinical Cardiac Indication(s) for Exam: Shortness of Breath Views: Parasternal Long [place]: Adequate Parasternal Short [place]: Limited Apical Four-Chamber: Limited Subxiphoid (4 chamber): Limited Subxiphoid IVC: Adequate Findings: Global Left Ventricular Function: Normal Right Ventricle: Normal Pericardial Effusion: None IVC: > 50% Collapse Other: Left ventricular hypertrophy present. Liver cystspresent Interpretation:: Global Left Ventricular Function: Normal Pericardial Effusion: No sonographic evidence of significantpericardial effusion IVC: Distended IVC with GREATER than 50% collapse withrespiration (Estimated CVP 5-10) Other:: Left ventricular hypertrophy present. Liver cystspresent Electronically signed by Larry Hand on December at5:17 AM us Dwayne Snyder MD [facility] US ORDERABLES Final Resu lt * CT chest (thorax) w contrast (2025 10:57 AM CDT) Anatomical Region Laterality Modality Chest N/A Computed Tomogra phy 2025 11:1 0 AM CDT Narrative 2025 11:[address] CHEST (THORAX) W CONTRAST 2025 11:20 AM IMPRESSION: 1. Stable 0.9 cm right middle lobe pulmonary nodule. 2. Bandlike nodular opacity within the left lower lung with areas of calcification, stable to mildly decreased in size, indeterminate. Continued surveillance is recommended. 3. Diffuse groundglass and solid pulmonary nodules, new from prior, likely infectious or inflammatory given interval development. 4. Mosaic attenuation of the lungs, similar to prior, commonly seen with small airways disease (such as bronchiolitis or hypersensitivity pneumonitis) or small vessel disease. 5. Enlargement of the pulmonary trunk, 3.9 cm, which can be seen with but is not diagnostic of pulmonary hypertension. 6. Cardiomegaly with enlargement left atrium. 7. Mediastinal and right hilar lymphadenopathy, stable since 2021. INDICATION: Lung nodule follow-up TECHNIQUE: CT of the chest with contrast. COMPARISON: Chest CT 10/23/2024 and 11/11/2021. FINDINGS: Left chest wall dual-lead pacemaker. Mosaic attenuation the lungs which can be seen with small airways disease (such as bronchiolitis and hypersensitivity pneumonitis) or small vessel disease, similar to prior. Numerous new groundglass and solid pulmonary nodules, involving the right greater than left lung, presumably infectious/inflammatory given interval development. For example, within the central left lingula there is a new nodule measuring 1.0 x 0.3 cm. The previously described right middle lobe pulmonary nodule is stable in size, 0.9 cm Bandlike opacity in the left lower lung with calcifications appear stable to slightly decreased in size, although increased since 10/2021, indeterminate, likely granulomatous. Changes of pulmonary emphysema. No pleural effusion. Stable mediastinal and hilar lymphadenopathy. For example a precarinal node is stable since 2021 measuring 1.8 x 1.0 cm and a right hilar node is stable measuring 1.4 cm short axis, 1.3 cm in 2021. Cardiomegaly with enlargement of the left atrium. No pericardial effusion. Coronary artery calcifications. Pulmonary artery trunk is enlarged, 3.9 cm, can be seen with but is not diagnostic of pulmonary artery hypertension. Multiple hepatic hypodensities, similar to prior, most meeting criteria for simple cysts, although some are too small to fully characterize. Otherwise limited imaging of the upper abdomen is unremarkable. No aggressive or destructive osseous lesions. I have participated in the interpretation of these images and approved this report. Procedure Note Tim Pantoja MD - 2025 CT CHEST (THORAX) W CONTRAST 2025 11:20 AM IMPRESSION: 1. Stable 0.9 cm right middle lobe pulmonary nodule. 2. Bandlike nodular opacity within the left lower lung with areas ofcalcification, stable to mildly decreased in size, indeterminate.Continued surveillance is recommended. 3. Diffuse groundglass and solid pulmonary nodules, new from prior,likely infectious or inflammatory given interval development. 4. Mosaic attenuation of the lungs, similar to prior, commonly seen withsmall airways disease (such as bronchiolitis or hypersensitivitypneumonitis) or small vessel disease. 5. Enlargement of the pulmonary trunk, 3.9 cm, which can be seen with butis not diagnostic of pulmonary hypertension. 6. Cardiomegaly with enlargement left atrium. 7. Mediastinal and right hilar lymphadenopathy, stable since 2021. INDICATION: Lung nodule follow-up TECHNIQUE: CT of the chest with contrast. COMPARISON: Chest CT 10/23/2024 and 11/11/2021. FINDINGS: Left chest wall dual-lead pacemaker. Mosaic attenuation the lungs which can be seen with small airways disease(such as bronchiolitis and hypersensitivity pneumonitis) or small vesseldisease, similar to prior. Numerous new groundglass and solid pulmonarynodules, involving the right greater than left lung, presumablyinfectious/inflammatory given interval development. For example, withinthe central left lingula there is a new nodule measuring 1.0 x 0.3 cm.The previously described right middle lobe pulmonary nodule is stable insize, 0.9 cm Bandlike opacity in the left lower lung with calcificationsappear stable to slightly decreased in size, although increased since10/2021, indeterminate, likely granulomatous. Changes of pulmonaryemphysema. No pleural effusion. Stable mediastinal and hilar lymphadenopathy. For example a precarinalnode is stable since 2021 measuring 1.8 x 1.0 cm and a right hilar node isstable measuring 1.4 cm short axis, 1.3 cm in 2021. Cardiomegaly withenlargement of the left atrium. No pericardial effusion. Coronary arterycalcifications. Pulmonary artery trunk is enlarged, 3.9 cm, can be seenwith but is not diagnostic of pulmonary artery hypertension. Multiple hepatic hypodensities, similar to prior, most meeting criteriafor simple cysts, although some are too small to fully characterize.Otherwise limited imaging of the upper abdomen is unremarkable. Noaggressive or destructive osseous lesions. I have participated in the interpretation of these images and approvedthis report. us Zay Simmons MD IMG CT ORDERABLES Final Resu lt * (ABNORMAL) POCT creatinine (ISTAT), [facility] (2025 10:40 AM CDT) [facility] Creatinine, ISTAT 1.3 0.6 - 1.3 mg/dL 2025 10:44 AM CDT [facility] Comment:Performed at [facility]/[address] [place] [address] /[place] [address] CKD-EPI eGFR I-STAT 39(L) >59 mL/min/1.7 3 m2 2025 10:44 AM CDT [facility] BLOOD SPECIMEN / Unknown 2025 10:40 AM CDT 2025 10:44 AM CDT us Poct Provider Ambulatory POINT OF CARE TEST O RDERABLES Final Result [facility] [address] [place] [id number] [facility] [address] [place] [id number] * Card/ECG - Scanned Documents (2025) Default Authenticator Castillo SCANNED DOCUMENTS Joanna l Result * Card/ECG - Scanned Documents (2025) Default Authenticator Castillo SCANNED DOCUMENTS Joanna l Result * Card/ECG - Scanned Documents (2025) us Default Authenticator Castillo SCANNED DOCUMENTS Joanna l Result * Card/ECG - Scanned Documents (2025) us Default Authenticator Castillo SCANNED DOCUMENTS Joanna l Result * Card/ECG - Scanned Documents (2025) us Default Authenticator Castillo SCANNED DOCUMENTS Joanna l Result * XR bone density dexa [facility] (11/14/2022 11:22 AM CDT) Anatomical Region Laterality Modality Digital Radiogra phy 11/14/2022 11:1 6 AM CDT Narrative 11/14/2022 11:21 AM CDT DXA SCAN INDICATION: Evaluate for osteoporosis, jail use of AI IMPRESSION: 1. Osteoporotic bone mineral density associated with increased risk of insufficiency fracture. DISCUSSION: Bone maps of the proximal femurs and left forearm were obtained using a [employer] DXA Scanner at [facility]. No comparison. Bone mineral density is low, falling into the category of osteoporosis according to World Health Organization criteria, and is associated with increased risk of insufficiency fracture. REGION BMD T-SCORE Z-SCORE DUAL NECK MEAN 0.766 -2.0 0.5 DUAL FEMUR MEAN 0.805 -1.6 0.7 L RADIUS 33% 0.473 -4.6 -1.4 The T-score shows bone loss expressed as the number of standard deviations from the (mean) peak bone density achieved by young adults. The Z-score shows bone loss expressed as the number of standard deviations from the mean of age, sex, and body habitus matched peers of similar ethnicity. The risk of osteoporotic fracture increases approximately two-fold for each 1.0 standard deviation decrease in T-score. 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 Osteoporotic bone mineral density associated with increased risk ofinsufficiency fracture. DISCUSSION: Bone maps of the proximal femurs and left forearm wereobtained using a [employer] advance DXA Scanner at [facility]. No comparison. Bone mineral density is low, falling into the category of osteoporosisaccording to World Health Organization criteria, and is associated withincreased risk of insufficiency fracture. REGION BMD T-SCORE Z-SCORE DUAL NECK MEAN 0.766 -2.0 0.5 DUAL FEMUR MEAN 0.805 -1.6 0.7 L RADIUS 33% 0.473 -4.6 -1.4 The T-score shows bone loss expressed as the number of standard deviationsfrom the (mean) peak bone density achieved by young adults. The Z-score shows bone loss expressed as the number of standard deviationsfrom the mean of age, sex, and body habitus matched peers of similarethnicity. The risk of osteoporotic fracture increases approximately two-fold foreach 1.0 standard deviation decrease in T-score. 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 Advance Directives and Livin g Will 06/13/2013 12:00 AM Advance Directives and Livin g Will 08/10/2010 12:00 AM Advance Directives and Livin g Will 09/30/2004 12:00 AM Advance Directives and Livin g Will 09/30/2004 12:00 AM * DNR/DNI (Latest Code Status on File) Date Activated Date Inactivated Comments 2025 5:33 PM 01/22/2025 3:39 PM Question Answer Comments Resuscitation contingencies discussed & agreement was reached with: Patient Decision making: Patient is able to m aayush informed choice about care * DNR/DNI Date Activated Date Inactivated Comments 05/31/2024 6:32 PM 06/01/2024 1:57 PM Question Answer Comments Resuscitation contingencies discussed & agreement was reached with: Patient Decision making: Patient is able to m aayush informed choice about care * Full Code Date Activated Date Inactivated Comments 01/31/2024 12:10 PM 02/07/2024 7:35 PM Use all res uscitation measures. If the provider is not the patient's attending physician, the provider attests that they have discussed this order with the patient's attending physician. Question Answer Comments Resuscitation contingencies discussed & agreement was reached with: Patient Decision making: Patient is able to m aayush informed choice about care * DNR/DNI Date Activated Date Inactivated Comments 11/07/2023 9:24 AM 11/08/2023 6:54 PM Question Answer Comments Resuscitation contingencies discussed & agreement was reached with: Patient Decision making: Patient is able to m aayush informed choice about care * DNR/DNI Date Activated Date Inactivated Comments 11/07/2023 8:05 AM 11/07/2023 9:24 AM Question Answer Comments Resuscitation contingencies discussed & agreement was reached with: Patient Decision making: Patient is able to m aayush informed choice about care Care Teams Product Marketing Executive Relationship Specialty Start Date End Date Héctor Roman MD [id number] [place] [address] [email or web address] PCP - General Family Medicine 03/17/18
--- OUTSIDE RECORDS SUMMARY | 2025-04-06 09:49 | XMS_ITS ---
Author Organization [facility] Address [address] [facility] [place] [address] Care Team Providers Care Cyber Engineer Name Role Phone Héctor Roman MD Primary Care Provider [phone] Active Problems Patient Care Coordination No te Formatting of this note migh t be different from the original. 12/01/23 Pt has a LBBP lead (MDT 7901) Jairo Isidro RN 3:44 PM, 12/01/2023 Problem [...] 02/02/2024 Assessment & Plan (06/01/2024 8:39 AM BALL WINDER): Chronic, continue midodrine 10mg daily. Assessment & Plan (06/01/2024 4:31 AM BALL WINDER): Chronic, continue midodrine 10mg daily. Assessment & [...] Future Assessment & Plan (06/01/2024 8:39 AM BALL WINDER): Stable and Chronic. Ejection fraction 55-60% in [...] depletion) Assessment & Plan (06/01/2024 4:31 AM BALL WINDER): Stable and Chronic. Ejection fraction 55-60% in [...] 03/23/2023 Assessment & Plan (06/01/2024 8:39 AM BALL WINDER): Improving and Acute. Suspected etiology prerenal due [...] CVP<12) Assessment & Plan (06/01/2024 4:31 AM BALL WINDER): Improving and Acute. Suspected etiology prerenal due [...] May need three-step test prior to discharge [place] [facility] protocol Assessment & Plan (02/05/2024 2:52 PM CDT): Patient noted to be on 1 to 2 L intermittently at home, using oxygen as needed. Patient on 2 L of oxygen continuous while inpatient. Will continue to monitor oxygen requirements May need three-step test prior to discharge [place] [facility] protocol Assessment & Plan (02/04/2024 1:24 PM CDT): Patient noted to be on 1 to 2 L intermittently at home, using oxygen as needed. Patient on 2 L of oxygen continuous while inpatient. Will continue to monitor oxygen requirements May need three-step test prior to discharge [place] protocol Assessment & Plan (02/03/2024 12:06 PM CDT): Patient noted to be on 1 to 2 L intermittently at home, using oxygen as needed. Patient on 2 L of oxygen continuous while inpatient. Will continue to monitor oxygen requirements May need three-step test prior to discharge [place] protocol Assessment & Plan (02/02/2024 10:58 AM CDT): Patient noted to be on 1 to 2 L intermittently at home, using oxygen as needed. Patient on 2 L of oxygen continuous while inpatient. Plan Will continue to monitor oxygen requirements May need three-step test prior to discharge [place] protocol Pulmonary edema 03/16/2019 History of small bowel obstruction 11/13/2018 DNR (do not resuscitate) 08/01/2018 Chronic respiratory failure with hypoxia, on home oxygen therapy 08/01/2018 Acute on chronic diastolic congestive heart fail ure 04/10/2018 Umbilical hernia without obstruction and without gangrene 03/12/2018 Hyperlipidemia 12/18/2017 Assessment & Plan (06/01/2024 8:39 AM BALL WINDER): Chronic. Continue Assessment & Plan (06/01/2024 4:31 AM BALL WINDER): Chronic. Continue Assessment & Plan (02/06/2024 2:38 [...] Currently on metoprolol 25 mg twice daily. [id number] of 6, is on low-dose Eliquis due [...] Chris Assessment & Plan (06/01/2024 8:39 AM BALL WINDER): Stable and Chronic. On Eliquis. Heart rate 89-108 bpm since yesterday, most recent 91. Monitor heart rate with routine vital signs & continuous telemetry Anticoagulation: apixaban (Eliquis) Rate/rhythm control: amiodarone Assessment & Plan (06/01/2024 4:31 AM BALL WINDER): Stable and Chronic. On Eliquis. Heart rate 89-108 bpm since yesterday, most recent 99. Monitor heart rate with routine vital signs & continuous telemetry Anticoagulation: apixaban (Eliquis) Rate/rhythm control: amiodarone Assessment & Plan (02/06/2024 2:38 PM CDT): Underwent successful DCCV to sinus rhythm 02/04. Non-valvular with [id number]: 6 = 9.7% unadjusted ischemic stroke rate [...] DCCV to sinus rhythm 02/04. Non-valvular with [id number]: 6 = 9.7% unadjusted ischemic stroke rate [...] has poor rate control 02/03. Non-valvular with [id number]: 6 = 9.7% unadjusted ischemic stroke rate [...] into atypical flutter evening 02/01. Non-valvular with [id number]: 6 = 9.7% unadjusted ischemic stroke rate (per year) and HAS-BLED: 4 = 8.70 bleeds per 100 patient years. Heart rate 90-135 bpm since yesterday, most recent 118. Monitor heart rate with routine vital signs Anticoagulation: apixaban (Eliquis) Rate/rhythm control: metoprolol and amiodarone (started 02/02 per EP recs) Assessment & Plan (02/02/2024 10:58 AM CDT): Resolved. Non-valvular with [id number]: 6 = 9.7% unadjusted ischemic stroke rate [...] 01/18/2017 Assessment & Plan (06/01/2024 8:39 AM BALL WINDER): Chronic. She is on Adempas and Uptravi. She declines these medications this evening as they are very cost prohibitive for her in the hospital. Will hold the medications for now and touch base with pharmacy. Pharmacy called twice on 06/01. Will continue to call. Assessment & Plan (06/01/2024 4:31 AM BALL WINDER): Chronic. She is on Adempas and Uptravi. [...] HF as an outpatient. Plan Continue home Adempas, Selexipag, Jardiance. Patient does [...] disease) Assessment & Plan (06/01/2024 8:39 AM BALL WINDER): Improving and Chronic. S/p recent exacerbation. Finishing prednisone and azithromycin on 06/02. SpO2 92 % . Monitor on pulse oximetry Provide supplemental oxygen as needed to maintain SpO2 88-92% Inhaled medication and bronchial hygiene per Respiratory Therapy Systemic corticosteroid: prednisone for acute exacerbation through June 02 Antibiotic: azithromycin through June 02 Assessment & Plan (06/01/2024 4:31 AM BALL WINDER): Improving and Chronic. S/p recent exacerbation. Finishing [...] (07/18/2011): Assessment & Plan (06/01/2024 8:39 AM BALL WINDER): Chronic, stable. Continue pantoprazole. Assessment & Plan (06/01/2024 4:31 AM BALL WINDER): Chronic, stable. Continue pantoprazole. Current Treatment and Therapy Plans No current plan information found. Other Current Plans DENOSUMAB (PROLIA)* Plan Start Date:09/20/2019 Plan Provider:Héctor Roman MD Linked Problems Age-related osteoporosis wit hout current pathological fracture Treatment Medications denosumab (PROLIA) Past Treatment and Therapy Plans Lifetime Dose Tracking * Chemical Lifetime Dose Automatic Entry Manual Entr y Fluoro Time 5.8 minutes 5.8 minutes 0 minutes Treatment Summaries Breast CA (HCC)* Images from the original note were not included. 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 S/p lumpectomy and adjuvant treatment with aromatase inhibitor anastrazole for 7 years, discontinued in mid 2022. 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 Did not undergo any surgery given comorbidities. Genetics: Genetic/Hereditary Risk Factors or Predisposing Condition: Family History Problem Relation Age of Onset Breast cancer Mother 60 two primaries, bilateral mastectomy, ages 60 & 66 Lung cancer Father 70 Malignant neoplasm of gallbladder Maternal Aunt 65 Bone cancer Maternal Uncle Lung cancer Paternal Uncle Breast cancer Maternal Grandmother 68 Breast cancer Paternal Grandmother 40 Breast cancer Paternal Grandfather 70 Cancer of mouth Maternal Cousin Ovarian cancer Neg Hx Genetic Testing: Completed Breast9 panel 09/2015 Lab Used: [facility] Laboratory Results: Negative Treatment Summary Chemotherapy: Did not receive Surgery: Date: 11/26/2015 Procedure: Right Breast Lumpectomy Pathology: No residual invasive carcinoma seen. Radiation: Did not receive Endocrine Anastrozole for 7 years from [id number] after diagnosis of right breast IDC. Testing / Follow Up Care: Testing: Follow Up Recommendations: Last Perfomed Mammogram: Bilateral mammograms every year, currently shorter interval screening on left breast perRadiology/Dr. 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 Walking more and sitting less is a great way to reduce cancer risk. The more active you are, the greater the benefit. Keep your weight within the healthy range and avoid weight gain in adult life. The evidence linkingbody fatness to cancer is overwhelming and has grown stronger over the past decade Make whole grains, vegetables, fruits and pulses (legumes) such as beans and lentils a major part of your normal diet. A healthy pattern of eating and drinking is associated with a lower risk of cancer. Try to limit ???fast foods?? , red and processed meats, and sugar-sweetened drinks. Limit alcohol consumption. For cancer prevention, it is best not to drink alcohol. There is strong evidence that drinking alcohol is a cause of six cancers, and even one small glass of alcohol a day can increase the risk of some cancers Avoid smoking and other exposures to tobacco and excess sun which are also important in reducing cancer risk. General Population Cancer Screening Guidelines (if you have a family history of cancer, your recommendations may change): Cervical Cancer Screening: Starting at age 25 and through age 65, all people with a cervix should have a primary HPV test* every 5 years. If a primary HPV test is not available in your area, then acceptable options include a co-test (an HPV test done at the same time as a Pap test) every 5 years ora Pap test alone every 3 years. The most important thing to remember is to get screened regularly, no matter which test you get. Colon Cancer Screening: All people at average risk should start testing at age 45. There are several testing options including FIT testing and colonoscopy screening. Talk with a health care provider about which tests are best for you and how often testing should be done. Lung Cancer Screening: If you are age 50 or older, talk to a health care provider about your smoking history and whether you should get yearly low-dose CT scans to screen for early lung cancer. Screening may benefit you if you smoke now or if you quit within the past 15 years, have no signs of lungcancer, and have a 20 pack-year smoking history. (A pack-year is 1 pack of cigarettes per day per year. One pack per day for 20 years or 2 packs per day for 10 years would both be 20 pack-years.) Vaccinations for Cancer Survivors: Stay up to date on latest COVID vaccine guidelines per CDC Influenza: Annually in the fall TDAP Booster: Every 10 years Pneumococcal (PCV20 OR PCV15 followed by PPSV23): Age 65 and older or less than age 65 if at high risk for pneumococcal disease Shingles vaccine - 2 dose series (Shingrix): Recommended at age 50 RSV (Arexvy) vaccine: Recommended at age 60 Cardiovascular (Heart) Health for Cancer Survivors: Adult survivors of cancer have a higher risk of heart failure and other cardiovascular diseases (CVD) later in life than adults without cancer Follow up with your primary care provider once a year to screen and manage cardiac risk factors such as blood pressure, cholesterol, diabetes, and weight. Resources: Survivorship website at [email or web address] for full list of resources Survivorship Program Contact Information: [phone] Resolved Problems Problem Noted Date Diagnosed Date [...]
--- OUTSIDE RECORDS SUMMARY | 2025-04-06 09:49 | XMS_ITS | Patient Health Record ---
Author Organization [facility] Address [address] [place] [address] Support Name Relationship Address Phone FUENTES, SHANI Guarantor Unknown [phone] Reason For Referral No Information Medications Medication SIG (Take, Route, Frequency, Duration) Notes Start Date End Date Status Alphagan P *Pick strength-f orm from Medispan for eRX* Active Albuterol Sulfate *Pick strength -form from Medispan for eRX* Active Advair Diskus *Pick strength-f orm from Medispan for eRX* Active Xarelto *Pick strength-f orm from Medispan for eRX* Active Propafenone *Reorder from Med[facility]pan for eRx and Interaction Alerts* Active Prolia *Pick strength-f orm from Medispan for eRX* Active Refresh Tears *Pick strength-f orm from Medispan for eRX* Active Promethazine-Codeine 6.25-10 MG/5ML Syrup Oral Active Potassium Chloride *Pick strengt h-form from Medispan for eRX* Active Ondansetron HCl *Pick strength-f orm from Medispan for eRX* Active Hydralazine *Reorder from Medispan for eRx and Interaction Alerts* Active Ipratropium-Albuterol *Pick stre ngth-form from Medispan for eRX* Active Amiodarone *Reorder from Medispan for eRx and Interaction Alerts* Active Torsemide *Pick strength-f orm from Medispan for eRX* Active Simvastatin *Pick strength-f orm from Medispan for eRX* Active Restasis *Pick strength-f orm from Medispan for eRX* Active Spiriva with HandiHaler *Reorder from Medispan for eRx and Interaction Alerts* 10/12/2017 Active Montelukast Sodium 10 MG Tablet Oral 11/14/2017 Active Metoprolol Tartrate *Pick streng th-form from Medispan for eRX* 07/20/2017 Active Lumigan *Pick strength-f orm from Medispan for eRX* 06/02/2017 Active losartan *Reorder from Medispan for eRx and Interaction Alerts* 02/21/2017 Active Culturelle *Pick strength-f orm from Medispan for eRX* Active Uptravi *Pick strength-f orm from Medispan for eRX* Active Benadryl Allergy 25 MG Tablet Oral Active Entresto *Pick strength-f orm from Medispan for eRX* Active Anastrozole *Pick strength-f orm from Medispan for eRX* 01/13/2017 Active Jardiance *Pick strength-f orm from Medispan for eRX* Active Adempas *Pick strength-f orm from Medispan for eRX* 08/01/2017 Active Lactobacillus rhamnosus GG *Reorder from Medispan for eRx and Interaction Alerts* Active Gabapentin *Pick strength-f orm from Medispan for eRX* Active clobetasol *Reorder from Medispan for eRx and Interaction Alerts* Active Fioricet oral *Pick strength-f orm from Medispan for eRX* 03/08/2022 Active Calcium 600 + D(3) *Reorder from Medispan for eRx and Interaction Alerts* Active Excedrin Migraine *Pick strength -form from Medispan for eRX* Active Acetaminophen Pain Relief *Reorder from Medispan for eRx and Interaction Alerts* Active Eliquis *Pick strength-f orm from Medispan for eRX* Active Immunizations Vaccine Route Administration Date Status Comme nts Influenza (split), 3 yrs and above Unknown 01/29/2018 A dministered Influenza virus vaccine, quadrivalent, live (LAIV4), for intranasal use Unknown 01/31/2020 Administered Influenza virus vaccine, quadrivalent, live (LAIV4), for intranasal use Unknown 02/13/2021 Administered Influenza, high dose seasonal Unknown 03/03/2011 Admini stered Influenza, high dose seasonal Unknown 01/28/2013 Admini stered Influenza, high dose seasonal Unknown 01/09/2014 Admini stered Influenza, high dose seasonal Unknown 02/20/2017 Admini stered Influenza, high dose seasonal Unknown 02/07/2018 Admini stered Influenza, high dose seasonal Unknown 02/21/2019 Admini stered Influenza, high-dose seasona l, quadrivalent, preservative free >65 yrs Unknown 01/17/2022 Administered Influenza, seasonal, injecta ble, preservative free, 3 yrs and above Unknown 01/11/2012 Administered Moderna Covid-19 Vaccine 1st dose Unknown 06/03/2020 Ad ministered Moderna Covid-19 Vaccine 1st dose Unknown 07/01/2020 Ad ministered Moderna Covid-19 Vaccine 1st dose Unknown 02/21/2021 Ad ministered Moderna Covid-19 Vaccine 1st dose Unknown 08/06/2021 Ad ministered Moderna Covid-19 Vaccine 1st dose Unknown 01/17/2022 Ad ministered Pneumococcal conjugate PCV 13 Unknown 01/10/2015 Admini stered Pneumococcal polysaccharide PPV23 Unknown 04/10/2012 Ad ministered Pneumococcal polysaccharide PPV23 Unknown 05/01/2017 Ad ministered Pneumococcal polysaccharide PPV23 Unknown 08/09/2017 Ad ministered Tdap Unknown 04/10/2012 Administered Zoster Unknown 05/01/2007 Administered Social History Social History Additional Details Category Social Info Options Details Migrated Social History Migrated Social History Health-related behavior : Caffeine Use ST , Health-related behavior : Marital Status: ST , Alcohol intake : rare alcohol use ST , Smoking Status : smoking status - Never smoker , Alcohol intake : social alcohol use ST , Details of drug misuse behavior : denies Illegal Drug Use ST Problems Problem Type SNOMED Code ICD Code Onset Dates Problem Status W/U Status Risk Notes Problem Impacted cerumen (98141084) Impacted cerumen, right ear (H61.21) 9 Active confirmed Problem Impacted cerumen (89021525) Impacted cerumen, left ear (H61.22) 9 Active confirmed Problem Impacted cerumen (28743371) Impacted cerumen, bilateral (H61.23) 9 Active confirmed Problem Eustachian tube disorder (64255285) Other specified disorders of Eustachian tube, unspecified ear (H69.80) 3 Active confirmed Problem Allergic rhinitis (03213311) Allergic rhinitis, unspecified (J30.9) 9 Active confirmed Problem Chronic sinusitis (00002141) Chronic sinusitis, unspecified (J32.9) 8 Active confirmed Problem Disorder of nasal sinus (disorder) (6475829) Other specified disorders of nose and nasal sinuses (J34.89) 3 Active confirmed Problem Chronic obstructive pulmonary disease (47284241) Chronic obstructive pulmonary disease, unspecified (J44.9) 9 Active confirmed Problem Cough (69783821) Cough (R05) 9 Active confirmed Problem Postnasal drip (89823826) Postnasal drip (R09.82) 1 Active confirmed Problem Headache (00707635) Headache (R51) 9 Active confirmed Problem Symptom: generalized (279895966) Other general symptoms and signs (R68.89) 9 Active confirmed Problem Allergy (051270739) Allergy, unspecified, initial encounter (T78.40XA) 3 Active confirmed Problem Headache (82622676) Headache, unspecified (R51.9) 1 Active confirmed Problem BMI 25-29 - overweight (659855309) Body mass index (BMI) 25.0-25.9, adult (Z68.25) 2 Active confirmed Problem Disorder of right ear (disorder) (17548854178536 01) Other specified disorders of right ear (H93.8X1) 9 Problem resolved confirmed Problem Body mass index 25-29 - overweight (578065783) Body mass index (BMI) 27.0-27.9, adult (Z68.27) 9 Problem resolved confirmed Problem Normal body mass index (82375686) Body mass index (BMI) 24.0-24.9, adult (Z68.24) 1 Problem resolved confirmed Problem Body mass index 30+ - obesity (247429358) Body mass index (BMI) 30.0-30.9, adult (Z68.30) 9 Problem resolved confirmed Problem BMI 25-29 - overweight (199319638) Body mass index (BMI) 29.0-29.9, adult (Z68.29) 8 Problem resolved confirmed Plan Of Treatment No Information Insurance Providers Payer Name Payer Address Payer Phone Subscriber Number Group Number Insured Name Patient Relationship to Insured Coverage Start Date Coverage End Date Medicare Part B [place] [address] [place] [address] [id number] SHANI FUENTES Self - patient is the insured 8 9 For Life Sup [address] [place] [address] [id number] SHANI FUENTES Self - patient is the insured 2 9
--- OUTSIDE RECORDS SUMMARY | 2025-04-06 09:49 | XMS_ITS | Encounter Summary ---
Author Organization [facility] Address [address] [place] [address] Care Team Providers Care Educational Technology Coordinator Name Role Phone Héctor Roman MD Primary Care Provider [phone] Encounter Details Date Type Department Care Team (Late st Contact Info) Description 06/20/2017 Education Clinical Nutrition [address] [place] [address] [place] [address], LM[place] [address] [email or web address] Social History Tobacco Use Types Packs/Day Years Used Date Smoking Tobacco: Never Smokeless Tobacco: Never Alcohol Use Standard Drinks/Week Comments Yes 0.8 (1 standard drink = 0.6 oz p ure alcohol) Comments No Sex and Gender Information Value Date Recorded Sex Assigned at Female 10/08/2024 2:02 PM CDT Legal Sex Female 5:42 AM TRANSIT CLERK Gender Identity Female 10/08/2024 2:02 PM CDT Sexual Orientation Straight 07/17/2018 5: 07 PM CDT Occupation Industry Job Start Date Job End Date retired Not on file Not on file Not on file documented as of this encounter Functional Status * Are you deaf or have difficulty hearing? Answer Date of Assessment Author No 04/23/2017 11:27 AM Mary Talley RN * Are you blind or have difficulty seeing, even when wearing glasses? Answer Date of Assessment Author No 04/23/2017 11:27 AM Mary Talley RN * Do you have difficulty walking or climbing stairs? Answer Date of Assessment Author Yes 04/23/2017 11:27 AM Mary Talley, NORMAN * Do you have difficulty dressing or bathing? Answer Date of Assessment Author No 04/23/2017 11:27 AM Mary Talley RN * Do you have difficulty doing errands alone such as visiting a doctor's office or shopping? Answer Date of Assessment Author No 04/23/2017 11:27 AM Mary Talley RN documented as of this encounter Mental Status * Do you have difficulty concentrating, remembering, or making decisions? Answer Entry Date Author No 04/23/2017 11:27 AM Mary Talley RN documented in this encounter Plan of Treatment Upcoming Encounters Date Type Department Care Team (Late st Contact Info) Description 04/14/2025 12:20 PM TRANSIT CLERK Appointment [facility] [address] [place] [address] [place] [phone] 04/18/2025 11:15 AM TRANSIT CLERK Appointment [facility] at [address] [place] [address] 06/25/2025 7:45 AM TRANSIT CLERK Clinical Support [facility] [address], [address] [place] [address] 08/19/2025 1:30 PM CDT Office Visit Pulmonary at [facility] [address] [facility], 5th [place] [phone] [place] [address] [place] [address] [email or web address] 08/27/2025 12:50 PM CDT Clinical Support [facility] [address] [facility], 2nd [place] [address] 08/27/2025 1:00 PM CDT Office Visit [facility] [address] [facility] 2nd [place] [phone] Yosi Marshall MD [address] [phone] [email or web address] 09/08/2025 11:00 AM CDT Office Visit [address] [place] [phone] Constantine Reardon MD [address] [facility] [address] [place] [address] [email or web address] 12/23/2025 11:00 AM CDT Appointment [facility] [address] [place] [address] [place] [phone] 12/23/2025 11:30 AM CDT Office Visit [facility] [address] [phone] Antonella Herrmann PA-C [address] [place] [address] [place] [phone] [email or web address] documented as of this encounter Goals Goal Patient Goal Type Associated Problems Recent Progress Patient-Stated? Author Lifestyle < 130/80 Lifestyle 124/79(2024 9:43 AM TRANSIT CLERK) Rosalina Altamirano, RN Note: Patient progress: Initiated documented as of this encounter Visit Diagnoses Not on filedocumented in this encounter Additional Health Concerns Infection Onset Date Last Indicated Resolved Time Rule Out COVID-19 06/16/2021 06/16/2021 06/16/2021 2:16 PM TRANSIT CLERK Rule Out COVID-19 04/08/2023 04/08/2023 04/08/2023 5:16 PM TRANSIT CLERK Rule Out COVID-19 11/07/2023 11/07/2023 11/07/2023 7:43 AM CDT Rule Out COVID-19 04/25/2024 04/25/2024 04/25/2024 7:57 AM TRANSIT CLERK Rule Out COVID-19 05/10/2024 05/10/2024 05/10/2024 11:57 AM TRANSIT CLERK COVID-19 05/10/2024 05/10/2024 05/30/2024 8:54 PM TRANSIT CLERK documented as of this encounter Care Teams Educational Technology Coordinator Relationship Specialty Start Date End Date Héctor Roman MD [facility] [address] [place] [address] [email or web address] PCP - General Family Medicine 03/17/18 documented as of this encounter
--- OUTSIDE RECORDS SUMMARY | 2025-04-06 09:49 | XMS_ITS | Clinical Summary ---
Author Organization [facility] Address [address] [place] [address] Care Team Providers Care Biztalk Architect Name Role Phone Unavailable Primary Care Provider Unavailabl e Social History Tobacco Use Types Packs/Day Years Used Date Smoking Tobacco: Never Assessed Comments Unknown Sex and Gender Information Value Date Recorded Sex Assigned at Not on file Legal Sex Female 8:29 PM CDT Gender Identity Not on file Sexual Orientation Not on file Plan of Treatment Health Maintenance Due Date Last Done Comments DTaP, Tdap and Td Vaccines ( 1 - Tdap) 01/21/1954 Pneumococcal Vaccine: 50+ Ye ars (1 of 1 - PCV) 1987 Zoster Vaccines (1 of 2) 1987 RSV Immunization or 60+ Years (1 - 1-dose 75+ series) 01/21/2012 COVID-19 Vaccine ( - 2024-2 6 season) 2024 Influenza Adult (#1) 2025 Hepatitis A Vaccines Aged Out No long er eligible based on patient's age to complete this topic Meningococcal B Vaccine Aged Out No l onger eligible based on patient's age to complete this topic Meningococcal Vaccine Aged Out No sae clark eligible based on patient's age to complete this topic RSV Immunizations Under 20 Months Aged Out No longer eligible based on patient's age to complete this topic
[2025-04-06 09:56] LABS: Alveolar/Arterial O2 Gradient 160.2 mmHg; Carboxyhemoglobin 0.9 % THb (0-2.0); Fractional Inspired Oxygen 36 %; HCO3 ABG 18.3 mEq/l (22.0-26.0); Methemoglobin ABG 0.2 %THb (0-1.5); Oxygen Content ABG 16.8 %vol (16.0-22.0); Oxygen Saturation ABG 91.9 % (95.0-100.0); PCO2 ABG 30.3 mmHg (35.0-45.0); PO2 ABG 61.3 mmHg (80.0-100.0); PO2 FiO2 Ratio Arterial Blood 1.70 %; Reduced Hemoglobin 9.1 %THb (0-5.0)
[2025-04-06 09:57] LABS: Liters per Minute 4.0 LPM; Modified Allen's Test Pass; Site Drawn RIGHT RADIAL
[2025-04-06 09:58] LABS: Alanine Aminotransferase 15 U/L (6-35); Albumin Level 4.1 g/dL (3.5-5.1); Alkaline Phosphatase 56 U/L (38-126); Anion Gap 9 mmol/L (4-12); Aspartate Amino Transferase 27 U/L (14-36); Bilirubin,Total 0.8 mg/dL (0.2-1.3); Blood Urea Nitrogen 17 mg/dL (7-17); Calcium 10.1 mg/dL (8.4-10.2); Carbon Dioxide 20 mmol/L (22-30); Chloride 109 mmol/L (98-107); Estimated CRCL calculation 23 ml/min; Estimated Glomerular Filt Rate 47; Glucose 115 mg/dL (65-110); Potassium 4.1 mmol/L (3.4-5.0); Sodium 138 mmol/L (137-145); Total Protein 7.1 g/dL (6.3-8.2)
[2025-04-06 10:01] LABS: NT Pro B Type Natriuretic Pept 8130 pg/mL (19.9-100)
[2025-04-06] MEDS: FUROSEMIDE INJ 40 MG/4 ML VIAL IV PUSH (10:32)
--- NOTE | 2025-04-06 11:26 | WPCEDHO ---
ED Hand Off Checklist All vitals saved: YES IV Site documented: YES All med administrations documented: YES Triage Note Triage Note Pt to ED from home via EMS co SOB 04/06/25 09:02 for a few days. PT has hx COPD & Afib. PT states she used a breathing tx yesterday reports she had some relief with it. Pt A &Ox4. Pt states she uses O2 PRN and at night. EMS gave duo neb and placed pt on 4L O2 reporting her O2 on room air was 80%. Pt denies palpitations & denies cp Allergies nitrofurantoin Allergy (Mild, Verified 04/06/25 09:27) Unknown Penicillins Allergy (Mild, Verified 04/06/25 09:27) Unknown Sulfa (Sulfonamide Antibiotics) Allergy (Mild, Verified 04/06/25 09:27) Unknown Active Medications including assessments/comments Diltiazem HCl (Cardizem 100 Mg/100 Ml) 100 mg in 100 mls @ 15 mls/hr IV CONT .Q6H40M STA; Protocol Stop: 04/06/25 16:14 Last Titration: 04/06/25 11:20 Dose: 15 mg/hr, 15 mls/hr Documented By: KED Infusion/Titration Document 04/06/25 11:20 KED (Rec: 04/06/25 11:22 KED [id number]) Intake Intake 3.1 Cumulative Intake ( 13.9 bag) Cumulative Intake ( 13.9 Rx) Container Volume 86.1 Waste Amount 0 Dosing Dose Rate 15 Infusion Rate 15 Cumulative Dose 13.9 Increase/Decrease Increased Elapsed Time Elapsed Time ( 1h 38m minutes) Diltiazem Infusion Assessment Document 04/06/25 11:20 KED (Rec: 04/06/25 11:22 KED [id number]) Infusion Action Diltiazem Infusion Titrated/Rate Changed Action Pulse Pulse Rate (60-100 120 H beats/min) Blood Pressure Blood Pressure (100/ 118/88 60-140/90 mmHg) Blood Pressure Mean 98 (mmHg) Titration: 04/06/25 11:05 Dose: 12.5 mg/hr, 12.5 mls/hr Documented By: KED Infusion/Titration Document 04/06/25 11:05 KED (Rec: 04/06/25 11:06 KED [id number]) Intake Intake 5.8 Cumulative Intake ( 10.8 bag) Cumulative Intake ( 10.8 Rx) Container Volume 89.2 Waste Amount 0 Dosing Dose Rate 12.5 Infusion Rate 12.5 Cumulative Dose 10.8 Increase/Decrease Increased Elapsed Time Elapsed Time ( 1h 23m minutes) Diltiazem Infusion Assessment Document 04/06/25 11:05 KED (Rec: 04/06/25 11:06 KED [id number]) Infusion Action Diltiazem Infusion Titrated/Rate Changed Action Pulse Pulse Rate (60-100 129 H beats/min) Blood Pressure Blood Pressure (100/ 120/86 60-140/90 mmHg) Blood Pressure Mean 97 (mmHg) Titration: 04/06/25 10:30 Dose: 10 mg/hr, 10 mls/hr Documented By: BJ Infusion/Titration Document 04/06/25 10:30 KED (Rec: 04/06/25 10:31 KED [id number]) Intake Intake 2.8 Cumulative Intake ( 5 bag) Cumulative Intake ( 5 Rx) Container Volume 95 Waste Amount 0 Dosing Dose Rate 10 Infusion Rate 10 Cumulative Dose 5 Increase/Decrease Increased Elapsed Time Elapsed Time ( 48m minutes) Diltiazem Infusion Assessment Document 04/06/25 10:30 KED (Rec: 04/06/25 10:31 KED [id number]) Infusion Action Diltiazem Infusion Titrated/Rate Changed Action Pulse Pulse Rate (60-100 144 H beats/min) Blood Pressure Blood Pressure (100/ 124/95 H 60-140/90 mmHg) Blood Pressure Mean 104 (mmHg) Titration: 04/06/25 10:08 Dose: 7.5 mg/hr, 7.5 mls/hr Documented By: EDISOND Infusion/Titration Document 04/06/25 10:08 KED (Rec: 04/06/25 10:11 KED [id number]) Intake Intake 2.2 Cumulative Intake ( 2.2 bag) Cumulative Intake ( 2.2 Rx) Container Volume 97.8 Waste Amount 0 Dosing Dose Rate 7.5 Infusion Rate 7.5 Cumulative Dose 2.2 Increase/Decrease Increased Elapsed Time Elapsed Time ( 26m minutes) Diltiazem Infusion Assessment Document 04/06/25 10:08 KED (Rec: 04/06/25 10:11 KED [id number]) Infusion Action Diltiazem Infusion Titrated/Rate Changed Action Pulse Pulse Rate (60-100 135 H beats/min) Blood Pressure Blood Pressure (100/ 128/87 60-140/90 mmHg) Blood Pressure Mean 100 (mmHg) Admin: 04/06/25 09:42 Dose: 5 mg/hr, 5 mls/hr Documented By: BJ Infusion/Titration Document 04/06/25 09:42 BJ (Rec: 04/06/25 09:42 BJ [id number]) Intake IV Site Peripheral Access Left Forearm Container Volume 100 Waste Amount 0 Dosing Dose Rate 5 Infusion Rate 5 Increase/Decrease Started Elapsed Time Elapsed Time ( 0m minutes) Diltiazem Infusion Assessment Document 04/06/25 09:42 BJ (Rec: 04/06/25 09:42 BJ [id number]) Infusion Action Diltiazem Infusion Initiated Action Pulse Pulse Rate (60-100 142 H beats/min) Blood Pressure Blood Pressure (100/ 115/90 60-140/90 mmHg) Blood Pressure Mean 98 (mmHg) Administered/Completed Medications Discontinued Medications Diltiazem HCl (Diltiazem Hcl Inj 25 Mg/5 Ml Vial) 10 mg IV PUSH ONCE STA Stop: 04/06/25 09:28 Last Admin: 04/06/25 09:31 Dose: 10 mg Documented By: BJ Diltiazem HCl (Diltiazem Hcl Inj 25 Mg/5 Ml Vial) 10 mg IV PUSH ONCE STA Stop: 04/06/25 09:36 Last Admin: 04/06/25 09:37 Dose: Not Given Documented By: BJ Non-Admin Reason: Duplicate Dose Furosemide (Furosemide Inj 40 Mg/4 Ml Vial) 40 mg IV PUSH ONCE STA Stop: 04/06/25 10:30 Last Admin: 04/06/25 10:32 Dose: 40 mg Documented By: BJ Lactated Ringer's (Lr - Lactated Ringers Iv) 1,000 mls @ 999 mls/hr IV CONT .Q1H1M STA Stop: 04/06/25 09:51 Last Infusion: 04/06/25 11:10 Dose: Infused Documented By: Admin: 04/06/25 09:12 Dose: 999 mls/hr Documented By: BJ Metoprolol Tartrate (Metoprolol Tartrate Inj 5 Mg/5 Ml Vial) 5 mg IV PUSH ONCE STA Stop: 04/06/25 08:52 Last Admin: 12/07/25 09:07 Dose: 5 mg Documented By: BJ Interventions/Assessments Cardiac Monitoring Start: 04/06/25 08:25 Freq: Status: Active Protocol: Document 04/06/25 09:12 BJ (Rec: 04/06/25 09:26 KESofya [id number]) Training And Development Head Assessment Training And Development Head Yes Applied Pulse Rate (60-100 138 H beats/min) EKG Rythm Atrial Fibrillation IV / Saline Lock, Insert Start: 04/06/25 08:40 Freq: STAT Status: Active Protocol: Document 04/06/25 09:26 BJ (Rec: 04/06/25 09:27 BJ [id number]) IV Assessment Peripheral Access Left Forearm IV Catheter Access Initiated IV Insertion Date 04/06/25 IV Insertion Time 09:27 Catheter Gauge 20 IV Insertion 1 Attempts Ultrasound Used for No Placement IV Site Assessment WNL IV Care and WNL Maintenance PA: Cardiovascular Assessment Start: 04/06/25 08:25 Freq: Status: Active Protocol: Document 04/06/25 09:12 BJ (Rec: 04/06/25 09:26 BJ [id number]) Cardiovascular Assessment Cardiovascular Dyspnea Symptoms PA: Respiratory Assessment Start: 04/06/25 08:25 Freq: Status: Active Protocol: Document 04/06/25 09:12 BJ (Rec: 04/06/25 09:26 BJ [id number]) Oxygen Delivery Oxygen Delivery Nasal Cannula Oxygen Flow Rate (L/ 4 min) Pulse Oximetry (90- 95 100 %) Respiratory Assessment Symptoms Cough,Shortness of Breath at Rest,Shortness of Breath With Exertion Effort Normal,Short of Breath Pattern Tachypnea Depth Normal Chest Expansion Symmetrical Adult Capillary Normal/Less than 2 Seconds Refill Posterior Bilateral Throughout Phase Expiratory Lung Sounds Diminished,Wheezes Cough Description Ineffective,Productive Cough Frequency Intermittent Sputum Production/ Spontaneous Expectoration Suction Method Sputum Amount Small Sputum Color Clear Last Vital Signs Temperature 98.7 F 04/06/25 11:19 Pulse Rate 120 H 04/06/25 11:20 Respiratory Rate 24 H 04/06/25 11:19 Pulse Oximetry 93 04/06/25 11:19 Blood Pressure 118/88 04/06/25 11:20 Blood Pressure Mean 98 04/06/25 11:20 Oxygen Delivery BiPAP 04/06/25 09:55 Oxygen Flow Rate 4 04/06/25 09:12 Weight 55.9 kg 04/06/25 09:02 Last Result - Abnormals Only MCHC 31.8 g/dl (32-36) L 04/06/25 09:23 RDW 16.4 % (11.5-14.5) H 04/06/25 09:23 MPV 10.6 fl (7.4-10.4) H 04/06/25 09:23 Neut % (Auto) 87.4 % (45.5-73.1) H 04/06/25 09:23 Lymph % (Auto) 6.2 % (18.3-44.2) L 04/06/25 09:23 Lymph # (Auto) 0.57 K/mm3 (0.9-3.2) L 04/06/25 09:23 Absolute Neuts (auto) 8.0 K/mm3 (1.3-6.7) H 04/06/25 09:23 ABG pCO2 30.3 mmHg (35.0-45.0) L 04/06/25 09:52 ABG pO2 61.3 mmHg (80.0-100.0) L 04/06/25 09:52 ABG HCO3 18.3 mEq/l (22.0-26.0) L 04/06/25 09:52 ABG O2 Saturation 91.9 % (95.0-100.0) L 04/06/25 09:52 Oxyhemoglobin 89.8 % THb (90.0-100.0) L 04/06/25 09:52 Reduced Hemoglobin 9.1 %THb (0-5.0) H 04/06/25 09:52 Chloride 109 mmol/L (98-107) H 04/06/25 09:23 Carbon Dioxide 20 mmol/L (22-30) L 04/06/25 09:23 Creatinine 1.09 mg/dL (0.7-1.0) H 04/06/25 09:23 Estimated GFR 47 (59-) L 04/06/25 09:23 Glucose 115 mg/dL (65-110) H 04/06/25 09:23 NT-Pro-B Natriuret Pep 8130 pg/mL (19.9-100) H 04/06/25 09:23 Most Recent Suicide Severity Rating Suicide Severity Rating NO RISK INDICATED 04/06/25 09:02
--- NOTE | 2025-04-06 12:51 | ADMGEN ---
This patient, Jade Alaniz, was admitted to IMU Room 202-01. Patient/family oriented to hospital policies and general routines including ID bracelet, bed and alarms, visiting hours, pain management, procedures, bathroom and other care routines, personal items, smoking policy, room service/diet, and visiting hours. Information on how to activate the Rapid Response Team has been discussed. Patient/Family are encouraged to report perceived risks to care and to ask questions if they do not understand what they are told or what they should do. Patient and her at bedside. Admission assessment completed and documented. Patient voiced no complaints or concerns at this time. Call light and personal items in reach. Bed in low and locked position. Bed alarm on. Will continue to monitor. Benjy Velazquez RN.
--- NOTE | 2025-04-06 13:38 | PM.IMHP2 ---
H&P: HPI History of Present Illness Date/Time: 04/06/25 13:38 Chief Complaint: Shortness of Breath Narrative: 89 y/o F with PMH of Afib, COPD, chronic respiratory failure on supplemental O2 p.r.n. and HS, HTN, HLD, RA, and CHF presents here with shortness of breath. The patient presents here from home via EMS on 04/06 for further evaluation of shortness of breath. She reports onset of dyspnea approximately 2 days ago. Shortness of breath has been progressive. She then developed cough, congestion, nausea with dry heaving but no vomiting, chills, and diarrhea yesterday (04/05). She has been utilizing her home breathing treatments with minimal relief. No new symptoms today. Denies chest pain, palpitations, lower extremity swelling, or weight gain. She is on supplemental O2 as needed (typically used when taking the stairs or when taking a shower) and at night as needed - 2L NC. Per EMS, upon arrival the patient was 80% on room air and was subsequently placed on 4L NC and given a DuoNeb. She arrived 94% on 4L. Initial VS at presentation: 98.6? F, HR 141, RR 27, 133/86, and 94% on 4L nasal cannula. ED workup showed: No leukocytosis, no anemia, initial ABG showed a mildly reduced CO2 level, mildly reduced O2 level, with no acidosis/alkalosis, creatinine 1.09 and GFR 47, glucose 115, BNP 8130. EKG showed atrial flutter/tachycardia with RVR, left axis deviation, possible right ventricular conduction delay, delayed precordial R/S transition, borderline ST-T-wave abnormality lateral/high leads. CXR showed interstitial pulmonary edema and or multifocal airspace disease. Review of Systems Review of Systems: All systems reviewed & are unremarkable except as noted in HPI and below [facility] Past Medical History Medical History (Updated 04/06/25 @ 14:09 by Yasmin Castro APRN) HTN (hypertension) hx of, no longer on medications. on Midodrine as of Mar 2025 Anxiety Endometriosis Glaucoma Rheumatoid arthritis History of intestinal obstruction Hemorrhoids GERD (gastroesophageal reflux disease) History of diverticulitis History of pacemaker HLD (hyperlipidemia) DVT (deep venous thrombosis) (~2010) Chronic hypoxic respiratory failure, on home oxygen therapy PRN and HS COPD (chronic obstructive pulmonary disease) Congestive heart failure Atrial fibrillation Surgical History Surgical History History of tubal ligation History of hysterectomy History of section History of tonsillectomy History of cataract extraction History of knee replacement History of bladder surgery bladder sling, 1975 History of appendectomy History of lung surgery (~2010) History of automatic internal cardiac defibrillator (AICD) Family History Family History Mother Cancer Father Cancer Epilepsy Grandparent Cancer Social History Social History Smoking status: Never smoker Second hand tobacco smoke exposure: No Alcohol intake: never Substance use: never Lack of Transportation: No Lack of Food: Never True Current Housing: I Have Housing Concerned About Future Housing: No Difficulty Paying Gas/Electric Bills: No Difficulty Paying for Meds: No Currently Unemployed: No Education: High School Diploma/GED Difficulty w/ Childcare or Family Care: No Spiritual care concerns: No Meds Home Medications and Allergies Home Medications ?Medication ?Instructions ?Recorded ?Confirmed ?Type Lactobacillus rhamnosus GG 10 1 cap PO DAILY 04/06/25 04/06/25 History billion cell capsule (Culturelle) acetaminophen 500 mg tablet 1,000 mg PO Q6H PRN pain 04/06/25 04/06/25 History (Tylenol Extra Strength) albuterol 90 mcg/actuation aerosol mcg inhalation .q4hr 04/06/25 History inhaler apixaban 2.5 mg tablet (Eliquis) 2.5 mg PO BID 04/06/25 04/06/25 History benzonatate 100 mg capsule 100 mg PO PRN 04/06/25 04/06/25 History bimatoprost 0.01 % eye drops 1 drp EACH EYE QHS 04/06/25 04/06/25 History (Lumigan) calcium 500 mg (as 1 tablet PO DAILY 04/06/25 04/06/25 History carbonate)-vitamin D3 10 mcg (400 unit) tablet (Calcium 500 + D) carboxymethylcellulose sodium 0.5 1 drp EACH EYE .q6h prn 04/06/25 04/06/25 History % eye drops (Refresh Tears) codeine 10 mg-guaifenesin 100 mg/5 10 ml PO Q4-6H PRN cough 04/06/25 04/06/25 History mL oral liquid cyclosporine 0.05 % eye drops in a 1 drp EACH EYE QHS 04/06/25 04/06/25 History dropperette denosumab 60 mg/mL subcutaneous 60 mg subcut [id number] 04/06/25 04/06/25 History syringe diclofenac sodium 1 % topical gel 4 g topical PRN 04/06/25 04/06/25 History (Arthritis Pain (diclofenac)) diphenhydramine HCl 25 mg capsule 25 mg PO Q6H PRN allergy symptoms 04/06/25 04/06/25 History (Allergy (diphenhydramine)) empagliflozin 10 mg tablet 10 mg PO DAILY 04/06/25 04/06/25 History (Jardiance) ferrous sulfate 325 mg (65 mg 325 mg PO .COMPLEX 04/06/25 04/06/25 History iron) tablet (FeroSul) fluticasone 250 mcg-salmeterol 50 1 inh inhalation Q12H 04/06/25 04/06/25 History mcg/dose blistr powdr for inhalation (Advair Diskus) ipratropium 0.5 mg-albuterol 3 mg 3 ml inhalation Q6H 04/06/25 04/06/25 History (2.5 mg base)/3 mL nebulization soln metoprolol tartrate 25 mg tablet 100 mg PO HS 04/06/25 04/06/25 History metoprolol tartrate 50 mg tablet 50 mg PO DAILY 04/06/25 04/06/25 History midodrine 10 mg tablet 10 mg PO DAILY 04/06/25 04/06/25 History pantoprazole 40 mg tablet,delayed 40 mg PO QAM 04/06/25 04/06/25 History release potassium chloride 10 mEq 20 meq PO DAILY 04/06/25 04/06/25 History tablet,extended release riociguat 1 mg tablet (Adempas) 1 mg PO TID 04/06/25 04/06/25 History selexipag 800 mcg tablet (Uptravi) 800 mcg PO BID 04/06/25 04/06/25 History sertraline 50 mg tablet 50 mg PO DAILY 04/06/25 04/06/25 History simvastatin 10 mg tablet 10 mg PO QPM 04/06/25 04/06/25 History tiotropium bromide 18 mcg capsule 1 cap inhalation QHS 04/06/25 04/06/25 History with inhalation device (Spiriva with HandiHaler) torsemide 20 mg tablet 20 mg PO DAILY 04/06/25 04/06/25 History vitamin X64-[id number] factor 110 cap PO DAILY 04/06/25 History mg-0.5 mg capsule Allergies Allergy/AdvReac Type Severity Reaction Status Date / Time nitrofurantoin Allergy Mild Unknown Verified 04/06/25 12:13 Penicillins Allergy Mild Unknown Verified 04/06/25 12:13 Sulfa (Sulfonamide Allergy Mild Unknown Verified 04/06/25 12:13 Antibiotics) Vital Signs Vital Signs - 24 hr 04/06/25 09:02 04/06/25 09:07 04/06/25 09:12 Temperature 98.6 F Pulse Rate 141 H 138 H 138 H Respiratory Rate 27 H Blood Pressure 133/86 Pulse Oximetry 94 Oxygen Delivery Nasal Cannula Oxygen Flow Rate 4 04/06/25 09:12 04/06/25 09:12 04/06/25 09:42 Temperature Pulse Rate 142 H 142 H Respiratory Rate 25 H Blood Pressure 133/86 115/90 Pulse Oximetry 95 95 Oxygen Delivery Nasal Cannula Oxygen Flow Rate 4 04/06/25 09:42 04/06/25 09:55 04/06/25 10:08 Temperature Pulse Rate 142 H 135 H 135 H Respiratory Rate 27 H 28 H Blood Pressure 115/90 128/87 Pulse Oximetry 92 95 Oxygen Delivery BiPAP Oxygen Flow Rate 04/06/25 10:11 04/06/25 10:30 04/06/25 11:05 Temperature Pulse Rate 130 H 144 H 129 H Respiratory Rate 27 H Blood Pressure 128/87 124/95 H 120/86 Pulse Oximetry 93 Oxygen Delivery Oxygen Flow Rate 04/06/25 11:06 04/06/25 11:19 04/06/25 11:20 Temperature 98.7 F Pulse Rate 121 H 120 H 120 H Respiratory Rate 27 H 24 H Blood Pressure 120/86 118/88 118/88 Pulse Oximetry 93 93 Oxygen Delivery Oxygen Flow Rate 04/06/25 12:00 04/06/25 12:56 Temperature Pulse Rate 101 H Respiratory Rate 32 H Blood Pressure Pulse Oximetry 92 92 Oxygen Delivery BiPAP BiPAP Oxygen Flow Rate 4 Exam Const: General: comfortable and no acute distress Other: , female, elderly, frail, modestly ill-appearing HENMT: Face/Nose/Sinus: Normal nares present Mouth: Yes dry mucous membranes Eyes: General: appearance normal, both eyes and all related structures Sclera: sclerae normal Pupils: Equal, round and reactive pupils present EOM: EOMs intact bilaterally Resp: Other: Tachypneic without conversational dyspnea. Productive cough. No wheezing, faint bibasilar crackles. Tolerating BiPAP well. Cardio: Rate: regular rate Rhythm: abnormal rhythm (Consistent with AFib) Other: S1-S2 present without murmur, rub, ectopy GI: Other: Abdomen soft, nondistended, nontender. Normoactive bowel sounds in all quadrants. Skin: General skin exam: normal color and no rashes or lesions noted Wounds: no wounds Neuro: Speech: normal speech Motor exam (neuro): 5/5 motor strength present throughout Sensory Exam: normal sensation Other: A&O x4 Extrem: Other: Trace edema to bilateral ankles, symmetric and nonpitting. Psych: Mental Status: mental status grossly normal Affect: normal affect Other: Good insight and judgment, pleasant Results Labs Labs: Short CBC 04/06/25 Range/Units 09:23 WBC 9.2 (4.5-10.0) K/mm3 Hgb 12.7 (12.0-15.0) g/dL Hct 40.0 (37.0-47.0) % Plt Count 167 (150-375) k/mm3 BMP 04/06/25 09:23 Sodium 138 Potassium 4.1 Chloride 109 H Carbon Dioxide 20 L BUN 17 Creatinine 1.09 H Glucose 115 H Calcium 10.1 Liver Function 04/06/25 Range/Units 09:23 Total Bilirubin 0.8 (0.2-1.3) mg/dL AST 27 (14-36) U/L ALT 15 (6-35) U/L Alkaline Phosphatase 56 (38-126) U/L Albumin 4.1 (3.5-5.1) g/dL Quality VTE Prophylaxis VTE prophylaxis: pharmacologic ordered Assessment and Plan Assessment and plan (1) Acute and chronic respiratory failure: Qualifiers: Respiratory failure complication: hypoxia Qualified Code(s): J96.21 - Acute and chronic respiratory failure with hypoxia Code(s): J96.20 - Acute and chronic respiratory failure, unspecified whether with hypoxia or hypercapnia Status: Acute Assessment and Plan: At baseline patient has chronic respiratory failure and utilizes home O2 as needed (typically when using the stairs or in the shower) and HS. Per EMS, patient 80% on room air upon their arrival. Maintaining O2 sats with 4 L nasal cannula, however due to work of breathing was placed on BiPAP. Workup concerning for pneumonia, CHF exacerbation, and AFib RVR. New hypoxia likely multifactorial due to the aforementioned. - BiPAP initiated on 04/06, continue inpatient for work of breathing - reviewed initial ABG, no significant abnormalities - started on broad-spectrum antibiotics for CAP - XR concerning for pulmonary edema and pneumonia, plan for diuresis - continue supplemental oxygen to maintain O2 sat greater than 92% - patient additionally has underlying COPD, DuoNeb scheduled and initiation of steroids (2) Atrial fibrillation with rapid ventricular response: Code(s): I48.91 - Unspecified atrial fibrillation Status: Acute Assessment and Plan: Initially EKG concerning for atrial flutter/tachycardia with RVR, rate 133. Initial heart rate upon arrival in the 140s. Patient has history of AFib on metoprolol and Eliquis. Suspect flare due to acute illness. - started on diltiazem gtt on 04/06, currently requiring 15 mg/hr - hold metoprolol - updating echo - check TSH - continue Eliquis - consult cardiology (3) Sepsis: Qualifiers: Acute respiratory failure type: with hypoxia Sepsis acute organ dysfunction status: with acute organ dysfunction Sepsis type: sepsis due to unspecified organism Severe sepsis acute organ dysfunction type: acute respiratory failure Severe sepsis shock status: without septic shock Qualified Code(s): A41.9 - Sepsis, unspecified organism; R65.20 - Severe sepsis without septic shock; J96.01 - Acute respiratory failure with hypoxia Code(s): A41.9 - Sepsis, unspecified organism Status: Acute Assessment and Plan: Patient met SIRS criteria due to heart rate and tachypnea. However heart rate secondary to AFib/atrial flutter. However, patient does have suspected source -> pneumonia and has been reporting congestion/cough/shortness of breath. +hypoxia. Patient also found to be febrile, 100.5? F. - obtain blood cultures - check lactic acid >> 1.6 - current concern for CHF exacerbation, will hold on further IV fluids at this time. Was given a 1L bolus in the ED. (4) Congestive heart failure: Qualifiers: Heart failure chronicity: acute on chronic Heart failure type: unspecified Qualified Code(s): I50.9 - Heart failure, unspecified Code(s): I50.9 - Heart failure, unspecified Status: Acute Assessment and Plan: Reporting suggestive shortness of breath, new hypoxia. CXR from 04/06 concerning for pulmonary edema. BNP additionally elevated at 8130. History of CHF, currently acute on chronic. No previous echo on file. - update echo - Lasix 40 mg IV daily, hold home Torsemide 20 mg daily - monitor I&Os daily weights - trend renal function (5) Pneumonia: Qualifiers: Laterality: bilateral Lung location: unspecified part of lung Pneumonia type: due to unspecified organism Qualified Code(s): J18.9 - Pneumonia, unspecified organism Code(s): J18.9 - Pneumonia, unspecified organism Status: Acute Assessment and Plan: CXR concerning for interstitial pulmonary edema and/or multifocal airspace disease. Patient has elevated BN P making CHF exacerbation likely, however she is additionally reporting congestion/cough/diarrhea which increases suspicion for viral illness/subsequent pneumonia. WBC 9.2 upon admission. Patient did have an elevated heart rate and tachypneic, meeting SIRS/sepsis criteria. - started on ceftriaxone and azithromycin on 04/06 - Tessalon Perles, guaifenesin/codeine p.r.n. for cough, DuoNebs delmis - check viral PCR (6) COPD (chronic obstructive pulmonary disease): Qualifiers: COPD type: unspecified COPD Qualified Code(s): J44.9 - Chronic obstructive pulmonary disease, unspecified Code(s): J44.9 - Chronic obstructive pulmonary disease, unspecified Status: Chronic Assessment and Plan: - DuoNebs delmis - prednisone 40 mg x 5 days - continue home maintenance medications Plan Diet: Heart healthy GI Prophylaxis: n/a DVT Prophylaxis: Eliquis IV fluids: 1L bolus, now diuresing Lines/Tubes: pIV Code Status: full code Prior Studies I have reviewed the following patient records and this information was taken into consideration when formulating the assessment and plan.: previous labs, previous ER visits, previous hospitalizations and previous clinic visits Time Spent with Patient Time with patient: less than 45 minutes Hospitalist MIPS Advance Care Plan I have confirmed that the patient's Advanced Care Plan is present, code status is documented, or surrogate decision maker is listed in patient medical record.: Yes Medication Reconciliation I have utilized all available resources to obtain, update and review the patients current medications (includes all prescriptions, OTC, herbals, cannabis, and nutritional supplements).: Yes
[2025-04-06] MEDS: PANTOPRAZOLE 40 MG TABLET PO (15:19)
[2025-04-06] MEDS: IPRATROPIUM 0.5 MG/ALBUTEROL SULFATE 2.5 MG (BASE) AMPUL.NEB 3 ML INHALATION ×2 (15:19→19:52)
[2025-04-06] MEDS: POTASSIUM CHLORIDE 20 MEQ ER TABLET PO (15:20)
[2025-04-06] MEDS: cefTRIAXone 1 GM in SODIUM CHLORIDE 0.9% IV 50 ML 100 ML IVPB (15:20)
[2025-04-06] MEDS: CALCIUM/VITAMIN D 500 MG/5 MCG (200 I.U.) TABLET PO (15:20)
[2025-04-06] MEDS: EMPAGLIFLOZIN 10 MG TABLET PO (15:20)
[2025-04-06] MEDS: MIDODRINE HCL 10 MG TABLET PO (15:20)
[2025-04-06] MEDS: AZITHROMYCIN IV 500 MG in SODIUM CHLORIDE 0.9% IV 250 ML IVPB (15:59)
[2025-04-06 16:21] LABS: Influenza A QL RT-PCR Negative (Negative); Influenza B QL RT-PCR Negative (Negative); RSV RNA, RT-PCR Negative (Negative); SARS-CoV-2 RNA PCR Negative (Negative)
[2025-04-06] MEDS: SIMVASTATIN 10 MG TABLET PO (16:53)
[2025-04-06] MEDS: FLUTICASONE/SALMETEROL 115-21 MCG INHALER 1 PUFF 2 PUFF INHALATION (19:52)
[2025-04-06] MEDS: cycloSPORINE 0.4 ML OPHTH SOLUTION 1 DROP EACH EYE (22:35)
[2025-04-06] MEDS: APIXABAN 2.5 MG TABLET PO (22:35)
[2025-04-06] MEDS: LATANOPROST 0.005% OP SOLN 2.5 ML BTL 1 DROP EACH EYE (22:36)
[2025-04-07] VITALS (33 sets, daily range): BP systolic 99–122; BP diastolic 60–85; PULSE 73–147; RESP 18–37; TEMP 36.6–37.2; O2SAT 94–100
--- NOTE | 2025-04-07 | ECHO_ITS ---
Patient Info Name: Jade Alaniz Age: 89 years : 1935 Gender: Female Ht: 60 in Wt: 123 lbs BSA: 1.55 m2 HR: 128 bpm BP: 106 / 83 mmHg Technical Quality: Good Exam Date: 04/07/2025 2:33 PM Patient Status: I Admit Date: 04/07/2025 Exam Type: CA echo doppler color flow Complete two-dimensional, color flow and Doppler transthoracic echocardiogram is performed. Staff Referring Physician: Rafael Padgett Retail Director: Ollie Velazquez III Attending Provider: Lynn Fernandez MD Summary 1. Complete two-dimensional, color flow and Doppler transthoracic echocardiogram is performed. 2. There is an abnormal cyst-like structure in the liver. Clinical correlation recommended. 3. There is normal biventricular size and systolic function. 4. There is mild concentric left ventricular hypertrophy. 5. The tricuspid valve is normal. There is moderate tricuspid regurgitation. Left Ventricle The left ventricle is normal in size and systolic function. There is mild concentric left ventricular hypertrophy. The left ventricular ejection fraction is visually estimated to be 60-65%. Right Ventricle The right ventricle is normal in size and systolic function. Linear artifact in right ventricle suggestive of catheter(s), pacemaker lead(s), or ICD lead(s). Left Atria The left atrium is moderately dilated. Right Atria Linear artifact in the right atrium suggestive of catheter(s), pacemaker lead(s), or ICD lead(s). The right atrium is dilated. Atrial Septum The atrial septum is normal. Aortic Valve The aortic valve is trileaflet and opens well. There is no aortic regurgitation. Pulmonic Valve The pulmonic valve is not well visualized. Mitral Valve The mitral valve leaflets are sclerotic. There is trace mitral regurgitation. Tricuspid Valve The tricuspid valve is normal. There is moderate tricuspid regurgitation. Pericardium/Pleural Pericardium is normal in appearance with no evidence for significant pericardial effusion. Inferior Vena Cava Normal inferior vena cava with >50% collapse upon inspiration consistent with normal right atrial pressure, 3 mmHg. Aorta The aortic root at the level of the sinus of Valsalva measures 2.7 cm in diameter. Left Ventricular Outflow Tract Name Value Normal LVOT 2D LVOT Diameter 2.0 cm LVOT Doppler LVOT Peak Velocity 100 cm/s LVOT Peak Gradient 4 mmHg LVOT Mean Gradient 2 mmHg LVOT VTI 18 cm LVOT VTI/AV VTI Ratio 1.0 LVOT Stroke Volume 56 ml LVOT CO 7.4 l/min LVOT CI 4.8 l/min/m2 Pulmonic Valve Name Value Normal PV Doppler PV Peak Velocity 65 cm/s PV Peak Gradient 2 mmHg PV Mean Gradient 1 mmHg Mitral Valve Name Value Normal MV Doppler MV Peak Gradient 13 mmHg MV Mean Gradient 4 mmHg MV Area (Cont Eq VTI) 2.3 cm2 MV Regurgitation Doppler MR Peak Gradient 88 mmHg MV Diastolic Function MV E Peak Velocity 170 cm/s MV Decel Time (PW) 137 ms MV Annular TDI MV E/e' (Septal) 20.4 MV E/e' (Lateral) 13.3 MV E/e' (Average) 16.9 Tricuspid Valve Name Value Normal TV Regurgitation Doppler TR Peak Velocity 383 cm/s TR Peak Gradient 35 mmHg Estimated PAP/RSVP RA Pressure 3 mmHg <=5 PA Systolic Pressure 62 mmHg <36 RV Systolic Pressure 62 mmHg <36 TV Annular TDI TV Lateral [place] s' Velocity 11.0 cm/s >=9.5 Aortic Valve Name Value Normal AV Doppler AV Peak Velocity 120 cm/s AV Peak Gradient 5 mmHg AV Mean Gradient 3 mmHg AV VTI 17 cm AV Area (Cont Eq VTI) 3.3 cm2 >=3.0 AV Area (Cont Eq Jef) 2.6 cm2 AV DI (Jef) 0.83 AV Regurgitation 2D LVOT Area 3.2 cm2 Ventricles Name Value Normal LV Dimensions 2D/MM IVS Diastolic Thickness (2D) 1.4 cm 0.6-1.0 LVID Diastole (2D) 3.6 cm 3.8-5.2 LVIW Diastolic Thickness (2D) 1.3 cm 0.6-0.9 LVID Systole (2D) 2.5 cm 2.2-3.5 LVOT Diameter 2.0 cm LV Mass (2D Cubed) 163.26 g 67.00-162.00 LV Mass Index (2D Cubed) 105 g/m2 43-95 Relative Wall Thickness (2D) 0.71 <=0.42 LV Fractional Shortening/Ejection Fraction 2D/MM LV Fractional Shortening (2D) 29 % 27-45 LV EF (2D Teichholz) 56 % LV Diastolic Volume (4C MOD) 33 ml LV EF (4C MOD) 64 % LV Diastolic Volume (2C MOD) 34 ml LV EF (2C MOD) 61 % LV Diastolic Volume (BP MOD) 34 ml 46-106 LV Diastolic Volume Index (BP MOD) 22 ml/m2 29-61 LV Systolic Volume (BP MOD) 13 ml 14-42 LV Systolic Volume Index (BP MOD) 8 ml/m2 8-24 LV EF (BP MOD) 63 % 54-74 LV Diastolic Length (4C) 6.3 cm LV Systolic Length (4C) 5.2 cm LV Stroke Volume (4C MOD) 21 ml Atria Name Value Normal LA Dimensions LA Volume (4C A-L) 56 ml LA Volume (BP A-L) 62 ml RA Dimensions RA Systolic Major [place] Length (4C) 6.1 cm 2.2-2.8 RA Area (4C) 20.6 cm2 <=18.0 Report Signatures
[2025-04-07] MEDS: IPRATROPIUM 0.5 MG/ALBUTEROL SULFATE 2.5 MG (BASE) AMPUL.NEB 3 ML INHALATION ×4 (02:00→20:38)
[2025-04-07 04:13] LABS: Hematocrit 37.7 % (37.0-47.0); Hemoglobin 11.9 g/dL (12.0-15.0); Immature Granulocyte Percent A 0.7 % (0-0.5); Lymphocytes Absolute Auto 0.53 K/mm3 (0.9-3.2); Mean Corpuscular HGB Conc 31.6 g/dl (32-36); Mean Corpuscular Hemoglobin 27.5 pg (26-34); Mean Corpuscular Volume 87.3 fl (80-100); Nucleated Red Blood Cells Absolute Auto 0.000 K/mm3 (0.0-0.012); Nucleated Red Blood Cells Perc 0.0 % (0.0-0.2); Platelet Count Result 147 k/mm3 (150-375); Red Blood Count 4.32 M/mm3 (4.2-5.4); White Blood Count 10.0 K/mm3 (4.5-10.0)
[2025-04-07 04:38] LABS: Anion Gap 8 mmol/L (4-12); Blood Urea Nitrogen 19 mg/dL (7-17); Calcium 9.5 mg/dL (8.4-10.2); Carbon Dioxide 23 mmol/L (22-30); Chloride 105 mmol/L (98-107); Estimated CRCL calculation 19 ml/min; Estimated Glomerular Filt Rate 39; Glucose 135 mg/dL (65-110); Potassium 3.8 mmol/L (3.4-5.0); Sodium 136 mmol/L (137-145)
[2025-04-07 04:55] LABS: Anisocytosis 1+; Burr Cells Occasional; Ovalocytes 1+; Schistocytes None Seen
[2025-04-07 04:56] LABS: Thyroid Stimulating Hormone Reflex 0.302 uIU/mL (0.465-4.68)
[2025-04-07 05:29] LABS: Free T4 Free Thyroxine Reflex 1.67 ng/dL (0.78-2.19)
--- NOTE | 2025-04-07 06:12 | PCRCNOTE ---
Incruse/Ellipta is given during the day. The 2100 tx had been taken as it's a once a day med. RCS will start in the am.
[2025-04-07 06:16] LABS: Total Triiodothyronine (T3) 1.53 NG/ML (0.82-1.58)
[2025-04-07] MEDS: FLUTICASONE/SALMETEROL 115-21 MCG INHALER 1 PUFF 2 PUFF INHALATION ×2 (07:51→20:38)
[2025-04-07] MEDS: POTASSIUM CHLORIDE 20 MEQ ER TABLET PO (08:37)
[2025-04-07] MEDS: SERTRALINE HCL 50 MG TABLET PO (08:38)
[2025-04-07] MEDS: APIXABAN 2.5 MG TABLET PO ×2 (08:38→20:16)
[2025-04-07] MEDS: EMPAGLIFLOZIN 10 MG TABLET PO (08:38)
[2025-04-07] MEDS: CALCIUM/VITAMIN D 500 MG/5 MCG (200 I.U.) TABLET PO (08:38)
[2025-04-07] MEDS: FUROSEMIDE INJ 40 MG/4 ML VIAL IV PUSH (08:39)
[2025-04-07] MEDS: MIDODRINE HCL 10 MG TABLET PO (08:39)
[2025-04-07] MEDS: PANTOPRAZOLE 40 MG TABLET PO (08:39)
[2025-04-07] MEDS: ACIDOPHILUS/BULGARICUS CHEWABLE TABLET 1 TABLET PO (08:39)
[2025-04-07] MEDS: FERROUS SULFATE 325 MG TABLET PO (08:51)
[2025-04-07] MEDS: METOPROLOL TARTRATE 50 MG TAB PO ×2 (08:57→09:00)
[2025-04-07] MEDS: UMECLIDINIUM BROMIDE 62.5 MCG ELLIPTA 1 PUFF INHALATION (09:37)
--- NOTE | 2025-04-07 10:05 | PM.IMPN2 ---
Assessment and Plan Assessment and Plan (1) Acute and chronic respiratory failure: Qualifiers: Respiratory failure complication: hypoxia Qualified Code(s): J96.21 - Acute and chronic respiratory failure with hypoxia Code(s): J96.20 - Acute and chronic respiratory failure, unspecified whether with hypoxia or hypercapnia Status: Acute Assessment and Plan: At baseline patient has chronic respiratory failure and utilizes home O2 as needed (typically when using the stairs or in the shower) and HS. Per EMS, patient 80% on room air upon their arrival. Maintaining O2 sats with 4 L nasal cannula, however due to work of breathing was placed on BiPAP. Workup concerning for pneumonia, CHF exacerbation, and AFib RVR. New hypoxia likely multifactorial due to the aforementioned. - BiPAP initiated on 04/06, continue inpatient for work of breathing - reviewed initial ABG, no significant abnormalities - started on broad-spectrum antibiotics for CAP - XR concerning for pulmonary edema and pneumonia, plan for diuresis - continue supplemental oxygen to maintain O2 sat greater than 92% - patient additionally has underlying COPD, DuoNeb scheduled and initiation of steroids (2) Atrial fibrillation with rapid ventricular response: Code(s): I48.91 - Unspecified atrial fibrillation Status: Acute Assessment and Plan: Initially EKG concerning for atrial flutter/tachycardia with RVR, rate 133. Initial heart rate upon arrival in the 140s. Patient has history of AFib on metoprolol and Eliquis. Suspect flare due to acute illness. - started on diltiazem gtt on 04/06, currently requiring 15 mg/hr - updating echo - TSH 0.302 with normal free T4 recheck as outpatient basis - continue Eliquis - consult cardiology will restart diltiazem drip. Restart metoprolol (3) Sepsis: Qualifiers: Sepsis type: sepsis due to unspecified organism Sepsis acute organ dysfunction status: with acute organ dysfunction Severe sepsis acute organ dysfunction type: acute respiratory failure Acute respiratory failure type: with hypoxia Severe sepsis shock status: without septic shock Qualified Code(s): A41.9 - Sepsis, unspecified organism; R65.20 - Severe sepsis without septic shock; J96.01 - Acute respiratory failure with hypoxia Code(s): A41.9 - Sepsis, unspecified organism Status: Acute Assessment and Plan: Patient met SIRS criteria due to heart rate and tachypnea. However heart rate secondary to AFib/atrial flutter. However, patient does have suspected source -> pneumonia and has been reporting congestion/cough/shortness of breath. +hypoxia. Patient also found to be febrile, 100.5? F. - follow blood culture - lactic acid normal - current concern for CHF exacerbation, will hold on further IV fluids at this time. Was given a 1L bolus in the ED. (4) Congestive heart failure: Qualifiers: Heart failure chronicity: acute on chronic Heart failure type: unspecified Qualified Code(s): I50.9 - Heart failure, unspecified Code(s): I50.9 - Heart failure, unspecified Status: Acute Assessment and Plan: Reporting suggestive shortness of breath, new hypoxia. CXR from 04/06 concerning for pulmonary edema. BNP additionally elevated at 8130. History of CHF, currently acute on chronic. No previous echo on file. - update echo - Lasix 40 mg IV daily, hold home Torsemide 20 mg daily - monitor I&Os daily weights - trend renal function On chronic midodrine therapy (5) Pneumonia: Qualifiers: Pneumonia type: due to unspecified organism Laterality: bilateral Lung location: unspecified part of lung Qualified Code(s): J18.9 - Pneumonia, unspecified organism Code(s): J18.9 - Pneumonia, unspecified organism Status: Acute Assessment and Plan: CXR concerning for interstitial pulmonary edema and/or multifocal airspace disease. Patient has elevated BN P making CHF exacerbation likely, however she is additionally reporting congestion/cough/diarrhea which increases suspicion for viral illness/subsequent pneumonia. WBC 9.2 upon admission. Patient did have an elevated heart rate and tachypneic, meeting SIRS/sepsis criteria. - started on ceftriaxone and azithromycin on 04/06 - Tessalon Perles, guaifenesin/codeine p.r.n. for cough, DuoNebs delmis -influenza RSV COVID swab negative (6) COPD (chronic obstructive pulmonary disease): Qualifiers: COPD type: unspecified COPD Qualified Code(s): J44.9 - Chronic obstructive pulmonary disease, unspecified Code(s): J44.9 - Chronic obstructive pulmonary disease, unspecified Status: Chronic Assessment and Plan: - DuoNebs delmis - prednisone 40 mg x 5 days - continue home maintenance medications Plan 89 y/o F with PMH of Afib, COPD, chronic respiratory failure on supplemental O2 p.r.n. and HS, HTN, HLD, RA, and CHF presents here with shortness of breath. The patient presents here from home via EMS on 04/06 for further evaluation of shortness of breath. She reports onset of dyspnea approximately 2 days ago. Shortness of breath has been progressive. She then developed cough, congestion, nausea with dry heaving but no vomiting, chills, and diarrhea yesterday (04/05). She has been utilizing her home breathing treatments with minimal relief. No new symptoms today. Denies chest pain, palpitations, lower extremity swelling, or weight gain. She is on supplemental O2 as needed (typically used when taking the stairs or when taking a shower) and at night as needed - 2L NC. Per EMS, upon arrival the patient was 80% on room air and was subsequently placed on 4L NC and given a DuoNeb. She arrived 94% on 4L. Initial VS at presentation: 98.6? F, HR 141, RR 27, 133/86, and 94% on 4L nasal cannula. ED workup showed: No leukocytosis, no anemia, initial ABG showed a mildly reduced CO2 level, mildly reduced O2 level, with no acidosis/alkalosis, creatinine 1.09 and GFR 47, glucose 115, BNP 8130. EKG showed atrial flutter/tachycardia with RVR, left axis deviation, possible right ventricular conduction delay, delayed precordial R/S transition, borderline ST-T-wave abnormality lateral/high leads. CXR showed interstitial pulmonary edema and or multifocal airspace disease. Diet: Heart healthy DVT Prophylaxis: Eliquis IV fluids: 1L bolus, now diuresing Lines/Tubes: pIV Code Status: full code Subjective Date/time seen: 04/07/25 10:05 Interval history: Diltiazem and drip was discontinued. AFib with RVR has worsened. denies any shortness of breath off BiPAP. Feels much Better. Review of Systems Review of Systems: All systems reviewed & are unremarkable except as noted in HPI and below Exam Narrative: APPEARANCE: Well-appearing not in acute distress HEAD: normocephalic, atraumatic. EYES: PERRLA/EOMI, conjunctivae clear. NOSE: Normal no drainage NECK: Supple. No adenopathy, no masses. RESPIRATORY: Airway patent, respirations nonlabored. Clear to auscultation bilaterally, no rales, rhonchi, wheezing. CARDIOVASCULAR: Tachycardia AFib with RVR on telemetry ABDOMINAL: Soft, nontender, nondistended, normal bowel sounds MUSCULOSKELETAL: Moves all extremities. Strength/ROM intact, No edema, No calf tenderness. NEURO: Alert. Cranial nerves II through XII intact. Good gait. Good coordination SKIN: Warm, dry. Normal Color Objective Data Vital Signs Vital Signs: Vital Signs - 24 hr 04/06/25 10:08 04/06/25 10:11 04/06/25 10:30 Temperature Pulse Rate 135 H 130 H 144 H Respiratory Rate 27 H Blood Pressure 128/87 128/87 124/95 H Pulse Oximetry 93 Oxygen Delivery Oxygen Flow Rate Fraction of Inspired Oxygen 04/06/25 11:05 04/06/25 11:06 04/06/25 11:19 Temperature 98.7 F Pulse Rate 129 H 121 H 120 H Respiratory Rate 27 H 24 H Blood Pressure 120/86 120/86 118/88 Pulse Oximetry 93 93 Oxygen Delivery Oxygen Flow Rate Fraction of Inspired Oxygen 04/06/25 11:20 04/06/25 12:00 04/06/25 12:10 Temperature Pulse Rate 120 H 101 H 101 H Respiratory Rate 32 H Blood Pressure 118/88 119/75 Pulse Oximetry 92 Oxygen Delivery BiPAP Oxygen Flow Rate Fraction of Inspired Oxygen 04/06/25 12:56 04/06/25 14:00 04/06/25 14:00 Temperature Pulse Rate 102 H 102 H Respiratory Rate Blood Pressure Pulse Oximetry 92 Oxygen Delivery BiPAP Oxygen Flow Rate 4 Fraction of Inspired Oxygen 04/06/25 15:15 04/06/25 15:15 04/06/25 15:25 Temperature Pulse Rate 104 H 104 H 102 H Respiratory Rate 23 H 23 H 23 H Blood Pressure Pulse Oximetry 95 Oxygen Delivery BiPAP Oxygen Flow Rate Fraction of Inspired Oxygen 04/06/25 16:00 04/06/25 16:00 04/06/25 16:00 Temperature Pulse Rate 115 H 118 H Respiratory Rate Blood Pressure Pulse Oximetry 92 Oxygen Delivery BiPAP Oxygen Flow Rate 4 Fraction of Inspired Oxygen 04/06/25 16:00 04/06/25 18:00 04/06/25 19:52 Temperature 100.5 F H Pulse Rate 145 H 108 H 125 H Respiratory Rate 30 H 28 H Blood Pressure 146/80 H Pulse Oximetry 96 Oxygen Delivery Oxygen Flow Rate Fraction of Inspired Oxygen 04/06/25 19:52 04/06/25 19:57 04/06/25 20:00 Temperature Pulse Rate 125 H 125 H 110 H Respiratory Rate 28 H 28 H Blood Pressure Pulse Oximetry 94 Oxygen Delivery BiPAP Oxygen Flow Rate Fraction of Inspired Oxygen 04/06/25 20:23 04/06/25 21:23 04/06/25 22:00 Temperature 99.0 F Pulse Rate 130 H 121 H Respiratory Rate 20 Blood Pressure 124/75 Pulse Oximetry 92 94 Oxygen Delivery BiPAP Oxygen Flow Rate Fraction of Inspired Oxygen 30 04/06/25 22:18 04/06/25 23:56 04/07/25 00:00 Temperature Pulse Rate 130 H 129 H 116 H Respiratory Rate 20 37 H Blood Pressure Pulse Oximetry 92 96 Oxygen Delivery BiPAP BiPAP Oxygen Flow Rate Fraction of Inspired Oxygen 30 30 04/07/25 00:05 04/07/25 02:00 04/07/25 02:01 Temperature 98.9 F Pulse Rate 129 H 122 H 123 H Respiratory Rate 37 H 30 H Blood Pressure 99/85 L Pulse Oximetry 96 Oxygen Delivery Oxygen Flow Rate Fraction of Inspired Oxygen 04/07/25 02:06 04/07/25 02:08 04/07/25 04:00 Temperature Pulse Rate 123 H 123 H 123 H Respiratory Rate 30 H 30 H Blood Pressure Pulse Oximetry 96 Oxygen Delivery BiPAP Oxygen Flow Rate Fraction of Inspired Oxygen 04/07/25 04:28 04/07/25 05:05 04/07/25 06:00 Temperature 98.8 F Pulse Rate 128 H 128 H 125 H Respiratory Rate 23 H 23 H Blood Pressure 106/83 Pulse Oximetry 97 97 Oxygen Delivery BiPAP Oxygen Flow Rate Fraction of Inspired Oxygen 30 04/07/25 07:57 04/07/25 08:00 04/07/25 08:09 Temperature 98.0 F Pulse Rate 125 H 124 H 128 H Respiratory Rate 20 26 H 20 Blood Pressure 122/79 Pulse Oximetry 100 Oxygen Delivery Oxygen Flow Rate Fraction of Inspired Oxygen 04/07/25 08:23 04/07/25 08:57 Temperature Pulse Rate 129 H 147 H Respiratory Rate 20 Blood Pressure Pulse Oximetry 98 Oxygen Delivery Nasal Cannula Oxygen Flow Rate 2 Fraction of Inspired Oxygen Intake/Output Intake/Output: Intake & Output 04/04/25 04/05/25 04/06/25 04/07/25 23:59 23:59 23:59 23:59 Intake Total 1773.9 240 Output Total 1150 400 Balance 623.9 -160 Meds/Results Medications: Active Medications Generic Name Dose Route Start Last Admin Trade Name Freq PRN Reason Stop Dose Admin Acetaminophen 1,000 mg 04/06/25 13:57 Acetaminophen 500 Mg Tablet PO Q6H PRN PAIN RATED 4-6 Albuterol/Ipratropium 3 ml 04/06/25 14:00 04/07/25 07:50 Ipratropium 0.5 Mg/Albuterol Sulfate 2.5 Mg (Base) Ampul.Neb 3 Ml INHALATION 3 ml Q6HRT DELMIS Administration Apixaban 2.5 mg 04/06/25 21:00 04/07/25 08:38 Apixaban 2.5 Mg Tablet PO 2.5 mg Q12HR DELMIS Administration Artificial Tears 1 drop 04/06/25 14:20 Artificial Tears Ophth Soln 15 Ml Bottle EACH EYE Q6H PRN Dry Eye(s) Benzonatate 100 mg 04/06/25 14:06 Benzonatate 100 Mg Capsule PO TID PRN Cough Calcium Carbonate 500 mg 04/06/25 14:20 04/07/25 08:38 Calcium/Vitamin D 500 Mg/5 Mcg (200 I.U.) Tablet PO 500 mg DAILY DELMIS Administration Cyclosporine 1 drop 04/06/25 21:00 04/06/25 22:35 Cyclosporine 0.4 Ml Ophth Solution EACH EYE 1 drop QHS DELMIS Administration Diclofenac Sodium 0 applic 04/06/25 14:06 Diclofenac Sodium 1% 100 Gm Gel (*Bkc) TOPICAL QID PRN joint pain Diphenhydramine HCl 25 mg 04/06/25 13:57 Diphenhydramine Hcl Cap 25 Mg Capsule PO Q6H PRN allergy symptoms Empagliflozin 10 mg 04/06/25 14:20 04/07/25 08:38 Empagliflozin 10 Mg Tablet PO 10 mg DAILY DELMIS Administration Ferrous Sulfate 325 mg 04/07/25 09:00 04/07/25 08:51 Ferrous Sulfate 325 Mg Tablet PO 325 mg MoWeFr@0900 DELMIS Administration Furosemide 40 mg 04/07/25 09:00 04/07/25 08:39 Furosemide Inj 40 Mg/4 Ml Vial IV PUSH 40 mg DAILY DELMIS Administration Guaifenesin/Codeine Phosphate 10 ml 04/06/25 13:57 Guaifenesin/Codeine (*Crx) 200/20 Mg 10 Ml Syrup PO Q4-6H PRN Cough Ceftriaxone Sodium 1 gm/ 50 mls @ 100 mls/hr 04/06/25 15:00 04/06/25 22:18 Sodium Chloride IVPB Infused Q24H DELMIS Infusion Azithromycin 500 mg/ Sodium 250 mls @ 250 mls/hr 04/06/25 15:00 04/06/25 22:18 Chloride IVPB 04/10/25 15:59 Infused Q24H DELMIS Infusion Lactobacillus Acidophilus 1 tablet 04/07/25 09:00 04/07/25 08:39 Acidophilus/Bul[place] Chewable Tablet PO 1 tablet DAILY DELMIS Administration Latanoprost 1 drop 04/06/25 21:00 04/06/25 22:36 Latanoprost 0.005% Op Soln 2.5 Ml Btl EACH EYE 1 drop QHS DELMIS Administration Metoprolol Tartrate 50 mg 04/07/25 08:50 04/07/25 08:57 Metoprolol Tartrate 50 Mg Tab PO 50 mg DAILY DELMIS Administration Metoprolol Tartrate 100 mg 04/07/25 21:00 Metoprolol Tartrate 50 Mg Tab PO HS DELMIS Midodrine 10 mg 04/06/25 14:20 04/07/25 08:39 Midodrine Hcl 10 Mg Tablet PO 10 mg DAILY DELMIS Administration Miscellaneous Information 1 each 04/07/25 00:01 04/07/25 05:30 Adempas Is Nonform; Can Pt Use From Home? XX 05/07/25 00:00 Not Given CLARIFY DELMIS Miscellaneous Information 1 each 04/07/25 00:01 04/07/25 05:31 Uptravi Is Nonform; Can Pt Use From Home? XX 05/07/25 00:00 Not Given CLARIFY DELMIS Non-Formulary Medication 1 mg 04/06/25 17:00 Riociguat [Adempas] PO 05/06/25 16:59 TID DELMIS Non-Formulary Medication 800 mcg 04/06/25 17:00 Selexipag [Uptravi] PO 05/06/25 16:59 BID DELMIS Pantoprazole Sodium 40 mg 04/06/25 14:20 04/07/25 08:39 Pantoprazole 40 Mg Tablet PO 40 mg QAM DELMIS Administration Perflutren Lipid Microsphere 0 ml 04/06/25 14:00 Perflutren Lipid Microspheres 1.5 Ml Vial Diluted To 10 Ml Total Volume IV PUSH 04/09/25 14:00 ONCE PRN adequate visualization Protocol Potassium Chloride 20 meq 04/06/25 14:20 04/07/25 08:37 Potassium Chloride 20 Meq Er Tablet PO 20 meq DAILY DELMIS Administration Prednisone 40 mg 04/06/25 14:05 04/07/25 08:38 Prednisone 20 Mg Tablet PO 04/10/25 08:01 40 mg DAILY@0800 DELMIS Administration Fluticasone/Salmeterol 2 puff 04/06/25 20:00 04/07/25 07:51 Fluticasone/Salmeterol 115-21 Mcg Inhaler 1 Puff INHALATION 2 puff Q12HRT DELMIS Administration Sertraline HCl 50 mg 04/06/25 14:20 04/07/25 08:38 Sertraline Hcl 50 Mg Tablet PO 50 mg DAILY DELMIS Administration Simvastatin 10 mg 04/06/25 18:00 04/06/25 16:53 Simvastatin 10 Mg Tablet PO 10 mg QPM DELMIS Administration Umeclidinium [place] 1 puff 04/07/25 08:00 04/07/25 09:37 Umeclidinium [place] 62.5 Mcg Ellipta INHALATION 1 puff DAILYRT DELMIS Administration Radiology Results: ITS Impressions Chest X-Ray 04/06/25 10:27 IMPRESSION: 1. Interstitial pulmonary edema and/or multifocal airspace disease. Labs Labs: Laboratory Results - last 24 hr 04/06/25 04/06/25 04/07/25 14:47 15:38 03:47 WBC 10.0 RBC 4.32 Hgb 11.9 L Hct 37.7 MCV 87.3 MCH 27.5 MCHC 31.6 L RDW 16.4 H Plt Count 147 L MPV 10.6 H Immature Gran % (Auto) 0.7 H Neut % (Auto) 91.4 H Lymph % (Auto) 5.3 L [place] % (Auto) 2.4 L Eos % (Auto) 0.0 Baso % (Auto) 0.2 Lymph # (Auto) 0.53 L [place] # (Auto) 0.2 Eos # (Auto) 0.0 Baso # (Auto) 0.0 Abs Immat Gran (auto) 0.07 H Absolute Neuts (auto) 9.2 H Absolute Nucleated RBC 0.000 Band Neutrophils % Not Reportable Nucleated RBC % 0.0 Platelet Estimate Slightly decreased Anisocytosis 1+ Ovalocytes 1+ [place] Cells Occasional Schistocytes None seen Sodium 136 L Potassium 3.8 Chloride 105 Carbon Dioxide 23 Anion Gap 8 BUN 19 H Creatinine 1.29 H Estim Creat Clear Calc 19 Estimated GFR 39 L Glucose 135 H Lactic Acid 1.6 Calcium 9.5 TSH (Reflex) 0.302 L Free T4 1.67 Total T3 1.53 Influenza A (RT-PCR) Negative Influenza B (RT-PCR) Negative RSV (RT-PCR) Negative SARS-CoV-2 RNA (RT-PCR) Negative
[2025-04-07] MEDS: dilTIAZem 100 MG/100 ML 100 MG/100 ML BAG IV CONT (11:07)
--- NOTE | 2025-04-07 11:19 | PM.CNCAR ---
Assessment and Plan Assessment and plan (1) Atrial fibrillation with rapid ventricular response: Code(s): I48.91 - Unspecified atrial fibrillation Status: Acute Assessment and Plan: She has paroxysmal atrial fibrillation, now has atrial flutter with rapid ventricular response in the setting of acute illness with pneumonia, COPD exacerbation. Continue rate control with diltiazem drip, 5 milligrams/hour. Can up titrate this to achieve heart rate less than 110 beats per minute. Continue metoprolol Continue anticoagulation with apixaban 2.5 mg p.o. b.i.d. Echocardiogram is ordered and pending Check and replace electrolytes with goals K + 4.0, magnesium 2.0 (2) Acute and chronic respiratory failure: Qualifiers: Respiratory failure complication: hypoxia Qualified Code(s): J96.21 - Acute and chronic respiratory failure with hypoxia Code(s): J96.20 - Acute and chronic respiratory failure, unspecified whether with hypoxia or hypercapnia Status: Acute Assessment and Plan: Secondary to COPD exacerbation, pneumonia (3) Pneumonia: Qualifiers: Pneumonia type: due to unspecified organism Laterality: bilateral Lung location: unspecified part of lung Qualified Code(s): J18.9 - Pneumonia, unspecified organism Code(s): J18.9 - Pneumonia, unspecified organism Status: Acute Assessment and Plan: Management per hospitalist (4) COPD (chronic obstructive pulmonary disease): Qualifiers: COPD type: unspecified COPD Qualified Code(s): J44.9 - Chronic obstructive pulmonary disease, unspecified Code(s): J44.9 - Chronic obstructive pulmonary disease, unspecified Status: Chronic Assessment and Plan: Management per hospitalist (5) Congestive heart failure: Qualifiers: Heart failure chronicity: acute on chronic Heart failure type: unspecified Qualified Code(s): I50.9 - Heart failure, unspecified Code(s): I50.9 - Heart failure, unspecified Status: Acute Assessment and Plan: Appears euvolemic on exam. Did have some pulmonary edema on CXR. Echo is pending. Continue with IV furosemide 40mg daily for now. History of Present Illness History of Present Illness Consult date/time: 04/07/25 11:19 Requesting physician: Daniel Rodgers MD Consult reason: atrial fibrillation Reason For Visit: CHF/Afib with RVR/ Hypoxia Narrative: Jade Alaniz is an 89 year old female with atrial fibrillation who presented to the ED with complaint of shortness of breath. Cardiology is consulted because of atrial fibrillation with rapid ventricular response. She has paroxysmal atrial fibrillation/flutter with last device interrogation showing 35% AF burden per patient report. She follows with a pavilion cutter in [place], she is visiting from out of town. She reports feeling better today and denies any palpitations, chest pain, swelling. Shortness of breath is improved. No active complaints at the time of my evaluation. Review of Systems Review of Systems: All systems reviewed & are unremarkable except as noted in HPI and below PMFSH Past Medical History Medical History HTN (hypertension) hx of, no longer on medications. on Midodrine as of Mar 2025 Anxiety Endometriosis Glaucoma Rheumatoid arthritis History of intestinal obstruction Hemorrhoids GERD (gastroesophageal reflux disease) History of diverticulitis History of pacemaker HLD (hyperlipidemia) DVT (deep venous thrombosis) (~2010) Chronic hypoxic respiratory failure, on home oxygen therapy PRN and HS COPD (chronic obstructive pulmonary disease) Congestive heart failure Atrial fibrillation Surgical History Surgical History History of tubal ligation History of hysterectomy History of section History of tonsillectomy History of cataract extraction History of knee replacement History of bladder surgery bladder sling, 1975 History of appendectomy History of lung surgery (~2010) History of automatic internal cardiac defibrillator (AICD) Family History Family History Mother Cancer Father Cancer Epilepsy Grandparent Cancer Social History Social History Smoking status: Never smoker Second hand tobacco smoke exposure: No Alcohol intake: never Substance use: never Lack of Transportation: No Lack of Food: Never True Current Housing: I Have Housing Concerned About Future Housing: No Difficulty Paying Gas/Electric Bills: No Difficulty Paying for Meds: No Currently Unemployed: No Education: High School Diploma/GED Difficulty w/ Childcare or Family Care: No Spiritual care concerns: No Meds Home Medications and Allergies Home Medications ?Medication ?Instructions ?Recorded ?Confirmed ?Type Lactobacillus rhamnosus GG 10 1 cap PO DAILY 04/06/25 04/06/25 History billion cell capsule (Culturelle) acetaminophen 500 mg tablet 1,000 mg PO Q6H PRN pain 04/06/25 04/06/25 History (Tylenol Extra Strength) albuterol 90 mcg/actuation aerosol mcg inhalation .q4hr 04/06/25 History inhaler apixaban 2.5 mg tablet (Eliquis) 2.5 mg PO BID 04/06/25 04/06/25 History benzonatate 100 mg capsule 100 mg PO PRN 04/06/25 04/06/25 History bimatoprost 0.01 % eye drops 1 drp EACH EYE QHS 04/06/25 04/06/25 History (Lumigan) calcium 500 mg (as 1 tablet PO DAILY 04/06/25 04/06/25 History carbonate)-vitamin D3 10 mcg (400 unit) tablet (Calcium 500 + D) carboxymethylcellulose sodium 0.5 1 drp EACH EYE .q6h prn 04/06/25 04/06/25 History % eye drops (Refresh Tears) codeine 10 mg-guaifenesin 100 mg/5 10 ml PO Q4-6H PRN cough 04/06/25 04/06/25 History mL oral liquid cyclosporine 0.05 % eye drops in a 1 drp EACH EYE QHS 04/06/25 04/06/25 History dropperette denosumab 60 mg/mL subcutaneous 60 mg subcut [id number] 04/06/25 04/06/25 History syringe diclofenac sodium 1 % topical gel 4 g topical PRN 04/06/25 04/06/25 History (Arthritis Pain (diclofenac)) diphenhydramine HCl 25 mg capsule 25 mg PO Q6H PRN allergy symptoms 04/06/25 04/06/25 History (Allergy (diphenhydramine)) empagliflozin 10 mg tablet 10 mg PO DAILY 04/06/25 04/06/25 History (Jardiance) ferrous sulfate 325 mg (65 mg 325 mg PO .COMPLEX 04/06/25 04/06/25 History iron) tablet (FeroSul) fluticasone 250 mcg-salmeterol 50 1 inh inhalation Q12H 04/06/25 04/06/25 History mcg/dose blistr powdr for inhalation (Advair Diskus) ipratropium 0.5 mg-albuterol 3 mg 3 ml inhalation Q6H 04/06/25 04/06/25 History (2.5 mg base)/3 mL nebulization soln metoprolol tartrate 25 mg tablet 100 mg PO HS 04/06/25 04/06/25 History metoprolol tartrate 50 mg tablet 50 mg PO DAILY 04/06/25 04/06/25 History midodrine 10 mg tablet 10 mg PO DAILY 04/06/25 04/06/25 History pantoprazole 40 mg tablet,delayed 40 mg PO QAM 04/06/25 04/06/25 History release potassium chloride 10 mEq 20 meq PO DAILY 04/06/25 04/06/25 History tablet,extended release riociguat 1 mg tablet (Adempas) 1 mg PO TID 04/06/25 04/06/25 History selexipag 800 mcg tablet (Uptravi) 800 mcg PO BID 04/06/25 04/06/25 History sertraline 50 mg tablet 50 mg PO DAILY 04/06/25 04/06/25 History simvastatin 10 mg tablet 10 mg PO QPM 04/06/25 04/06/25 History tiotropium bromide 18 mcg capsule 1 cap inhalation QHS 04/06/25 04/06/25 History with inhalation device (Spiriva with HandiHaler) torsemide 20 mg tablet 20 mg PO DAILY 04/06/25 04/06/25 History vitamin Q54-vzmnirewg factor 110 cap PO DAILY 04/06/25 History mg-0.5 mg capsule Allergies Allergy/AdvReac Type Severity Reaction Status Date / Time nitrofurantoin Allergy Mild Unknown Verified 04/06/25 12:13 Penicillins Allergy Mild Unknown Verified 04/06/25 12:13 Sulfa (Sulfonamide Allergy Mild Unknown Verified 04/06/25 12:13 Antibiotics) Vital Signs Vital Signs - 24 hr 04/06/25 11:20 04/06/25 12:00 04/06/25 12:10 Temperature Pulse Rate 120 H 101 H 101 H Respiratory Rate 32 H Blood Pressure 118/88 119/75 Pulse Oximetry 92 Oxygen Delivery BiPAP Oxygen Flow Rate Fraction of Inspired Oxygen 04/06/25 12:56 04/06/25 14:00 04/06/25 14:00 Temperature Pulse Rate 102 H 102 H Respiratory Rate Blood Pressure Pulse Oximetry 92 Oxygen Delivery BiPAP Oxygen Flow Rate 4 Fraction of Inspired Oxygen 04/06/25 15:15 04/06/25 15:15 04/06/25 15:25 Temperature Pulse Rate 104 H 104 H 102 H Respiratory Rate 23 H 23 H 23 H Blood Pressure Pulse Oximetry 95 Oxygen Delivery BiPAP Oxygen Flow Rate Fraction of Inspired Oxygen 04/06/25 16:00 04/06/25 16:00 04/06/25 16:00 Temperature Pulse Rate 115 H 118 H Respiratory Rate Blood Pressure Pulse Oximetry 92 Oxygen Delivery BiPAP Oxygen Flow Rate 4 Fraction of Inspired Oxygen 04/06/25 16:00 04/06/25 18:00 04/06/25 19:52 Temperature 38.1 C H Pulse Rate 145 H 108 H 125 H Respiratory Rate 30 H 28 H Blood Pressure 146/80 H Pulse Oximetry 96 Oxygen Delivery Oxygen Flow Rate Fraction of Inspired Oxygen 04/06/25 19:52 04/06/25 19:57 04/06/25 20:00 Temperature Pulse Rate 125 H 125 H 110 H Respiratory Rate 28 H 28 H Blood Pressure Pulse Oximetry 94 Oxygen Delivery BiPAP Oxygen Flow Rate Fraction of Inspired Oxygen 04/06/25 20:23 04/06/25 21:23 04/06/25 22:00 Temperature 37.2 C Pulse Rate 130 H 121 H Respiratory Rate 20 Blood Pressure 124/75 Pulse Oximetry 92 94 Oxygen Delivery BiPAP Oxygen Flow Rate Fraction of Inspired Oxygen 30 04/06/25 22:18 04/06/25 23:56 04/07/25 00:00 Temperature Pulse Rate 130 H 129 H 116 H Respiratory Rate 20 37 H Blood Pressure Pulse Oximetry 92 96 Oxygen Delivery BiPAP BiPAP Oxygen Flow Rate Fraction of Inspired Oxygen 30 30 04/07/25 00:05 04/07/25 02:00 04/07/25 02:01 Temperature 37.2 C Pulse Rate 129 H 122 H 123 H Respiratory Rate 37 H 30 H Blood Pressure 99/85 L Pulse Oximetry 96 Oxygen Delivery Oxygen Flow Rate Fraction of Inspired Oxygen 04/07/25 02:06 04/07/25 02:08 04/07/25 04:00 Temperature Pulse Rate 123 H 123 H 123 H Respiratory Rate 30 H 30 H Blood Pressure Pulse Oximetry 96 Oxygen Delivery BiPAP Oxygen Flow Rate Fraction of Inspired Oxygen 04/07/25 04:28 04/07/25 05:05 04/07/25 06:00 Temperature 37.1 C Pulse Rate 128 H 128 H 125 H Respiratory Rate 23 H 23 H Blood Pressure 106/83 Pulse Oximetry 97 97 Oxygen Delivery BiPAP Oxygen Flow Rate Fraction of Inspired Oxygen 30 04/07/25 07:57 04/07/25 08:00 04/07/25 08:09 Temperature 36.7 C Pulse Rate 125 H 124 H 128 H Respiratory Rate 20 26 H 20 Blood Pressure 122/79 Pulse Oximetry 100 Oxygen Delivery Oxygen Flow Rate Fraction of Inspired Oxygen 04/07/25 08:23 04/07/25 08:57 04/07/25 09:00 Temperature Pulse Rate 129 H 147 H 146 H Respiratory Rate 20 Blood Pressure Pulse Oximetry 98 Oxygen Delivery Nasal Cannula Oxygen Flow Rate 2 Fraction of Inspired Oxygen 04/07/25 11:07 Temperature Pulse Rate 131 H Respiratory Rate Blood Pressure 116/80 Pulse Oximetry Oxygen Delivery Oxygen Flow Rate Fraction of Inspired Oxygen Exam Const: General: comfortable, no acute distress, alert and awake Orientation/consciousness: patient oriented x3 HENMT: Head: normal to inspection Eyes: General: appearance normal, both eyes and all related structures Pupils: Equal, round and reactive pupils present Neck: Neck: normal visual inspection, supple and no JVD Carotids: normal carotid upstroke Resp: Effort & Inspection: normal respiratory effort Auscultation: clear to auscultation bilaterally Other: On supplemental oxygen per nasal cannula Cardio: Rate: tachycardic Rhythm: abnormal rhythm irregularly irregular Heart sounds: S1 normal heart sound present, S2 normal heart sound present and no murmurs GI: Auscultation: normal bowel sounds Skin: General skin exam: normal color Neuro: General: patient oriented x3 Cranial nerves: Yes Equal, round and reactive pupils present Extrem: General: normal to inspection Psych: Appearance: grossly normal Mental Status: mental status grossly normal Results Labs and Meds 04/07/25 03:47 04/07/25 03:47 Lab results: CBC 04/07/25 Range/Units 03:47 WBC 10.0 (4.5-10.0) K/mm3 RBC 4.32 (4.2-5.4) M/mm3 Hgb 11.9 L (12.0-15.0) g/dL Hct 37.7 (37.0-47.0) % Plt Count 147 L (150-375) k/mm3 Lymph # (Auto) 0.53 L (0.9-3.2) K/mm3 Z[place]ala # (Auto) 0.2 (0.1-0.6) K/mm3 Eos # (Auto) 0.0 (0-0.3) K/mm3 Baso # (Auto) 0.0 (0.0-0.1) K/mm3 Comprehensive Metabolic Panel 04/07/25 Range/Units 03:47 Sodium 136 L (137-145) mmol/L Potassium 3.8 (3.4-5.0) mmol/L Chloride 105 (98-107) mmol/L Carbon Dioxide 23 (22-30) mmol/L BUN 19 H (7-17) mg/dL Creatinine 1.29 H (0.7-1.0) mg/dL Glucose 135 H (65-110) mg/dL Calcium 9.5 (8.4-10.2) mg/dL Intake and Output 04/06/25 04/07/25 04/07/25 23:59 07:59 15:59 Intake Total 720 240 Output Total 800 400 Balance -80 -400 240 Intake: IV 330 dilTIAZem 100 MG/100 ML 100 mg 30 In 100 ml @ 15 MG/HR 15 mls/hr IV CONT .Q6H40M [facility] Rx#: [id number] Azithromycin IV 500 mg In 250 Sodium Chloride 0.9% IV 250 ml @ 250 mls/hr IVPB Q24H [facility] Rx#: [id number] cefTRIAXone 1 gm In Sodium 50 Chloride 0.9% IV 50 ml @ 100 mls/hr IVPB Q24H [facility] Rx#: [id number] Oral 390 240 Output: Urine 800 Catheter Urine 400 External/Condom 400 Other: # Unmeasured Voids 1 # Incontinent Voids 1 Number of Bowel Movements Today 0 0 Patient Weight 04/07/25 23:59 Weight 57.8 kg
[2025-04-07] MEDS: cefTRIAXone 1 GM in SODIUM CHLORIDE 0.9% IV 50 ML 100 ML IVPB (16:56)
[2025-04-07] MEDS: AZITHROMYCIN IV 500 MG in SODIUM CHLORIDE 0.9% IV 250 ML IVPB (17:30)
[2025-04-07] MEDS: SIMVASTATIN 10 MG TABLET PO (17:32)
[2025-04-07] MEDS: METOPROLOL TARTRATE 50 MG TAB 100 MG PO (20:16)
[2025-04-07] MEDS: LATANOPROST 0.005% OP SOLN 2.5 ML BTL 1 DROP EACH EYE (20:17)
[2025-04-07] MEDS: cycloSPORINE 0.4 ML OPHTH SOLUTION 1 DROP EACH EYE (20:17)
[2025-04-07] MEDS: dilTIAZem 100 MG/100 ML 100 MG/100 ML BAG 10 MG IV CONT (22:53)
[2025-04-08] VITALS (22 sets, daily range): BP systolic 92–119; BP diastolic 52–77; PULSE 81–148; RESP 16–98; TEMP 36.3–36.8; O2SAT 62–97
[2025-04-08] MEDS: dilTIAZem 100 MG/100 ML 100 MG/100 ML BAG 10 MG IV CONT (02:02)
[2025-04-08] MEDS: IPRATROPIUM 0.5 MG/ALBUTEROL SULFATE 2.5 MG (BASE) AMPUL.NEB 3 ML INHALATION (02:33)
[2025-04-08 04:22] LABS: Hematocrit 36.3 % (37.0-47.0); Hemoglobin 11.3 g/dL (12.0-15.0); Immature Granulocyte Percent A 0.6 % (0-0.5); Lymphocytes Absolute Auto 0.52 K/mm3 (0.9-3.2); Mean Corpuscular HGB Conc 31.1 g/dl (32-36); Mean Corpuscular Hemoglobin 27.2 pg (26-34); Mean Corpuscular Volume 87.5 fl (80-100); Nucleated Red Blood Cells Absolute Auto 0.000 K/mm3 (0.0-0.012); Nucleated Red Blood Cells Perc 0.0 % (0.0-0.2); Platelet Count Result 163 k/mm3 (150-375); Red Blood Count 4.15 M/mm3 (4.2-5.4); White Blood Count 9.6 K/mm3 (4.5-10.0)
[2025-04-08 04:52] LABS: Alanine Aminotransferase 15 U/L (6-35); Albumin Level 3.9 g/dL (3.5-5.1); Alkaline Phosphatase 55 U/L (38-126); Anion Gap 9 mmol/L (4-12); Aspartate Amino Transferase 20 U/L (14-36); Bilirubin,Total 0.5 mg/dL (0.2-1.3); Blood Urea Nitrogen 29 mg/dL (7-17); Calcium 8.7 mg/dL (8.4-10.2); Carbon Dioxide 22 mmol/L (22-30); Chloride 104 mmol/L (98-107); Estimated CRCL calculation 23 ml/min; Estimated Glomerular Filt Rate 47; Glucose 126 mg/dL (65-110); Magnesium 2.1 mg/dL (1.6-2.3); Potassium 3.6 mmol/L (3.4-5.0); Sodium 135 mmol/L (137-145); Total Protein 7.2 g/dL (6.3-8.2)
--- NOTE | 2025-04-08 08:29 | P.PNIM_ITS ---
Assessment and Plan Assessment and Plan (1) Acute and chronic respiratory failure: Qualifiers: Respiratory failure complication: hypoxia Qualified Code(s): J96.21 - Acute and chronic respiratory failure with hypoxia Code(s): J96.20 - Acute and chronic respiratory failure, unspecified whether with hypoxia or hypercapnia Status: Acute Assessment and Plan: At baseline patient has chronic respiratory failure and utilizes home O2 as needed (typically when using the stairs or in the shower) and HS. Per EMS, patient 80% on room air upon their arrival. Maintaining O2 sats with 4 L nasal cannula, however due to work of breathing was placed on BiPAP. Workup concerning for pneumonia, CHF exacerbation, and AFib RVR. New hypoxia likely multifactorial due to the aforementioned. - BiPAP initiated on 04/06, continue inpatient for work of breathing - reviewed initial ABG, no significant abnormalities - started on broad-spectrum antibiotics for CAP - XR concerning for pulmonary edema and pneumonia, plan for diuresis - continue supplemental oxygen to maintain O2 sat greater than 92% - patient additionally has underlying COPD, DuoNeb scheduled and initiation of steroids (2) Atrial fibrillation with rapid ventricular response: Code(s): I48.91 - Unspecified atrial fibrillation Status: Acute Assessment and Plan: Initially EKG concerning for atrial flutter/tachycardia with RVR, rate 133. Initial heart rate upon arrival in the 140s. Patient has history of AFib on metoprolol and Eliquis. Suspect flare due to acute illness. - started on diltiazem gtt on 04/06, currently requiring 15 mg/hr - updating echo - TSH 0.302 with normal free T4 recheck as outpatient basis - continue Eliquis - consult cardiology Restarted diltiazem drip. Restart metoprolol. Increase diltiazem 15 milligram/hour Echo with normal EF (3) Sepsis: Qualifiers: Sepsis type: sepsis due to unspecified organism Sepsis acute organ dysfunction status: with acute organ dysfunction Severe sepsis acute organ dysfunction type: acute respiratory failure Acute respiratory failure type: with hypoxia Severe sepsis shock status: without septic shock Qualified Code(s): A41.9 - Sepsis, unspecified organism; R65.20 - Severe sepsis without septic shock; J96.01 - Acute respiratory failure with hypoxia Code(s): A41.9 - Sepsis, unspecified organism Status: Acute Assessment and Plan: Patient met SIRS criteria due to heart rate and tachypnea. However heart rate secondary to AFib/atrial flutter. However, patient does have suspected source - > pneumonia and has been reporting congestion/cough/shortness of breath. +hypoxia. Patient also found to be febrile, 100.5? F. - follow blood culture - lactic acid normal - current concern for CHF exacerbation, will hold on further IV fluids at this time. Was given a 1L bolus in the ED. (4) Congestive heart failure: Qualifiers: Heart failure chronicity: acute on chronic Heart failure type: unspecified Qualified Code(s): I50.9 - Heart failure, unspecified Code(s): I50.9 - Heart failure, unspecified Status: Acute Assessment and Plan: Reporting suggestive shortness of breath, new hypoxia. CXR from 04/06 concerning for pulmonary edema. BNP additionally elevated at 8130. History of CHF, currently acute on chronic. No previous echo on file. - update echo - Lasix 40 mg IV daily, hold home Torsemide 20 mg daily - monitor I&Os daily weights - trend renal function On chronic midodrine therapy (5) Pneumonia: Qualifiers: Pneumonia type: due to unspecified organism Laterality: bilateral Lung location: unspecified part of lung Qualified Code(s): J18.9 - Pneumonia, unspecified organism Code(s): J18.9 - Pneumonia, unspecified organism Status: Acute Assessment and Plan: CXR concerning for interstitial pulmonary edema and/or multifocal airspace disease. Patient has elevated BN P making CHF exacerbation likely, however she is additionally reporting congestion/cough/diarrhea which increases suspicion for viral illness/subsequent pneumonia. WBC 9.2 upon admission. Patient did have an elevated heart rate and tachypneic, meeting SIRS/sepsis criteria. - started on ceftriaxone and azithromycin on 04/06 - Tessalon Perles, guaifenesin/codeine p.r.n. for cough, DuoNebs delmis -influenza RSV COVID swab negative (6) COPD (chronic obstructive pulmonary disease): Qualifiers: COPD type: unspecified COPD Qualified Code(s): J44.9 - Chronic obstructive pulmonary disease, unspecified Code(s): J44.9 - Chronic obstructive pulmonary disease, unspecified Status: Chronic Assessment and Plan: - DuoNebs delmis - prednisone 40 mg x 5 days - continue home maintenance medications Plan 89 y/o F with PMH of Afib, COPD, chronic respiratory failure on supplemental O2 p.r.n. and HS, HTN, HLD, RA, and CHF presents here with shortness of breath. The patient presents here from home via EMS on 04/06 for further evaluation of shortness of breath. She reports onset of dyspnea approximately 2 days ago. Shortness of breath has been progressive. She then developed cough, congestion, nausea with dry heaving but no vomiting, chills, and diarrhea yesterday (04/05). She has been utilizing her home breathing treatments with minimal relief. No new symptoms today. Denies chest pain, palpitations, lower extremity swelling, or weight gain. She is on supplemental O2 as needed (typically used when taking the stairs or when taking a shower) and at night as needed - 2L NC. Per EMS, upon arrival the patient was 80% on room air and was subsequently placed on 4L NC and given a DuoNeb. She arrived 94% on 4L. Initial VS at presentation: 98.6? F, HR 141, RR 27, 133/86, and 94% on 4L nasal cannula. ED workup showed: No leukocytosis, no anemia, initial ABG showed a mildly reduced CO2 level, mildly reduced O2 level, with no acidosis/alkalosis, creatinine 1.09 and GFR 47, glucose 115, BNP 8130. EKG showed atrial flutter/tachycardia with RVR, left axis deviation, possible right ventricular conduction delay, delayed precordial R/S transition, borderline ST-T-wave abnormality lateral/high leads. CXR showed interstitial pulmonary edema and or multifocal airspace disease. Diet: Heart healthy DVT Prophylaxis: Eliquis IV fluids: 1L bolus, now diuresing Lines/Tubes: pIV Code Status: full code Subjective Date/time seen: 04/08/25 08:29 Interval history: No overnight events. Patient feels okay. Denies any chest pain or shortness of breath. Has not ambulated. AFib remains in RVR diltiazem at 10 mg per hour Review of Systems Review of Systems: All systems reviewed & are unremarkable except as noted in HPI and below Exam Narrative: APPEARANCE: Well-appearing not in acute distress HEAD: normocephalic, atraumatic. EYES: PERRLA/EOMI, conjunctivae clear. NOSE: Normal no drainage NECK: Supple. No adenopathy, no masses. RESPIRATORY: Airway patent, respirations nonlabored. Clear to auscultation bilaterally, no rales, rhonchi, wheezing. CARDIOVASCULAR: Tachycardia AFib with RVR on telemetry ABDOMINAL: Soft, nontender, nondistended, normal bowel sounds MUSCULOSKELETAL: Moves all extremities. Strength/ROM intact, No edema, No calf tenderness. NEURO: Alert. Cranial nerves II through XII intact. Good gait. Good coordination SKIN: Warm, dry. Normal Color Objective Data Vital Signs Vital Signs: Vital Signs - 24 hr 04/07/25 08:57 04/07/25 09:00 04/07/25 10:00 Temperature Pulse Rate 147 H 146 H 137 H Respiratory Rate Blood Pressure Pulse Oximetry Oxygen Delivery Oxygen Flow Rate 04/07/25 11:07 04/07/25 12:00 04/07/25 12:00 Temperature 98.8 F Pulse Rate 131 H 124 H 103 H Respiratory Rate 28 H Blood Pressure 116/80 105/64 Pulse Oximetry 94 Oxygen Delivery Oxygen Flow Rate 04/07/25 13:33 04/07/25 14:00 04/07/25 14:15 Temperature Pulse Rate 107 H 118 H 103 H Respiratory Rate 20 Blood Pressure 121/80 Pulse Oximetry 95 Oxygen Delivery Nasal Cannula Oxygen Flow Rate 2 04/07/25 14:15 04/07/25 14:25 04/07/25 15:45 Temperature Pulse Rate 103 H 123 H 123 H Respiratory Rate 20 20 Blood Pressure 115/60 Pulse Oximetry Oxygen Delivery Oxygen Flow Rate 04/07/25 16:00 04/07/25 16:00 04/07/25 18:00 Temperature 98.1 F Pulse Rate 73 74 116 H Respiratory Rate 20 Blood Pressure 115/60 Pulse Oximetry 95 Oxygen Delivery Oxygen Flow Rate 04/07/25 19:16 04/07/25 20:00 04/07/25 20:00 Temperature 97.9 F Pulse Rate 116 H 131 H 138 H Respiratory Rate 18 20 Blood Pressure 118/72 101/76 Pulse Oximetry 98 96 Oxygen Delivery Nasal Cannula Oxygen Flow Rate 2 04/07/25 20:00 04/07/25 20:39 04/07/25 20:44 Temperature Pulse Rate 108 H 127 H Respiratory Rate 20 Blood Pressure Pulse Oximetry 95 Oxygen Delivery Nasal Cannula Oxygen Flow Rate 2 04/07/25 20:47 04/07/25 22:00 04/07/25 22:53 Temperature Pulse Rate 138 H 118 H 142 H Respiratory Rate 20 Blood Pressure 112/76 Pulse Oximetry Oxygen Delivery Oxygen Flow Rate 04/08/25 00:00 04/08/25 00:00 04/08/25 00:00 Temperature 97.6 F Pulse Rate 110 H 110 H 118 H Respiratory Rate 20 20 Blood Pressure 103/69 Pulse Oximetry 97 97 Oxygen Delivery Nasal Cannula Oxygen Flow Rate 2 04/08/25 02:00 04/08/25 02:02 04/08/25 02:02 Temperature Pulse Rate 112 H 122 H 122 H Respiratory Rate Blood Pressure 115/72 115/72 Pulse Oximetry Oxygen Delivery Oxygen Flow Rate 04/08/25 02:33 04/08/25 02:41 04/08/25 04:00 Temperature Pulse Rate 126 H 115 H 115 H Respiratory Rate 20 20 20 Blood Pressure Pulse Oximetry 97 Oxygen Delivery Nasal Cannula Oxygen Flow Rate 2 04/08/25 04:00 04/08/25 04:00 04/08/25 06:00 Temperature 98.1 F Pulse Rate 137 H 137 H 119 H Respiratory Rate 18 Blood Pressure 113/77 Pulse Oximetry 96 Oxygen Delivery Oxygen Flow Rate 04/08/25 08:05 Temperature Pulse Rate 133 H Respiratory Rate Blood Pressure 119/74 Pulse Oximetry Oxygen Delivery Oxygen Flow Rate Intake/Output Intake/Output: Intake & Output 04/05/25 04/06/25 04/07/25 04/08/25 23:59 23:59 23:59 23:59 Intake Total 1773.9 1060.8 442.0 Output Total 1150 900 450 Balance 623.9 160.8 -8.0 Meds/Results Medications: Active Medications Generic Name Dose Route Start Last Admin Trade Name Freq PRN Reason Stop Dose Admin Acetaminophen 1,000 mg 04/06/25 13:57 Acetaminophen 500 Mg Tablet PO Q6H PRN PAIN RATED 4-6 Albuterol/Ipratropium 3 ml 04/06/25 14:00 04/08/25 02:33 Ipratropium 0.5 Mg/Albuterol Sulfate 2.5 Mg (Base) Ampul.Neb 3 Ml INHALATION 3 ml Q6HRT DELMIS Administration Apixaban 2.5 mg 04/06/25 21:00 04/07/25 20:16 Apixaban 2.5 Mg Tablet PO 2.5 mg Q12HR DELMIS Administration Artificial Tears 1 drop 04/06/25 14:20 Artificial Tears Ophth Soln 15 Ml Bottle EACH EYE Q6H PRN Dry Eye(s) Benzonatate 100 mg 04/06/25 14:06 Benzonatate 100 Mg Capsule PO TID PRN Cough Calcium Carbonate 500 mg 04/06/25 14:20 04/07/25 08:38 Calcium/Vitamin D 500 Mg/5 Mcg (200 I.U.) Tablet PO 500 mg DAILY DELMIS Administration Cyclosporine 1 drop 04/06/25 21:00 04/07/25 20:17 Cyclosporine 0.4 Ml Ophth Solution EACH EYE 1 drop QHS DELMIS Administration Diclofenac Sodium 0 applic 04/06/25 14:06 Diclofenac Sodium 1% 100 Gm Gel (*Bkc) TOPICAL QID PRN joint pain Diphenhydramine HCl 25 mg 04/06/25 13:57 Diphenhydramine Hcl Cap 25 Mg Capsule PO Q6H PRN allergy symptoms Empagliflozin 10 mg 04/06/25 14:20 04/07/25 08:38 Empagliflozin 10 Mg Tablet PO 10 mg DAILY DELMIS Administration Ferrous Sulfate 325 mg 04/07/25 09:00 04/07/25 08:51 Ferrous Sulfate 325 Mg Tablet PO 325 mg MoWeFr@[id number] DELMIS Administration Furosemide 40 mg 04/07/25 09:00 04/07/25 08:39 Furosemide Inj 40 Mg/4 Ml Vial IV PUSH 40 mg DAILY DELMIS Administration Guaifenesin/Codeine Phosphate 10 ml 04/06/25 13:57 Guaifenesin/Codeine (*Crx) 200/20 Mg 10 Ml Syrup PO Q4-6H PRN Cough Ceftriaxone Sodium 1 gm/ 50 mls @ 100 mls/hr 04/06/25 15:00 04/07/25 17:29 Sodium Chloride IVPB Infused Q24H DELMIS Infusion Azithromycin 500 mg/ Sodium 250 mls @ 250 mls/hr 04/06/25 15:00 04/07/25 18:30 Chloride IVPB 04/10/25 15:59 Infused Q24H DELMIS Infusion Diltiazem HCl 100 mg in 100 mls @ 15 mls/hr 04/07/25 22:40 04/08/25 08:05 Cardizem 100 Mg/100 Ml IV CONT 15 mg/hr .Q6H40M DELMIS 15 mls/hr 15 MG/HR Infusion Lactobacillus Acidophilus 1 tablet 04/07/25 09:00 04/07/25 08:39 Acidophilus/Bulgaricus Chewable Tablet PO 1 tablet DAILY DELMIS Administration Latanoprost 1 drop 04/06/25 21:00 04/07/25 20:17 Latanoprost 0.005% Op Soln 2.5 Ml Btl EACH EYE 1 drop QHS DELMIS Administration Metoprolol Tartrate 50 mg 04/07/25 08:50 04/07/25 09:00 Metoprolol Tartrate 50 Mg Tab PO 50 mg DAILY DELMIS Administration Metoprolol Tartrate 100 mg 04/07/25 21:00 04/07/25 20:16 Metoprolol Tartrate 50 Mg Tab PO 100 mg HS DELMIS Administration Midodrine 10 mg 04/06/25 14:20 04/07/25 08:39 Midodrine Hcl 10 Mg Tablet PO 10 mg DAILY DELMIS Administration Miscellaneous Information 1 each 04/07/25 00:01 04/08/25 01:07 Adempas Is Nonform; Can Pt Use From Home? XX 05/07/25 00:00 Not Given CLARIFY DELMIS Miscellaneous Information 1 each 04/07/25 00:01 04/08/25 01:07 Uptravi Is Nonform; Can Pt Use From Home? XX 05/07/25 00:00 Not Given CLARIFY DELMIS Non-Formulary Medication 1 mg 04/06/25 17:00 Riociguat [Adempas] PO 05/06/25 16:59 TID DELMIS Non-Formulary Medication 800 mcg 04/06/25 17:00 Selexipag [Uptravi] PO 05/06/25 16:59 BID DELMIS Pantoprazole Sodium 40 mg 04/06/25 14:20 04/07/25 08:39 Pantoprazole 40 Mg Tablet PO 40 mg QAM DELMIS Administration Perflutren Lipid Microsphere 0 ml 04/06/25 14:00 Perflutren Lipid Microspheres 1.5 Ml Vial Diluted To 10 Ml Total Volume IV PUSH 04/09/25 14:00 ONCE PRN adequate visualization Protocol Potassium Chloride 20 meq 04/06/25 14:20 04/07/25 08:37 Potassium Chloride 20 Meq Er Tablet PO 20 meq DAILY DELMIS Administration Prednisone 40 mg 04/06/25 14:05 04/07/25 08:38 Prednisone 20 Mg Tablet PO 04/10/25 08:01 40 mg DAILY@0800 DELMIS Administration Fluticasone/Salmeterol 2 puff 04/06/25 20:00 04/07/25 20:38 Fluticasone/Salmeterol 115-21 Mcg Inhaler 1 Puff INHALATION 2 puff Q12HRT DELMIS Administration Sertraline HCl 50 mg 04/06/25 14:20 04/07/25 08:38 Sertraline Hcl 50 Mg Tablet PO 50 mg DAILY DELMIS Administration Simvastatin 10 mg 04/06/25 18:00 04/07/25 17:32 Simvastatin 10 Mg Tablet PO 10 mg QPM DELMIS Administration Umeclidinium [place] 1 puff 04/07/25 08:00 04/07/25 09:37 Umeclidinium [place] 62.5 Mcg Ellipta INHALATION 1 puff DAILYRT DELMIS Administration Radiology Results: ITS Impressions Chest X-Ray 04/06/25 10:27 IMPRESSION: 1. Interstitial pulmonary edema and/or multifocal airspace disease. Labs Labs: Laboratory Results - last 24 hr 04/08/25 03:52 WBC 9.6 RBC 4.15 L Hgb 11.3 L Hct 36.3 L MCV 87.5 MCH 27.2 MCHC 31.1 L RDW 16.7 H Plt Count 163 MPV 11.2 H Immature Gran % (Auto) 0.6 H Neut % (Auto) 89.4 H Lymph % (Auto) 5.4 L [place] % (Auto) 4.5 Eos % (Auto) 0.0 Baso % (Auto) 0.1 L Lymph # (Auto) 0.52 L [place] # (Auto) 0.4 Eos # (Auto) 0.0 Baso # (Auto) 0.0 Abs Immat Gran (auto) 0.06 H Absolute Neuts (auto) 8.6 H Absolute Nucleated RBC 0.000 Nucleated RBC % 0.0 Sodium 135 L Potassium 3.6 Chloride 104 Carbon Dioxide 22 Anion Gap 9 BUN 29 H D Creatinine 1.09 H Estim Creat Clear Calc 23 Estimated GFR 47 L Glucose 126 H Calcium 8.7 Magnesium 2.1 Total Bilirubin 0.5 AST 20 ALT 15 Alkaline Phosphatase 55 Total Protein 7.2 Albumin 3.9
--- NOTE | 2025-04-08 09:15 | P.PNCA_ITS ---
Progress Note: A&P Assessment and Plan (1) Atrial fibrillation with rapid ventricular response: Code(s): I48.91 - Unspecified atrial fibrillation Status: Acute Assessment and Plan: She has paroxysmal atrial fibrillation, now has atrial flutter with rapid ventricular response in the setting of acute illness with pneumonia, COPD exacerbation. * Continue rate control with diltiazem drip, has been increased to15 milligrams/hour, with somewhat limited rate control * Continue metoprolol at 150 mg daily * will stop duo nebs and change to atrovent alone * Continue anticoagulation with apixaban 2.5 mg p.o. b.i.d. * Echocardiogram demonstrates EF of 60-65% with moderate TR * Check and replace electrolytes with goals K + 4.0, magnesium 2.0, will give additional potassium today and check magnesium level (2) Acute and chronic respiratory failure: Qualifiers: Respiratory failure complication: hypoxia Qualified Code(s): J96.21 - Acute and chronic respiratory failure with hypoxia Code(s): J96.20 - Acute and chronic respiratory failure, unspecified whether with hypoxia or hypercapnia Status: Acute Assessment and Plan: Secondary to COPD exacerbation, pneumonia (3) Pneumonia: Qualifiers: Pneumonia type: due to unspecified organism Laterality: bilateral Lung location: unspecified part of lung Qualified Code(s): J18.9 - Pneumonia, unspecified organism Code(s): J18.9 - Pneumonia, unspecified organism Status: Acute Assessment and Plan: Management per hospitalist (4) COPD (chronic obstructive pulmonary disease): Qualifiers: COPD type: unspecified COPD Qualified Code(s): J44.9 - Chronic obstructive pulmonary disease, unspecified Code(s): J44.9 - Chronic obstructive pulmonary disease, unspecified Status: Chronic Assessment and Plan: Management per hospitalist (5) Congestive heart failure: Qualifiers: Heart failure chronicity: acute on chronic Heart failure type: unspecified Qualified Code(s): I50.9 - Heart failure, unspecified Code(s): I50.9 - Heart failure, unspecified Status: Acute Assessment and Plan: Appears euvolemic on exam. Did have some pulmonary edema on CXR. Continue with IV furosemide 40mg daily for now. Will update pBNP and CXR in am and likely transition to oral (6) Hypotension: Code(s): I95.9 - Hypotension, unspecified Status: Acute Assessment and Plan: * BP stable at this time * she is on her home midodrine 10 mg daily * will continue to monitor with rate lowering agents Plan * give additional K today * check CXR and pBNP in am * change duo nebs to atrovent alone secondary to tachycardia * Will check magnesium level as well Subjective Date/time seen: 04/08/25 09:15 Interval history: Date of Service 04/08/25-Patient is sitting up in bed, her is at the bedside, she is feeling improved. Denies any chest pain or pressure. Shortness of breath is improved as well. No palpitations. Review of Systems Review of Systems: All systems reviewed & are unremarkable except as noted in HPI and below Exam Const: General: comfortable; No no acute distress Eyes: Sclera: sclerae normal Neck: Neck: No no JVD Thyroid: thyroid normal Resp: Effort & Inspection: normal respiratory effort Auscultation: clear to auscultation bilaterally Cardio: Rate: tachycardic Rhythm: abnormal rhythm Heart sounds: no gallops, no murmurs and no rubs Neuro: Speech: normal speech Extrem: General: normal to inspection and no edema Psych: Mental Status: mental status grossly normal Objective Data Vital Signs Vital Signs: Vital Signs - 24 hr 04/07/25 10:00 04/07/25 11:07 04/07/25 12:00 Temperature 37.1 C Pulse Rate 137 H 131 H 124 H Respiratory Rate 28 H Blood Pressure 116/80 105/64 Pulse Oximetry 94 Oxygen Delivery Oxygen Flow Rate 04/07/25 12:00 04/07/25 13:33 04/07/25 14:00 Temperature Pulse Rate 103 H 107 H 118 H Respiratory Rate Blood Pressure 121/80 Pulse Oximetry Oxygen Delivery Oxygen Flow Rate 04/07/25 14:15 04/07/25 14:15 04/07/25 14:25 Temperature Pulse Rate 103 H 103 H 123 H Respiratory Rate 20 20 20 Blood Pressure Pulse Oximetry 95 Oxygen Delivery Nasal Cannula Oxygen Flow Rate 2 04/07/25 15:45 04/07/25 16:00 04/07/25 16:00 Temperature 36.7 C Pulse Rate 123 H 73 74 Respiratory Rate 20 Blood Pressure 115/60 115/60 Pulse Oximetry 95 Oxygen Delivery Oxygen Flow Rate 04/07/25 18:00 04/07/25 19:16 04/07/25 20:00 Temperature 36.6 C Pulse Rate 116 H 116 H 131 H Respiratory Rate 18 Blood Pressure 118/72 101/76 Pulse Oximetry 98 Oxygen Delivery Oxygen Flow Rate 04/07/25 20:00 04/07/25 20:00 04/07/25 20:39 Temperature Pulse Rate 138 H 108 H 127 H Respiratory Rate 20 20 Blood Pressure Pulse Oximetry 96 Oxygen Delivery Nasal Cannula Oxygen Flow Rate 2 04/07/25 20:44 04/07/25 20:47 04/07/25 22:00 Temperature Pulse Rate 138 H 118 H Respiratory Rate 20 Blood Pressure Pulse Oximetry 95 Oxygen Delivery Nasal Cannula Oxygen Flow Rate 2 04/07/25 22:53 04/08/25 00:00 04/08/25 00:00 Temperature 36.4 C Pulse Rate 142 H 110 H 110 H Respiratory Rate 20 20 Blood Pressure 112/76 103/69 Pulse Oximetry 97 97 Oxygen Delivery Nasal Cannula Oxygen Flow Rate 2 04/08/25 00:00 04/08/25 02:00 04/08/25 02:02 Temperature Pulse Rate 118 H 112 H 122 H Respiratory Rate Blood Pressure 115/72 Pulse Oximetry Oxygen Delivery Oxygen Flow Rate 04/08/25 02:02 04/08/25 02:33 04/08/25 02:41 Temperature Pulse Rate 122 H 126 H 115 H Respiratory Rate 20 20 Blood Pressure 115/72 Pulse Oximetry Oxygen Delivery Oxygen Flow Rate 04/08/25 04:00 04/08/25 04:00 04/08/25 04:00 Temperature 36.7 C Pulse Rate 115 H 137 H 137 H Respiratory Rate 20 18 Blood Pressure 113/77 Pulse Oximetry 97 96 Oxygen Delivery Nasal Cannula Oxygen Flow Rate 2 04/08/25 06:00 04/08/25 08:00 04/08/25 08:05 Temperature 36.4 C Pulse Rate 119 H 122 H 133 H Respiratory Rate 20 Blood Pressure 119/74 119/74 Pulse Oximetry 96 Oxygen Delivery Oxygen Flow Rate Intake/Output Intake/Output: Intake & Output 04/05/25 04/06/25 04/07/25 04/08/25 23:59 23:59 23:59 23:59 Intake Total 1773.9 1060.8 562.0 Output Total 1150 900 450 Balance 623.9 160.8 112.0 Meds/Results Medications: Active Medications Generic Name Dose Route Start Last Admin Trade Name Freq PRN Reason Stop Dose Admin Acetaminophen 1,000 mg 04/06/25 13:57 Acetaminophen 500 Mg Tablet PO Q6H PRN PAIN RATED 4-6 Apixaban 2.5 mg 04/06/25 21:00 04/07/25 20:16 Apixaban 2.5 Mg Tablet PO 2.5 mg Q12HR MALINDA Administration Artificial Tears 1 drop 04/06/25 14:20 Artificial Tears Ophth Soln 15 Ml Bottle EACH EYE Q6H PRN Dry Eye(s) Benzonatate 100 mg 04/06/25 14:06 Benzonatate 100 Mg Capsule PO TID PRN Cough Calcium Carbonate 500 mg 04/06/25 14:20 04/07/25 08:38 Calcium/Vitamin D 500 Mg/5 Mcg (200 I.U.) Tablet PO 500 mg DAILY MALINDA Administration Cyclosporine 1 drop 04/06/25 21:00 04/07/25 20:17 Cyclosporine 0.4 Ml Ophth Solution EACH EYE 1 drop QHS MALINDA Administration Diclofenac Sodium 0 applic 04/06/25 14:06 Diclofenac Sodium 1% 100 Gm Gel (*Bkc) TOPICAL QID PRN joint pain Diphenhydramine HCl 25 mg 04/06/25 13:57 Diphenhydramine Hcl Cap 25 Mg Capsule PO Q6H PRN allergy symptoms Empagliflozin 10 mg 04/06/25 14:20 04/07/25 08:38 Empagliflozin 10 Mg Tablet PO 10 mg DAILY MALINDA Administration Ferrous Sulfate 325 mg 04/07/25 09:00 04/07/25 08:51 Ferrous Sulfate 325 Mg Tablet PO 325 mg [id number] MALINDA Administration Furosemide 40 mg 04/07/25 09:00 04/07/25 08:39 Furosemide Inj 40 Mg/4 Ml Vial IV PUSH 40 mg DAILY MALINDA Administration Guaifenesin/Codeine Phosphate 10 ml 04/06/25 13:57 Guaifenesin/Codeine (*Crx) 200/20 Mg 10 Ml Syrup PO Q4-6H PRN Cough Ceftriaxone Sodium 1 gm/ 50 mls @ 100 mls/hr 04/06/25 15:00 04/07/25 17:29 Sodium Chloride IVPB Infused Q24H MALINDA Infusion Azithromycin 500 mg/ Sodium 250 mls @ 250 mls/hr 04/06/25 15:00 04/07/25 18:30 Chloride IVPB 04/10/25 15:59 Infused Q24H MALINDA Infusion Diltiazem HCl 100 mg in 100 mls @ 15 mls/hr 04/07/25 22:40 04/08/25 08:05 Cardizem 100 Mg/100 Ml IV CONT 15 mg/hr .Q6H40M MALINDA 15 mls/hr 15 MG/HR Infusion Lactobacillus Acidophilus 1 tablet 04/07/25 09:00 04/07/25 08:39 Acidophilus/Bulgaricus Chewable Tablet PO 1 tablet DAILY MALINDA Administration Latanoprost 1 drop 04/06/25 21:00 04/07/25 20:17 Latanoprost 0.005% Op Soln 2.5 Ml Btl EACH EYE 1 drop QHS MALINDA Administration Metoprolol Tartrate 50 mg 04/07/25 08:50 04/07/25 09:00 Metoprolol Tartrate 50 Mg Tab PO 50 mg DAILY MALINDA Administration Metoprolol Tartrate 100 mg 04/07/25 21:00 04/07/25 20:16 Metoprolol Tartrate 50 Mg Tab PO 100 mg HS MALINDA Administration Midodrine 10 mg 04/06/25 14:20 04/07/25 08:39 Midodrine Hcl 10 Mg Tablet PO 10 mg DAILY MALINDA Administration Miscellaneous Information 1 each 04/07/25 00:01 04/08/25 01:07 Adempas Is Nonform; Can Pt Use From Home? XX 05/07/25 00:00 Not Given CLARIFY MALINDA Miscellaneous Information 1 each 04/07/25 00:01 04/08/25 01:07 Uptravi Is Nonform; Can Pt Use From Home? XX 05/07/25 00:00 Not Given CLARIFY MALINDA Non-Formulary Medication 1 mg 04/06/25 17:00 Riociguat [Adempas] PO 05/06/25 16:59 TID MALINDA Non-Formulary Medication 800 mcg 04/06/25 17:00 Selexipag [Uptravi] PO 05/06/25 16:59 BID MALINDA Pantoprazole Sodium 40 mg 04/06/25 14:20 04/07/25 08:39 Pantoprazole 40 Mg Tablet PO 40 mg QAM MALINDA Administration Perflutren Lipid Microsphere 0 ml 04/06/25 14:00 Perflutren Lipid Microspheres 1.5 Ml Vial Diluted To 10 Ml Total Volume IV PUSH 04/09/25 14:00 ONCE PRN adequate visualization Protocol Potassium Chloride 20 meq 04/06/25 14:20 04/07/25 08:37 Potassium Chloride 20 Meq Er Tablet PO 20 meq DAILY MALINDA Administration Prednisone 40 mg 04/06/25 14:05 04/07/25 08:38 Prednisone 20 Mg Tablet PO 04/10/25 08:01 40 mg DAILY@0800 MALINDA Administration Fluticasone/Salmeterol 2 puff 04/06/25 20:00 04/07/25 20:38 Fluticasone/Salmeterol 115-21 Mcg Inhaler 1 Puff INHALATION 2 puff Q12HRT MALINDA Administration Sertraline HCl 50 mg 04/06/25 14:20 04/07/25 08:38 Sertraline Hcl 50 Mg Tablet PO 50 mg DAILY MALINDA Administration Simvastatin 10 mg 04/06/25 18:00 04/07/25 17:32 Simvastatin 10 Mg Tablet PO 10 mg QPM MALINDA Administration Umeclidinium Mildred 1 puff 04/07/25 08:00 04/07/25 09:37 Umeclidinium Mildred 62.5 Mcg Ellipta INHALATION 1 puff DAILYRT MALINDA Administration Radiology Results: ITS Impressions Chest X-Ray 04/06/25 10:27 IMPRESSION: 1. Interstitial pulmonary edema and/or multifocal airspace disease. Labs Labs: Laboratory Results - last 24 hr 04/08/25 03:52 WBC 9.6 RBC 4.15 L Hgb 11.3 L Hct 36.3 L MCV 87.5 MCH 27.2 MCHC 31.1 L RDW 16.7 H Plt Count 163 MPV 11.2 H Immature Gran % (Auto) 0.6 H Neut % (Auto) 89.4 H Lymph % (Auto) 5.4 L Branch % (Auto) 4.5 Eos % (Auto) 0.0 Baso % (Auto) 0.1 L Lymph # (Auto) 0.52 L Branch # (Auto) 0.4 Eos # (Auto) 0.0 Baso # (Auto) 0.0 Abs Immat Gran (auto) 0.06 H Absolute Neuts (auto) 8.6 H Absolute Nucleated RBC 0.000 Nucleated RBC % 0.0 Sodium 135 L Potassium 3.6 Chloride 104 Carbon Dioxide 22 Anion Gap 9 BUN 29 H D Creatinine 1.09 H Estim Creat Clear Calc 23 Estimated GFR 47 L Glucose 126 H Calcium 8.7 Magnesium 2.1 Total Bilirubin 0.5 AST 20 ALT 15 Alkaline Phosphatase 55 Total Protein 7.2 Albumin 3.9
[2025-04-08] MEDS: FLUTICASONE/SALMETEROL 115-21 MCG INHALER 1 PUFF 2 PUFF INHALATION ×2 (09:43→20:08)
[2025-04-08] MEDS: UMECLIDINIUM BROMIDE 62.5 MCG ELLIPTA 1 PUFF INHALATION (09:43)
[2025-04-08] MEDS: MIDODRINE HCL 10 MG TABLET PO (10:14)
[2025-04-08] MEDS: PANTOPRAZOLE 40 MG TABLET PO (10:14)
[2025-04-08] MEDS: SERTRALINE HCL 50 MG TABLET PO (10:14)
[2025-04-08] MEDS: METOPROLOL TARTRATE 50 MG TAB PO (10:14)
[2025-04-08] MEDS: POTASSIUM CHLORIDE 20 MEQ ER TABLET PO (10:15)
[2025-04-08] MEDS: EMPAGLIFLOZIN 10 MG TABLET PO (10:15)
[2025-04-08] MEDS: APIXABAN 2.5 MG TABLET PO ×2 (10:16→21:06)
[2025-04-08] MEDS: CALCIUM/VITAMIN D 500 MG/5 MCG (200 I.U.) TABLET PO (10:16)
[2025-04-08] MEDS: ACIDOPHILUS/BULGARICUS CHEWABLE TABLET 1 TABLET PO (10:17)
[2025-04-08] MEDS: dilTIAZem 100 MG/100 ML 100 MG/100 ML BAG 15 MG IV CONT ×3 (10:21→23:03)
[2025-04-08] MEDS: POTASSIUM CHLORIDE 20 MEQ ER TABLET 40 MEQ PO (12:03)
[2025-04-08] MEDS: FUROSEMIDE INJ 40 MG/4 ML VIAL IV PUSH (12:04)
[2025-04-08] MEDS: cefTRIAXone 1 GM in SODIUM CHLORIDE 0.9% IV 50 ML 100 ML IVPB (15:22)
[2025-04-08] MEDS: AZITHROMYCIN IV 500 MG in SODIUM CHLORIDE 0.9% IV 250 ML IVPB (15:22)
[2025-04-08] MEDS: SIMVASTATIN 10 MG TABLET PO (18:23)
[2025-04-08] MEDS: METOPROLOL TARTRATE 50 MG TAB 100 MG PO (21:06)
[2025-04-08] MEDS: cycloSPORINE 0.4 ML OPHTH SOLUTION 1 DROP EACH EYE (21:06)
[2025-04-09] VITALS (29 sets, daily range): BP systolic 92–109; BP diastolic 46–83; PULSE 72–129; RESP 18–24; TEMP 36.3–36.9; O2SAT 22–98
[2025-04-09 04:41] LABS: Hematocrit 36.1 % (37.0-47.0); Hemoglobin 11.1 g/dL (12.0-15.0); Immature Granulocyte Percent A 1.1 % (0-0.5); Lymphocytes Absolute Auto 0.47 K/mm3 (0.9-3.2); Mean Corpuscular HGB Conc 30.7 g/dl (32-36); Mean Corpuscular Hemoglobin 27.6 pg (26-34); Mean Corpuscular Volume 89.8 fl (80-100); Nucleated Red Blood Cells Absolute Auto 0.000 K/mm3 (0.0-0.012); Nucleated Red Blood Cells Perc 0.0 % (0.0-0.2); Platelet Count Result 191 k/mm3 (150-375); Red Blood Count 4.02 M/mm3 (4.2-5.4); White Blood Count 9.3 K/mm3 (4.5-10.0)
[2025-04-09 04:57] LABS: Alanine Aminotransferase 16 U/L (6-35); Albumin Level 3.6 g/dL (3.5-5.1); Alkaline Phosphatase 52 U/L (38-126); Anion Gap 8 mmol/L (4-12); Aspartate Amino Transferase 22 U/L (14-36); Bilirubin,Total 0.5 mg/dL (0.2-1.3); Blood Urea Nitrogen 31 mg/dL (7-17); Calcium 8.0 mg/dL (8.4-10.2); Carbon Dioxide 19 mmol/L (22-30); Chloride 108 mmol/L (98-107); Estimated CRCL calculation 26 ml/min; Estimated Glomerular Filt Rate 47; Glucose 107 mg/dL (65-110); Magnesium 2.3 mg/dL (1.6-2.3); Potassium 4.5 mmol/L (3.4-5.0); Sodium 135 mmol/L (137-145); Total Protein 6.6 g/dL (6.3-8.2)
[2025-04-09 05:01] LABS: NT Pro B Type Natriuretic Pept 6760 pg/mL (19.9-100)
[2025-04-09] MEDS: dilTIAZem 100 MG/100 ML 100 MG/100 ML BAG 15 MG IV CONT ×3 (05:37→19:00)
[2025-04-09] MEDS: FLUTICASONE/SALMETEROL 115-21 MCG INHALER 1 PUFF 2 PUFF INHALATION ×2 (07:26→20:31)
[2025-04-09] MEDS: UMECLIDINIUM BROMIDE 62.5 MCG ELLIPTA 1 PUFF INHALATION (07:27)
[2025-04-09] MEDS: CALCIUM/VITAMIN D 500 MG/5 MCG (200 I.U.) TABLET PO (08:08)
[2025-04-09] MEDS: EMPAGLIFLOZIN 10 MG TABLET PO (08:08)
[2025-04-09] MEDS: SERTRALINE HCL 50 MG TABLET PO (08:09)
[2025-04-09] MEDS: POTASSIUM CHLORIDE 20 MEQ ER TABLET PO (08:09)
[2025-04-09] MEDS: MIDODRINE HCL 10 MG TABLET PO (08:10)
[2025-04-09] MEDS: PANTOPRAZOLE 40 MG TABLET PO (08:11)
[2025-04-09] MEDS: FERROUS SULFATE 325 MG TABLET PO (08:12)
[2025-04-09] MEDS: ACIDOPHILUS/BULGARICUS CHEWABLE TABLET 1 TABLET PO (08:13)
[2025-04-09] MEDS: APIXABAN 2.5 MG TABLET PO ×2 (08:13→21:16)
[2025-04-09] MEDS: METOPROLOL TARTRATE 50 MG TAB PO (08:14)
[2025-04-09] MEDS: FUROSEMIDE INJ 40 MG/4 ML VIAL IV PUSH ×2 (08:14→18:07)
--- NOTE | 2025-04-09 08:30 | P.PNIM_ITS ---
Assessment and Plan Assessment and Plan (1) Acute and chronic respiratory failure: Qualifiers: Respiratory failure complication: hypoxia Qualified Code(s): J96.21 - Acute and chronic respiratory failure with hypoxia Code(s): J96.20 - Acute and chronic respiratory failure, unspecified whether with hypoxia or hypercapnia Status: Acute Assessment and Plan: At baseline patient has chronic respiratory failure and utilizes home O2 as needed (typically when using the stairs or in the shower) and HS. Per EMS, patient 80% on room air upon their arrival. Maintaining O2 sats with 4 L nasal cannula, however due to work of breathing was placed on BiPAP. Workup concerning for pneumonia, CHF exacerbation, and AFib RVR. New hypoxia likely multifactorial due to the aforementioned. - BiPAP initiated on 04/06, continue inpatient for work of breathing - reviewed initial ABG, no significant abnormalities - started on broad-spectrum antibiotics for CAP - XR concerning for pulmonary edema and pneumonia, plan for diuresis - continue supplemental oxygen to maintain O2 sat greater than 92% - patient additionally has underlying COPD, DuoNeb scheduled and initiation of steroids On prednisone 40 mg daily (2) Atrial fibrillation with rapid ventricular response: Code(s): I48.91 - Unspecified atrial fibrillation Status: Acute Assessment and Plan: Initially EKG concerning for atrial flutter/tachycardia with RVR, rate 133. Initial heart rate upon arrival in the 140s. Patient has history of AFib on metoprolol and Eliquis. Suspect flare due to acute illness. - started on diltiazem gtt on 04/06, currently requiring 15 mg/hr - updating echo - TSH 0.302 with normal free T4 recheck as outpatient basis - continue Eliquis - consult cardiology Restarted diltiazem drip. Restart metoprolol. Increased diltiazem 15 milligram/hour heart rate better Echo with normal EF Further care per Cardiology (3) Sepsis: Qualifiers: Sepsis type: sepsis due to unspecified organism Sepsis acute organ dysfunction status: with acute organ dysfunction Severe sepsis acute organ dysfunction type: acute respiratory failure Acute respiratory failure type: with hypoxia Severe sepsis shock status: without septic shock Qualified Code(s): A41.9 - Sepsis, unspecified organism; R65.20 - Severe sepsis without septic shock; J96.01 - Acute respiratory failure with hypoxia Code(s): A41.9 - Sepsis, unspecified organism Status: Acute Assessment and Plan: Patient met SIRS criteria due to heart rate and tachypnea. However heart rate secondary to AFib/atrial flutter. However, patient does have suspected source - > pneumonia and has been reporting congestion/cough/shortness of breath. +hypoxia. Patient also found to be febrile, 100.5? F. - follow blood culture - lactic acid normal - current concern for CHF exacerbation, will hold on further IV fluids at this time. Was given a 1L bolus in the ED. (4) Congestive heart failure: Qualifiers: Heart failure chronicity: acute on chronic Heart failure type: unspecified Qualified Code(s): I50.9 - Heart failure, unspecified Code(s): I50.9 - Heart failure, unspecified Status: Acute Assessment and Plan: Reporting suggestive shortness of breath, new hypoxia. CXR from 04/06 concerning for pulmonary edema. BNP additionally elevated at 8130. History of CHF, currently acute on chronic. No previous echo on file. - update echo - Lasix 40 mg IV daily, hold home Torsemide 20 mg daily - monitor I&Os daily weights - trend renal function On chronic midodrine therapy Chest x-ray with moderate pulmonary vascular congestion Continue diuresis with Lasix BNP repeat 6760 improved (5) Pneumonia: Qualifiers: Pneumonia type: due to unspecified organism Laterality: bilateral Lung location: unspecified part of lung Qualified Code(s): J18.9 - Pneumonia, unspecified organism Code(s): J18.9 - Pneumonia, unspecified organism Status: Acute Assessment and Plan: CXR concerning for interstitial pulmonary edema and/or multifocal airspace disease. Patient has elevated BN P making CHF exacerbation likely, however she is additionally reporting congestion/cough/diarrhea which increases suspicion for viral illness/subsequent pneumonia. WBC 9.2 upon admission. Patient did have an elevated heart rate and tachypneic, meeting SIRS/sepsis criteria. - started on ceftriaxone and azithromycin on 04/06 - Tessalon Perles, guaifenesin/codeine p.r.n. for cough, DuoNebs delmis -influenza RSV COVID swab negative Add Mucinex (6) COPD (chronic obstructive pulmonary disease): Qualifiers: COPD type: unspecified COPD Qualified Code(s): J44.9 - Chronic obstructive pulmonary disease, unspecified Code(s): J44.9 - Chronic obstructive pulmonary disease, unspecified Status: Chronic Assessment and Plan: - Merari delmis - prednisone 40 mg x 5 days - continue home maintenance medications Plan 89 y/o F with PMH of Afib, COPD, chronic respiratory failure on supplemental O2 p.r.n. and HS, HTN, HLD, RA, and CHF presents here with shortness of breath. The patient presents here from home via EMS on 04/06 for further evaluation of shortness of breath. She reports onset of dyspnea approximately 2 days ago. Shortness of breath has been progressive. She then developed cough, congestion, nausea with dry heaving but no vomiting, chills, and diarrhea yesterday (04/05). She has been utilizing her home breathing treatments with minimal relief. No new symptoms today. Denies chest pain, palpitations, lower extremity swelling, or weight gain. She is on supplemental O2 as needed (typically used when taking the stairs or when taking a shower) and at night as needed - 2L NC. Per EMS, upon arrival the patient was 80% on room air and was subsequently placed on 4L NC and given a DuoNeb. She arrived 94% on 4L. Initial VS at presentation: 98.6? F, HR 141, RR 27, 133/86, and 94% on 4L nasal cannula. ED workup showed: No leukocytosis, no anemia, initial ABG showed a mildly reduced CO2 level, mildly reduced O2 level, with no acidosis/alkalosis, creatinine 1.09 and GFR 47, glucose 115, BNP 8130. EKG showed atrial flutter/tachycardia with RVR, left axis deviation, possible right ventricular conduction delay, delayed precordial R/S transition, borderline ST-T-wave abnormality lateral/high leads. CXR showed interstitial pulmonary edema and or multifocal airspace disease. Diet: Heart healthy DVT Prophylaxis: Eliquis IV fluids: 1L bolus, now diuresing Lines/Tubes: pIV Code Status: full code Subjective Date/time seen: 04/09/25 08:30 Interval history: No overnight events. Patient remains on diltiazem 15 milligram/hour. Heart rate is better controlled. Coughing some phlegm. Feeling better. Has not ambulated. Review of Systems Review of Systems: All systems reviewed & are unremarkable except as noted in HPI and below Exam Narrative: APPEARANCE: Well-appearing not in acute distress HEAD: normocephalic, atraumatic. EYES: PERRLA/EOMI, conjunctivae clear. NOSE: Normal no drainage NECK: Supple. No adenopathy, no masses. RESPIRATORY: Airway patent, respirations nonlabored. Clear to auscultation bilaterally, no rales, rhonchi, wheezing. CARDIOVASCULAR: Tachycardia AFib with RVR on telemetry ABDOMINAL: Soft, nontender, nondistended, normal bowel sounds MUSCULOSKELETAL: Moves all extremities. Strength/ROM intact, No edema, No calf tenderness. NEURO: Alert. Cranial nerves II through XII intact. Good gait. Good coordination SKIN: Warm, dry. Normal Color Objective Data Vital Signs Vital Signs: Vital Signs - 24 hr 04/08/25 09:49 04/08/25 09:49 04/08/25 10:00 Temperature Pulse Rate 113 H 113 H 133 H Respiratory Rate 20 20 Blood Pressure 98/70 L Pulse Oximetry 94 94 Oxygen Delivery Room Air Oxygen Flow Rate Fraction of Inspired Oxygen 04/08/25 10:00 04/08/25 10:00 04/08/25 10:14 Temperature Pulse Rate 148 H 126 H 148 H Respiratory Rate Blood Pressure 98/70 L Pulse Oximetry Oxygen Delivery Oxygen Flow Rate Fraction of Inspired Oxygen 04/08/25 10:21 04/08/25 10:21 04/08/25 12:00 Temperature 97.4 F L Pulse Rate 132 H 132 H 111 H Respiratory Rate 20 Blood Pressure 98/70 L 111/73 Pulse Oximetry 95 Oxygen Delivery Oxygen Flow Rate Fraction of Inspired Oxygen 04/08/25 12:00 04/08/25 12:00 04/08/25 14:00 Temperature Pulse Rate 124 H 116 H 116 H Respiratory Rate Blood Pressure 111/73 94/56 L Pulse Oximetry Oxygen Delivery Oxygen Flow Rate Fraction of Inspired Oxygen 04/08/25 14:00 04/08/25 14:00 04/08/25 16:00 Temperature 98.2 F Pulse Rate 116 H 116 H 122 H Respiratory Rate 18 Blood Pressure 94/56 L 98/62 L Pulse Oximetry 92 Oxygen Delivery Oxygen Flow Rate Fraction of Inspired Oxygen 04/08/25 16:00 04/08/25 16:00 04/08/25 16:34 Temperature Pulse Rate 122 H 94 94 Respiratory Rate Blood Pressure 98/62 L 98/62 L Pulse Oximetry Oxygen Delivery Oxygen Flow Rate Fraction of Inspired Oxygen 04/08/25 18:00 04/08/25 18:00 04/08/25 18:00 Temperature Pulse Rate 88 88 86 Respiratory Rate 98 H Blood Pressure 98/62 L 93/55 L Pulse Oximetry 62 L Oxygen Delivery Oxygen Flow Rate Fraction of Inspired Oxygen 04/08/25 19:20 04/08/25 20:00 04/08/25 20:00 Temperature 97.5 F L Pulse Rate 81 92 106 H Respiratory Rate 16 22 H Blood Pressure 92/53 L 98/58 L Pulse Oximetry 93 94 Oxygen Delivery Room Air Oxygen Flow Rate Fraction of Inspired Oxygen 30 04/08/25 20:00 04/08/25 22:00 04/08/25 22:00 Temperature 97.8 F Pulse Rate 82 96 106 H Respiratory Rate 22 H Blood Pressure 94/62 L 98/52 L Pulse Oximetry 94 Oxygen Delivery Oxygen Flow Rate Fraction of Inspired Oxygen 04/08/25 22:00 04/08/25 23:03 04/08/25 23:03 Temperature Pulse Rate 112 H 95 95 Respiratory Rate Blood Pressure 100/62 100/62 Pulse Oximetry Oxygen Delivery Oxygen Flow Rate Fraction of Inspired Oxygen 04/09/25 00:00 04/09/25 00:00 04/09/25 00:28 Temperature 98.0 F Pulse Rate 97 91 84 Respiratory Rate 21 H 21 H Blood Pressure 105/52 L Pulse Oximetry 92 92 Oxygen Delivery Room Air Oxygen Flow Rate Fraction of Inspired Oxygen 30 04/09/25 00:30 04/09/25 02:00 04/09/25 02:00 Temperature Pulse Rate 97 90 90 Respiratory Rate Blood Pressure 98/56 L 94/58 L Pulse Oximetry Oxygen Delivery Oxygen Flow Rate Fraction of Inspired Oxygen 04/09/25 04:00 04/09/25 04:00 04/09/25 04:00 Temperature Pulse Rate 92 92 100 Respiratory Rate 21 H Blood Pressure 100/64 Pulse Oximetry 92 Oxygen Delivery Room Air Oxygen Flow Rate Fraction of Inspired Oxygen 30 04/09/25 04:33 04/09/25 05:37 04/09/25 05:37 Temperature 98.1 F Pulse Rate 86 112 H 112 H Respiratory Rate 22 H Blood Pressure 92/65 L 98/62 L 98/62 L Pulse Oximetry 98 Oxygen Delivery Oxygen Flow Rate Fraction of Inspired Oxygen 04/09/25 06:00 04/09/25 06:00 04/09/25 06:00 Temperature Pulse Rate 106 H 106 H 105 H Respiratory Rate 20 Blood Pressure 96/62 L 96/60 L Pulse Oximetry 90 Oxygen Delivery Oxygen Flow Rate Fraction of Inspired Oxygen 04/09/25 07:30 04/09/25 07:40 04/09/25 08:14 Temperature 98 F Pulse Rate 83 79 Respiratory Rate 18 Blood Pressure 109/47 L Pulse Oximetry 94 92 Oxygen Delivery Nasal Cannula Oxygen Flow Rate 3 Fraction of Inspired Oxygen Intake/Output Intake/Output: Intake & Output 04/06/25 04/07/25 04/08/25 04/09/25 23:59 23:59 23:59 23:59 Intake Total 1773.9 1060.8 2108.2 504.3 Output Total 9775 592 8770 500 Balance 623.9 160.8 858.2 4.3 Meds/Results Medications: Active Medications Generic Name Dose Route Start Last Admin Trade Name Freq PRN Reason Stop Dose Admin Acetaminophen 1,000 mg 04/06/25 13:57 Acetaminophen 500 Mg Tablet PO Q6H PRN PAIN RATED 4-6 Apixaban 2.5 mg 04/06/25 21:00 04/09/25 08:13 Apixaban 2.5 Mg Tablet PO 2.5 mg Q12HR DELMIS Administration Artificial Tears 1 drop 04/06/25 14:20 Artificial Tears Ophth Soln 15 Ml Bottle EACH EYE Q6H PRN Dry Eye(s) Benzonatate 100 mg 04/06/25 14:06 Benzonatate 100 Mg Capsule PO TID PRN Cough Calcium Carbonate 500 mg 04/06/25 14:20 04/09/25 08:08 Calcium/Vitamin D 500 Mg/5 Mcg (200 I.U.) Tablet PO 500 mg DAILY DELMIS Administration Cyclosporine 1 drop 04/06/25 21:00 04/08/25 21:06 Cyclosporine 0.4 Ml Ophth Solution EACH EYE 1 drop QHS DELMIS Administration Diclofenac Sodium 0 applic 04/06/25 14:06 Diclofenac Sodium 1% 100 Gm Gel (*Bkc) TOPICAL QID PRN joint pain Diphenhydramine HCl 25 mg 04/06/25 13:57 Diphenhydramine Hcl Cap 25 Mg Capsule PO Q6H PRN allergy symptoms Empagliflozin 10 mg 04/06/25 14:20 04/09/25 08:08 Empagliflozin 10 Mg Tablet PO 10 mg DAILY DELMIS Administration Ferrous Sulfate 325 mg 04/07/25 09:00 04/09/25 08:12 Ferrous Sulfate 325 Mg Tablet PO 325 mg MoWeFr@[id number] DELMIS Administration Furosemide 40 mg 04/07/25 09:00 04/09/25 08:14 Furosemide Inj 40 Mg/4 Ml Vial IV PUSH 40 mg DAILY DELMIS Administration Guaifenesin/Codeine Phosphate 10 ml 04/06/25 13:57 Guaifenesin/Codeine (*Crx) 200/20 Mg 10 Ml Syrup PO Q4-6H PRN Cough Ceftriaxone Sodium 1 gm/ 50 mls @ 100 mls/hr 04/06/25 15:00 04/08/25 16:38 Sodium Chloride IVPB Infused Q24H DELMIS Infusion Azithromycin 500 mg/ Sodium 250 mls @ 250 mls/hr 04/06/25 15:00 04/08/25 16:38 Chloride IVPB 04/10/25 15:59 Infused Q24H DELMIS Infusion Diltiazem HCl 100 mg in 100 mls @ 15 mls/hr 04/07/25 22:40 04/09/25 06:00 Cardizem 100 Mg/100 Ml IV CONT 15 mg/hr .Q6H40M DELMIS 15 mls/hr 15 MG/HR Infusion Lactobacillus Acidophilus 1 tablet 04/07/25 09:00 04/09/25 08:13 Acidophilus/Bulgaricus Chewable Tablet PO 1 tablet DAILY DELMIS Administration Latanoprost 1 drop 04/06/25 21:00 04/09/25 02:03 Latanoprost 0.005% Op Soln 2.5 Ml Btl EACH EYE Not Given QHS DELMIS Levalbuterol HCl 0.63 mg 04/08/25 11:01 04/09/25 08:11 Levalbuterol Neb 1.25 Mg/3 Ml INHALATION 0.63 mg Q6HRT PRN Administration Wheezing Metoprolol Tartrate 50 mg 04/07/25 08:50 04/09/25 08:14 Metoprolol Tartrate 50 Mg Tab PO 50 mg DAILY DELMIS Administration Metoprolol Tartrate 100 mg 04/07/25 21:00 04/08/25 21:06 Metoprolol Tartrate 50 Mg Tab PO 100 mg HS DELMIS Administration Midodrine 10 mg 04/06/25 14:20 04/09/25 08:10 Midodrine Hcl 10 Mg Tablet PO 10 mg DAILY DELMIS Administration Miscellaneous Information 1 each 04/07/25 00:01 04/09/25 02:04 Adempas Is Nonform; Can Pt Use From Home? XX 05/07/25 00:00 Not Given CLARIFY DELMIS Miscellaneous Information 1 each 04/07/25 00:01 04/09/25 02:04 Uptravi Is Nonform; Can Pt Use From Home? XX 05/07/25 00:00 Not Given CLARIFY DELMIS Non-Formulary Medication 1 mg 04/06/25 17:00 Riociguat [Adempas] PO 05/06/25 16:59 TID DELMIS Non-Formulary Medication 800 mcg 04/06/25 17:00 Selexipag [Uptravi] PO 05/06/25 16:59 BID DELMIS Pantoprazole Sodium 40 mg 04/06/25 14:20 04/09/25 08:11 Pantoprazole 40 Mg Tablet PO 40 mg QAM DELMIS Administration Perflutren Lipid Microsphere 0 ml 04/06/25 14:00 Perflutren Lipid Microspheres 1.5 Ml Vial Diluted To 10 Ml Total Volume IV PUSH 04/09/25 14:00 ONCE PRN adequate visualization Protocol Potassium Chloride 20 meq 04/06/25 14:20 04/09/25 08:09 Potassium Chloride 20 Meq Er Tablet PO 20 meq DAILY DELMIS Administration Prednisone 40 mg 04/06/25 14:05 04/09/25 08:11 Prednisone 20 Mg Tablet PO 04/10/25 08:01 40 mg DAILY@0800 DELMIS Administration Fluticasone/Salmeterol 2 puff 04/06/25 20:00 04/09/25 07:26 Fluticasone/Salmeterol 115-21 Mcg Inhaler 1 Puff INHALATION 2 puff Q12HRT DELMIS Administration Sertraline HCl 50 mg 04/06/25 14:20 04/09/25 08:09 Sertraline Hcl 50 Mg Tablet PO 50 mg DAILY DELMIS Administration Simvastatin 10 mg 04/06/25 18:00 04/08/25 18:23 Simvastatin 10 Mg Tablet PO 10 mg QPM DELMIS Administration Umeclidinium Lacey 1 puff 04/07/25 08:00 04/09/25 07:27 Umeclidinium Lacey 62.5 Mcg Ellipta INHALATION 1 puff DAILYRT DELMIS Administration Radiology Results: ITS Impressions Chest X-Ray 04/09/25 08:07 Impression: CHF. Findings appear progressed compared to the previous exam Labs Labs: Laboratory Results - last 24 hr 04/09/25 03:38 WBC 9.3 RBC 4.02 L Hgb 11.1 L Hct 36.1 L MCV 89.8 MCH 27.6 MCHC 30.7 L RDW 17.0 H Plt Count 191 MPV 10.7 H Immature Gran % (Auto) 1.1 H Neut % (Auto) 89.4 H Lymph % (Auto) 5.1 L Whitfield % (Auto) 4.3 Eos % (Auto) 0.0 Baso % (Auto) 0.1 L Lymph # (Auto) 0.47 L [place]field # (Auto) 0.4 Eos # (Auto) 0.0 Baso # (Auto) 0.0 Abs Immat Gran (auto) 0.10 H Absolute Neuts (auto) 8.3 H Absolute Nucleated RBC 0.000 Nucleated RBC % 0.0 Sodium 135 L Potassium 4.5 Chloride 108 H Carbon Dioxide 19 L Anion Gap 8 BUN 31 H Creatinine 1.10 H Estim Creat Clear Calc 26 Estimated GFR 47 L Glucose 107 Calcium 8.0 L Magnesium 2.3 Total Bilirubin 0.5 AST 22 ALT 16 Alkaline Phosphatase 52 NT-Pro-B Natriuret Pep 6760 H Total Protein 6.6 Albumin 3.6
[2025-04-09] MEDS: guaiFENesin 12 HR 600 MG TABCR PO ×2 (08:41→21:16)
--- NOTE | 2025-04-09 10:10 | P.PNCA_ITS ---
Progress Note: A&P Assessment and Plan (1) Atrial fibrillation with rapid ventricular response: Code(s): I48.91 - Unspecified atrial fibrillation Status: Acute Assessment and Plan: She has paroxysmal atrial fibrillation, now has atrial flutter with rapid ventricular response in the setting of acute illness with pneumonia, COPD exacerbation. * Continue rate control with diltiazem drip, has been increased to 15 milligrams/hour, with somewhat limited rate control * Continue metoprolol at 150 mg daily * will give dose of IV digoxin 0.25 mg IVP x one this am * cannot tolerate amiodarone per patient reports * will stop duo nebs and change to atrovent alone * Continue anticoagulation with apixaban 2.5 mg p.o. b.i.d. * Echocardiogram demonstrates EF of 60-65% with moderate TR * Check and replace electrolytes with goals K + 4.0, magnesium 2.0 * she follows with EP as OP and was originally planned for upgarde to BIV device and AV node ablation, however, she states on last device check was only in afib 38% of the time. We will interrogate her [employer] PPM and consider CV in am if rate remains uncontrolled (2) Acute and chronic respiratory failure: Qualifiers: Respiratory failure complication: hypoxia Qualified Code(s): J96.21 - Acute and chronic respiratory failure with hypoxia Code(s): J96.20 - Acute and chronic respiratory failure, unspecified whether with hypoxia or hypercapnia Status: Acute Assessment and Plan: Secondary to COPD exacerbation, pneumonia (3) Pneumonia: Qualifiers: Pneumonia type: due to unspecified organism Laterality: bilateral Lung location: unspecified part of lung Qualified Code(s): J18.9 - Pneumonia, unspecified organism Code(s): J18.9 - Pneumonia, unspecified organism Status: Acute Assessment and Plan: Management per hospitalist (4) COPD (chronic obstructive pulmonary disease): Qualifiers: COPD type: unspecified COPD Qualified Code(s): J44.9 - Chronic obst ructive pulmonary disease, unspecified Code(s): J44.9 - Chronic obstructive pulmonary disease, unspecified Status: Chronic Assessment and Plan: Management per hospitalist (5) Congestive heart failure: Qualifiers: Heart failure chronicity: acute on chronic Heart failure type: unspecified Qualified Code(s): I50.9 - Heart failure, unspecified Code(s): I50.9 - Heart failure, unspecified Status: Acute Assessment and Plan: * diastolic dysfunction EF of 60-65% acute exacerbation in setting of afib with RVR * continued SOB although improved * pBNP remains elevated at 6760 * CXR with persistent pulmonary vascular congestion * Will increase lasix to BID dosing for today * monitor renal function and electrolytes closely with diuretic (6) Hypotension: Code(s): I95.9 - Hypotension, unspecified Status: Acute Assessment and Plan: * BP stable at this time * she is on her home midodrine 10 mg daily * will continue to monitor with rate lowering agents Plan * give additional dose of lasix IVP today * Will give dose of IV digoxin x 1 * interrrogate Medtronic PPM * NPO after MN for possible CV in am. Subjective Date/time seen: 04/09/25 10:10 Interval history: Date of Service 04/09/25: Patient sitting up in bed. Remains on O2 per NC. Her is at the bedside. She states breathing feels improved. Denies any chest pain or pressure. No palpitations. Review of Systems Review of Systems: All systems reviewed & are unremarkable except as noted in HPI and below Exam Const: General: comfortable and no acute distress Neck: Neck: supple and No no JVD Resp: Effort & Inspection: normal respiratory effort Auscultation: crackles Cardio: Rate: tachycardic Rhythm: abnormal rhythm irregularly irregular Heart sounds: no gallops, no murmurs and no rubs Skin: General skin exam: normal color Neuro: Speech: normal speech Extrem: General: no edema Psych: Mental Status: mental status grossly normal Objective Data Vital Signs Vital Signs: Vital Signs - 24 hr 04/08/25 10:14 04/08/25 10:21 04/08/25 10:21 Temperature Pulse Rate 148 H 132 H 132 H Respiratory Rate Blood Pressure 98/70 L Pulse Oximetry Oxygen Delivery Oxygen Flow Rate Fraction of Inspired Oxygen 04/08/25 12:00 04/08/25 12:00 04/08/25 12:00 Temperature 36.3 C L Pulse Rate 111 H 124 H 116 H Respiratory Rate 20 Blood Pressure 111/73 111/73 Pulse Oximetry 95 Oxygen Delivery Oxygen Flow Rate Fraction of Inspired Oxygen 04/08/25 14:00 04/08/25 14:00 04/08/25 14:00 Temperature Pulse Rate 116 H 116 H 116 H Respiratory Rate Blood Pressure 94/56 L 94/56 L Pulse Oximetry Oxygen Delivery Oxygen Flow Rate Fraction of Inspired Oxygen 04/08/25 16:00 04/08/25 16:00 04/08/25 16:00 Temperature 36.8 C Pulse Rate 122 H 122 H 94 Respiratory Rate 18 Blood Pressure 98/62 L 98/62 L Pulse Oximetry 92 Oxygen Delivery Oxygen Flow Rate Fraction of Inspired Oxygen 04/08/25 16:34 04/08/25 18:00 04/08/25 18:00 Temperature Pulse Rate 94 88 88 Respiratory Rate 98 H Blood Pressure 98/62 L 98/62 L Pulse Oximetry 62 L Oxygen Delivery Oxygen Flow Rate Fraction of Inspired Oxygen 04/08/25 18:00 04/08/25 19:20 04/08/25 20:00 Temperature 36.4 C L Pulse Rate 86 81 92 Respiratory Rate 16 Blood Pressure 93/55 L 92/53 L 98/58 L Pulse Oximetry 93 Oxygen Delivery Oxygen Flow Rate Fraction of Inspired Oxygen 04/08/25 20:00 04/08/25 20:00 04/08/25 22:00 Temperature 36.6 C Pulse Rate 106 H 82 96 Respiratory Rate 22 H 22 H Blood Pressure 94/62 L Pulse Oximetry 94 94 Oxygen Delivery Room Air Oxygen Flow Rate Fraction of Inspired Oxygen 30 04/08/25 22:00 04/08/25 22:00 04/08/25 23:03 Temperature Pulse Rate 106 H 112 H 95 Respiratory Rate Blood Pressure 98/52 L 100/62 Pulse Oximetry Oxygen Delivery Oxygen Flow Rate Fraction of Inspired Oxygen 04/08/25 23:03 04/09/25 00:00 04/09/25 00:00 Temperature Pulse Rate 95 97 91 Respiratory Rate 21 H Blood Pressure 100/62 Pulse Oximetry 92 Oxygen Delivery Room Air Oxygen Flow Rate Fraction of Inspired Oxygen 30 04/09/25 00:28 04/09/25 00:30 04/09/25 02:00 Temperature 36.7 C Pulse Rate 84 97 90 Respiratory Rate 21 H Blood Pressure 105/52 L 98/56 L Pulse Oximetry 92 Oxygen Delivery Oxygen Flow Rate Fraction of Inspired Oxygen 04/09/25 02:00 04/09/25 04:00 04/09/25 04:00 Temperature Pulse Rate 90 92 92 Respiratory Rate 21 H Blood Pressure 94/58 L 100/64 Pulse Oximetry 92 Oxygen Delivery Room Air Oxygen Flow Rate Fraction of Inspired Oxygen 30 04/09/25 04:00 04/09/25 04:33 04/09/25 05:37 Temperature 36.7 C Pulse Rate 100 86 112 H Respiratory Rate 22 H Blood Pressure 92/65 L 98/62 L Pulse Oximetry 98 Oxygen Delivery Oxygen Flow Rate Fraction of Inspired Oxygen 04/09/25 05:37 04/09/25 06:00 04/09/25 06:00 Temperature Pulse Rate 112 H 106 H 106 H Respiratory Rate Blood Pressure 98/62 L 96/62 L Pulse Oximetry Oxygen Delivery Oxygen Flow Rate Fraction of Inspired Oxygen 04/09/25 06:00 04/09/25 07:30 04/09/25 07:40 Temperature 36.6 C Pulse Rate 105 H 83 Respiratory Rate 20 18 Blood Pressure 96/60 L 109/47 L Pulse Oximetry 90 94 92 Oxygen Delivery Nasal Cannula Oxygen Flow Rate 3 Fraction of Inspired Oxygen 04/09/25 08:00 04/09/25 08:11 04/09/25 08:14 Temperature Pulse Rate 83 78 79 Respiratory Rate 24 H Blood Pressure Pulse Oximetry Oxygen Delivery Oxygen Flow Rate Fraction of Inspired Oxygen 04/09/25 08:18 Temperature Pulse Rate 92 Respiratory Rate 24 H Blood Pressure Pulse Oximetry Oxygen Delivery Oxygen Flow Rate Fraction of Inspired Oxygen Intake/Output Intake/Output: Intake & Output 04/06/25 04/07/25 04/08/25 04/09/25 23:59 23:59 23:59 23:59 Intake Total 1773.9 1060.8 2108.2 744.3 Output Total 8485 451 3484 500 Balance 623.9 160.8 858.2 244.3 Meds/Results Medications: Active Medications Generic Name Dose Route Start Last Admin Trade Name Freq PRN Reason Stop Dose Admin Acetaminophen 1,000 mg 04/06/25 13:57 Acetaminophen 500 Mg Tablet PO Q6H PRN PAIN RATED 4-6 Apixaban 2.5 mg 04/06/25 21:00 04/09/25 08:13 Apixaban 2.5 Mg Tablet PO 2.5 mg Q12HR MALINDA Administration Artificial Tears 1 drop 04/06/25 14:20 Artificial Tears Ophth Soln 15 Ml Bottle EACH EYE Q6H PRN Dry Eye(s) Benzonatate 100 mg 04/06/25 14:06 Benzonatate 100 Mg Capsule PO TID PRN Cough Calcium Carbonate 500 mg 04/06/25 14:20 04/09/25 08:08 Calcium/Vitamin D 500 Mg/5 Mcg (200 I.U.) Tablet PO 500 mg DAILY MALINDA Administration Cyclosporine 1 drop 04/06/25 21:00 04/08/25 21:06 Cyclosporine 0.4 Ml Ophth Solution EACH EYE 1 drop QHS MALINDA Administration Diclofenac Sodium 0 applic 04/06/25 14:06 Diclofenac Sodium 1% 100 Gm Gel (*Bkc) TOPICAL QID PRN joint pain Diphenhydramine HCl 25 mg 04/06/25 13:57 Diphenhydramine Hcl Cap 25 Mg Capsule PO Q6H PRN allergy symptoms Empagliflozin 10 mg 04/06/25 14:20 04/09/25 08:08 Empagliflozin 10 Mg Tablet PO 10 mg DAILY MALINDA Administration Ferrous Sulfate 325 mg 04/07/25 09:00 04/09/25 08:12 Ferrous Sulfate 325 Mg Tablet PO 325 mg [id number] MALINDA Administration Guaifenesin 600 mg 04/09/25 09:00 04/09/25 08:41 Guaifenesin 12 Hr 600 Mg Tabcr PO 600 mg Q12HR MALINDA Administration Guaifenesin/Codeine Phosphate 10 ml 04/06/25 13:57 Guaifenesin/Codeine (*Crx) 200/20 Mg 10 Ml Syrup PO Q4-6H PRN Cough Ceftriaxone Sodium 1 gm/ 50 mls @ 100 mls/hr 04/06/25 15:00 04/08/25 16:38 Sodium Chloride IVPB Infused Q24H MALINDA Infusion Azithromycin 500 mg/ Sodium 250 mls @ 250 mls/hr 04/06/25 15:00 04/08/25 16:38 Chloride IVPB 04/10/25 15:59 Infused Q24H MALINDA Infusion Diltiazem HCl 100 mg in 100 mls @ 15 mls/hr 04/07/25 22:40 04/09/25 06:00 Cardizem 100 Mg/100 Ml IV CONT 15 mg/hr .Q6H40M MALINDA 15 mls/hr 15 MG/HR Infusion Lactobacillus Acidophilus 1 tablet 04/07/25 09:00 04/09/25 08:13 Acidophilus/Bulgaricus Chewable Tablet PO 1 tablet DAILY MALINDA Administration Latanoprost 1 drop 04/06/25 21:00 04/09/25 02:03 Latanoprost 0.005% Op Soln 2.5 Ml Btl EACH EYE Not Given QHS MALINDA Levalbuterol HCl 0.63 mg 04/08/25 11:01 04/09/25 08:11 Levalbuterol Neb 1.25 Mg/3 Ml INHALATION 0.63 mg Q6HRT PRN Administration Wheezing Metoprolol Tartrate 50 mg 04/07/25 08:50 04/09/25 08:14 Metoprolol Tartrate 50 Mg Tab PO 50 mg DAILY MALINDA Administration Metoprolol Tartrate 100 mg 04/07/25 21:00 04/08/25 21:06 Metoprolol Tartrate 50 Mg Tab PO 100 mg HS MALINDA Administration Midodrine 10 mg 04/06/25 14:20 04/09/25 08:10 Midodrine Hcl 10 Mg Tablet PO 10 mg DAILY MALINDA Administration Miscellaneous Information 1 each 04/07/25 00:01 04/09/25 02:04 Adempas Is Nonform; Can Pt Use From Home? XX 05/07/25 00:00 Not Given CLARIFY MALINDA Miscellaneous Information 1 each 04/07/25 00:01 04/09/25 02:04 Uptravi Is Nonform; Can Pt Use From Home? XX 05/07/25 00:00 Not Given CLARIFY MALINDA Non-Formulary Medication 1 mg 04/06/25 17:00 Riociguat [Adempas] PO 05/06/25 16:59 TID MALINDA Non-Formulary Medication 800 mcg 04/06/25 17:00 Selexipag [Uptravi] PO 05/06/25 16:59 BID MALINDA Pantoprazole Sodium 40 mg 04/06/25 14:20 04/09/25 08:11 Pantoprazole 40 Mg Tablet PO 40 mg QAM MALINDA Administration Perflutren Lipid Microsphere 0 ml 04/06/25 14:00 Perflutren Lipid Microspheres 1.5 Ml Vial Diluted To 10 Ml Total Volume IV PUSH 04/09/25 14:00 ONCE PRN adequate visualization Protocol Potassium Chloride 20 meq 04/06/25 14:20 04/09/25 08:09 Potassium Chloride 20 Meq Er Tablet PO 20 meq DAILY MALINDA Administration Prednisone 40 mg 04/06/25 14:05 04/09/25 08:11 Prednisone 20 Mg Tablet PO 04/10/25 08:01 40 mg DAILY@0800 MALINDA Administration Fluticasone/Salmeterol 2 puff 04/06/25 20:00 04/09/25 07:26 Fluticasone/Salmeterol 115-21 Mcg Inhaler 1 Puff INHALATION 2 puff Q12HRT MALINDA Administration Sertraline HCl 50 mg 04/06/25 14:20 04/09/25 08:09 Sertraline Hcl 50 Mg Tablet PO 50 mg DAILY MALINDA Administration Simvastatin 10 mg 04/06/25 18:00 04/08/25 18:23 Simvastatin 10 Mg Tablet PO 10 mg QPM MALINDA Administration Umeclidinium Dingess 1 puff 04/07/25 08:00 04/09/25 07:27 Umeclidinium Dingess 62.5 Mcg Ellipta INHALATION 1 puff DAILYRT MALINDA Administration Radiology Results: ITS Impressions Chest X-Ray 04/09/25 08:07 Impression: CHF. Findings appear progressed compared to the previous exam Labs Labs: Laboratory Results - last 24 hr 04/09/25 03:38 WBC 9.3 RBC 4.02 L Hgb 11.1 L Hct 36.1 L MCV 89.8 MCH 27.6 MCHC 30.7 L RDW 17.0 H Plt Count 191 MPV 10.7 H Immature Gran % (Auto) 1.1 H Neut % (Auto) 89.4 H Lymph % (Auto) 5.1 L Mason % (Auto) 4.3 Eos % (Auto) 0.0 Baso % (Auto) 0.1 L Lymph # (Auto) 0.47 L Mason # (Auto) 0.4 Eos # (Auto) 0.0 Baso # (Auto) 0.0 Abs Immat Gran (auto) 0.10 H Absolute Neuts (auto) 8.3 H Absolute Nucleated RBC 0.000 Nucleated RBC % 0.0 Sodium 135 L Potassium 4.5 Chloride 108 H Carbon Dioxide 19 L Anion Gap 8 BUN 31 H Creatinine 1.10 H Estim Creat Clear Calc 26 Estimated GFR 47 L Glucose 107 Calcium 8.0 L Magnesium 2.3 Total Bilirubin 0.5 AST 22 ALT 16 Alkaline Phosphatase 52 NT-Pro-B Natriuret Pep 6760 H Total Protein 6.6 Albumin 3.6
[2025-04-09] MEDS: DIGOXIN INJ 250 MCG/ML 2 ML AMP (*BKC) IV PUSH (10:52)
[2025-04-09] MEDS: ACETAMINOPHEN 500 MG TABLET 1000 MG PO (15:01)
[2025-04-09] MEDS: SIMVASTATIN 10 MG TABLET PO (18:07)
[2025-04-09] MEDS: METOPROLOL TARTRATE 50 MG TAB 100 MG PO (21:15)
[2025-04-09] MEDS: cycloSPORINE 0.4 ML OPHTH SOLUTION 1 DROP EACH EYE (21:16)
[2025-04-09] MEDS: LATANOPROST 0.005% OP SOLN 2.5 ML BTL 1 DROP EACH EYE (21:21)
[2025-04-10] VITALS (21 sets, daily range): BP systolic 104–118; BP diastolic 51–62; PULSE 69–93; RESP 16–24; TEMP 36.3–36.8; O2SAT 90–94
[2025-04-10] MEDS: dilTIAZem 100 MG/100 ML 100 MG/100 ML BAG 15 MG IV CONT ×2 (00:59→06:56)
[2025-04-10 03:47] LABS: Hematocrit 34.7 % (37.0-47.0); Hemoglobin 11.0 g/dL (12.0-15.0); Immature Granulocyte Percent A 1.7 % (0-0.5); Lymphocytes Absolute Auto 0.45 K/mm3 (0.9-3.2); Mean Corpuscular HGB Conc 31.7 g/dl (32-36); Mean Corpuscular Hemoglobin 27.4 pg (26-34); Mean Corpuscular Volume 86.5 fl (80-100); Nucleated Red Blood Cells Absolute Auto 0.000 K/mm3 (0.0-0.012); Nucleated Red Blood Cells Perc 0.0 % (0.0-0.2); Platelet Count Result 205 k/mm3 (150-375); Red Blood Count 4.01 M/mm3 (4.2-5.4); White Blood Count 8.1 K/mm3 (4.5-10.0)
[2025-04-10 04:13] LABS: Alanine Aminotransferase 28 U/L (6-35); Albumin Level 3.8 g/dL (3.5-5.1); Alkaline Phosphatase 50 U/L (38-126); Anion Gap 6 mmol/L (4-12); Aspartate Amino Transferase 32 U/L (14-36); Bilirubin,Total 0.5 mg/dL (0.2-1.3); Blood Urea Nitrogen 33 mg/dL (7-17); Calcium 8.2 mg/dL (8.4-10.2); Carbon Dioxide 24 mmol/L (22-30); Chloride 107 mmol/L (98-107); Estimated CRCL calculation 21 ml/min; Estimated Glomerular Filt Rate 37; Glucose 104 mg/dL (65-110); Magnesium 2.2 mg/dL (1.6-2.3); Potassium 4.0 mmol/L (3.4-5.0); Sodium 137 mmol/L (137-145); Total Protein 6.8 g/dL (6.3-8.2)
[2025-04-10] MEDS: METOPROLOL TARTRATE 50 MG TAB PO (09:06)
[2025-04-10] MEDS: APIXABAN 2.5 MG TABLET PO ×2 (09:06→21:05)
[2025-04-10] MEDS: ACETAMINOPHEN 500 MG TABLET 1000 MG PO ×2 (09:06→21:09)
[2025-04-10] MEDS: ACIDOPHILUS/BULGARICUS CHEWABLE TABLET 1 TABLET PO (09:07)
[2025-04-10] MEDS: POTASSIUM CHLORIDE 20 MEQ ER TABLET PO (09:07)
[2025-04-10] MEDS: MIDODRINE HCL 10 MG TABLET PO (09:07)
[2025-04-10] MEDS: PANTOPRAZOLE 40 MG TABLET PO (09:07)
[2025-04-10] MEDS: CALCIUM/VITAMIN D 500 MG/5 MCG (200 I.U.) TABLET PO (09:07)
[2025-04-10] MEDS: EMPAGLIFLOZIN 10 MG TABLET PO (09:07)
[2025-04-10] MEDS: guaiFENesin 12 HR 600 MG TABCR PO ×2 (09:07→21:05)
[2025-04-10] MEDS: FUROSEMIDE INJ 40 MG/4 ML VIAL IV PUSH (09:08)
[2025-04-10] MEDS: SERTRALINE HCL 50 MG TABLET PO (09:08)
[2025-04-10] MEDS: FLUTICASONE/SALMETEROL 115-21 MCG INHALER 1 PUFF 2 PUFF INHALATION ×2 (09:21→20:40)
[2025-04-10] MEDS: UMECLIDINIUM BROMIDE 62.5 MCG ELLIPTA 1 PUFF INHALATION (09:21)
--- NOTE | 2025-04-10 09:51 | P.PNCA_ITS ---
Progress Note: A&P Assessment and Plan (1) Atrial fibrillation with rapid ventricular response: Code(s): I48.91 - Unspecified atrial fibrillation Status: Acute Assessment and Plan: She has paroxysmal atrial fibrillation, now has atrial flutter with rapid ventricular response in the setting of acute illness with pneumonia, COPD exacerbation. * She is now in a paced rhythm * Discontinue diltiazem drip * Continue metoprolol at 150 mg daily * will stop duo nebs and change to atrovent alone * Continue anticoagulation with apixaban 2.5 mg p.o. b.i.d. * Echocardiogram demonstrates EF of 60-65% with moderate TR * Check and replace electrolytes with goals K + 4.0, magnesium 2.0 * she follows with EP as OP and was originally planned for upgrade to BIV device and AV node ablation, however, she states on last device check was only in afib 38% of the time. (2) Acute and chronic respiratory failure: Qualifiers: Respiratory failure complication: hypoxia Qualified Code(s): J96.21 - Acute and chronic respiratory failure with hypoxia Code(s): J96.20 - Acute and chronic respiratory failure, unspecified whether with hypoxia or hypercapnia Status: Acute Assessment and Plan: Secondary to COPD exacerbation, pneumonia (3) Pneumonia: Qualifiers: Laterality: bilateral Lung location: unspecified part of lung Pneumonia type: due to unspecified organism Qualified Code(s): J18.9 - Pneumonia, unspecified organism Code(s): J18.9 - Pneumonia, unspecified organism Status: Acute Assessment and Plan: Management per hospitalist (4) COPD (chronic obstructive pulmonary disease): Qualifiers: COPD type: unspecified COPD Qualified Code(s): J44.9 - Chronic obstructive pulmonary disease, unspecified Code(s): J44.9 - Chronic obstructive pulmonary disease, unspecified Status: Chronic Assessment and Plan: Management per hospitalist (5) Congestive heart failure: Qualifiers: Heart failure chronicity: acute on chronic Heart failure type: unspecified Qualified Code(s): I50.9 - Heart failure, unspecified Code(s): I50.9 - Heart failure, unspecified Status: Acute Assessment and Plan: * diastolic dysfunction EF of 60-65% acute exacerbation in setting of afib with RVR * continued SOB although improved * pBNP remains elevated at 6760 * Repeat CXR in a.m. * Decrease furosemide to 40 mg IV once daily * monitor renal function and electrolytes closely with diuretic (6) Hypotension: Code(s): I95.9 - Hypotension, unspecified Status: Acute Assessment and Plan: * BP stable at this time * she is on her home midodrine 10 mg daily * will continue to monitor with rate lowering agents Subjective Date/time seen: 04/10/25 09:51 Interval history: Cardiology follow-up visit for atrial fibrillation Date of Service 04/09/25: Patient sitting up in bed. Remains on O2 per NC. Her is at the bedside. She states breathing feels improved. Denies any chest pain or pressure. No palpitations. Date of service 04/10/2025: Feeling better today. Does not feel short of breath. Telemetry shows paced rhythm. Review of Systems Review of Systems: All systems reviewed & are unremarkable except as noted in HPI and below Exam Const: General: comfortable, no acute distress, alert and awake Orientation/consciousness: patient oriented x3 HENMT: Head: normal to inspection Eyes: General: appearance normal, both eyes and all related structures Sclera: sclerae normal Pupils: Equal, round and reactive pupils present Neck: Neck: normal visual inspection, supple and No no JVD Thyroid: thyroid normal Carotids: normal carotid upstroke Resp: Effort & Inspection: normal respiratory effort Auscultation: clear to auscultation bilaterally and crackles Other: On supplemental oxygen per nasal cannula Cardio: Rate: regular rate Rhythm: regular rhythm Heart sounds: S1 normal heart sound present, S2 normal heart sound present, no gallops, no murmurs and no rubs GI: Auscultation: normal bowel sounds Skin: General skin exam: normal color Neuro: General: patient oriented x3 Cranial nerves: Yes Equal, round and reactive pupils present Speech: normal speech Extrem: General: normal to inspection and no edema Psych: Appearance: grossly normal Mental Status: mental status grossly normal Objective Data Vital Signs Vital Signs: Vital Signs - 24 hr 04/09/25 10:00 04/09/25 10:00 04/09/25 10:52 Temperature Pulse Rate 129 H 129 H 128 H Respiratory Rate Blood Pressure 101/74 Pulse Oximetry 94 Oxygen Delivery Oxygen Flow Rate Fraction of Inspired Oxygen 04/09/25 11:45 04/09/25 11:45 04/09/25 12:00 Temperature 36.9 C Pulse Rate 73 73 76 Respiratory Rate 18 Blood Pressure 101/74 101/74 98/64 L Pulse Oximetry 92 Oxygen Delivery Oxygen Flow Rate Fraction of Inspired Oxygen 04/09/25 12:00 04/09/25 12:00 04/09/25 14:00 Temperature Pulse Rate 74 74 100 Respiratory Rate Blood Pressure 98/64 L 107/49 L Pulse Oximetry Oxygen Delivery Oxygen Flow Rate Fraction of Inspired Oxygen 04/09/25 14:00 04/09/25 14:00 04/09/25 15:51 Temperature 36.3 C L Pulse Rate 100 90 100 Respiratory Rate 22 H Blood Pressure 107/49 L 106/46 L Pulse Oximetry 92 94 Oxygen Delivery Oxygen Flow Rate Fraction of Inspired Oxygen 04/09/25 16:00 04/09/25 16:00 04/09/25 18:00 Temperature Pulse Rate 100 95 83 Respiratory Rate Blood Pressure 106/46 L 104/54 L Pulse Oximetry Oxygen Delivery Oxygen Flow Rate Fraction of Inspired Oxygen 04/09/25 18:00 04/09/25 18:00 04/09/25 18:50 Temperature Pulse Rate 83 83 82 Respiratory Rate Blood Pressure 104/83 104/54 L Pulse Oximetry Oxygen Delivery Oxygen Flow Rate Fraction of Inspired Oxygen 04/09/25 19:00 04/09/25 20:00 04/09/25 20:00 Temperature 36.3 C L Pulse Rate 78 77 92 Respiratory Rate 22 H Blood Pressure 104/54 L 108/57 L 108/57 L Pulse Oximetry 22 L Oxygen Delivery Oxygen Flow Rate Fraction of Inspired Oxygen 04/09/25 20:00 04/09/25 20:00 04/09/25 20:31 Temperature Pulse Rate 72 88 83 Respiratory Rate 20 20 Blood Pressure Pulse Oximetry 94 Oxygen Delivery Nasal Cannula Oxygen Flow Rate 2 Fraction of Inspired Oxygen 04/09/25 20:34 04/09/25 21:15 04/09/25 22:00 Temperature Pulse Rate 83 75 72 Respiratory Rate 20 Blood Pressure 104/54 L Pulse Oximetry 94 Oxygen Delivery Nasal Cannula Oxygen Flow Rate 2 Fraction of Inspired Oxygen 28 04/09/25 22:00 04/10/25 00:00 04/10/25 00:00 Temperature 36.3 C L Pulse Rate 94 73 80 Respiratory Rate 22 H 22 H Blood Pressure 112/51 L Pulse Oximetry 94 94 Oxygen Delivery Nasal Cannula Oxygen Flow Rate 2 Fraction of Inspired Oxygen 04/10/25 00:00 04/10/25 00:59 04/10/25 00:59 Temperature Pulse Rate 93 80 80 Respiratory Rate Blood Pressure 112/51 L 112/51 L Pulse Oximetry Oxygen Delivery Oxygen Flow Rate Fraction of Inspired Oxygen 04/10/25 02:00 04/10/25 02:00 04/10/25 02:00 Temperature Pulse Rate 81 80 80 Respiratory Rate 18 Blood Pressure 104/58 L 104/58 L Pulse Oximetry 91 Oxygen Delivery Oxygen Flow Rate Fraction of Inspired Oxygen 04/10/25 04:00 04/10/25 04:00 04/10/25 04:00 Temperature 36.6 C Pulse Rate 76 76 84 Respiratory Rate 18 18 Blood Pressure 106/60 106/51 L Pulse Oximetry 91 91 Oxygen Delivery Nasal Cannula Oxygen Flow Rate 2 Fraction of Inspired Oxygen 04/10/25 04:00 04/10/25 06:00 04/10/25 06:56 Temperature Pulse Rate 72 80 80 Respiratory Rate Blood Pressure 104/62 Pulse Oximetry Oxygen Delivery Oxygen Flow Rate Fraction of Inspired Oxygen 04/10/25 06:56 04/10/25 08:00 04/10/25 09:06 Temperature 36.4 C Pulse Rate 80 76 75 Respiratory Rate 16 Blood Pressure 104/62 107/59 L Pulse Oximetry 90 Oxygen Delivery Oxygen Flow Rate Fraction of Inspired Oxygen 04/10/25 09:20 04/10/25 09:35 04/10/25 09:42 Temperature Pulse Rate 73 83 Respiratory Rate 20 20 Blood Pressure Pulse Oximetry 93 Oxygen Delivery Nasal Cannula Oxygen Flow Rate 4 Fraction of Inspired Oxygen Intake/Output Intake/Output: Intake & Output 04/07/25 04/08/25 04/09/25 04/10/25 23:59 23:59 23:59 23:59 Intake Total 1060.8 2108.2 2255.6 134.0 Output Total 900 1250 1100 1700 Balance 160.8 858.2 1155.6 -1566.0 Meds/Results Medications: Active Medications Generic Name Dose Route Start Last Admin Trade Name Freq PRN Reason Stop Dose Admin Acetaminophen 1,000 mg 04/06/25 13:57 04/10/25 09:06 Acetaminophen 500 Mg Tablet PO 1,000 mg Q6H PRN Administration PAIN RATED 4-6 Apixaban 2.5 mg 04/06/25 21:00 04/10/25 09:06 Apixaban 2.5 Mg Tablet PO 2.5 mg Q12HR MALINDA Administration Benzonatate 100 mg 04/06/25 14:06 Benzonatate 100 Mg Capsule PO TID PRN Cough Calcium Carbonate 500 mg 04/06/25 14:20 04/10/25 09:07 Calcium/Vitamin D 500 Mg/5 Mcg (200 I.U.) Tablet PO 500 mg DAILY MALINDA Administration Cyclosporine 1 drop 04/06/25 21:00 04/09/25 21:16 Cyclosporine 0.4 Ml Ophth Solution EACH EYE 1 drop QHS MALINDA Administration Diclofenac Sodium 0 applic 04/06/25 14:06 Diclofenac Sodium 1% 100 Gm Gel (*Bkc) TOPICAL QID PRN joint pain Diphenhydramine HCl 25 mg 04/06/25 13:57 Diphenhydramine Hcl Cap 25 Mg Capsule PO Q6H PRN allergy symptoms Empagliflozin 10 mg 04/06/25 14:20 04/10/25 09:07 Empagliflozin 10 Mg Tablet PO 10 mg DAILY MALINDA Administration Ferrous Sulfate 325 mg 04/07/25 09:00 04/09/25 08:12 Ferrous Sulfate 325 Mg Tablet PO 325 mg [id number] MALINDA Administration Furosemide 40 mg 04/09/25 17:00 04/10/25 09:08 Furosemide Inj 40 Mg/4 Ml Vial IV PUSH 40 mg BID MALINDA Administration Guaifenesin 600 mg 04/09/25 09:00 04/10/25 09:07 Guaifenesin 12 Hr 600 Mg Tabcr PO 600 mg Q12HR MALINDA Administration Guaifenesin/Codeine Phosphate 10 ml 04/06/25 13:57 Guaifenesin/Codeine (*Crx) 200/20 Mg 10 Ml Syrup PO Q4-6H PRN Cough Diltiazem HCl 100 mg in 100 mls @ 15 mls/hr 04/07/25 22:40 04/10/25 06:56 Cardizem 100 Mg/100 Ml IV CONT 15 mg/hr .Q6H40M MALINDA 15 mls/hr 15 MG/HR Administration Lactobacillus Acidophilus 1 tablet 04/07/25 09:00 04/10/25 09:07 Acidophilus/Bulgaricus Chewable Tablet PO 1 tablet DAILY MALINDA Administration Latanoprost 1 drop 04/06/25 21:00 04/09/25 21:21 Latanoprost 0.005% Op Soln 2.5 Ml Btl EACH EYE 1 drop QHS MALINDA Administration Levalbuterol HCl 0.63 mg 04/08/25 11:01 04/10/25 09:32 Levalbuterol Neb 1.25 Mg/3 Ml INHALATION 0.63 mg Q6HRT PRN Administration Wheezing Metoprolol Tartrate 50 mg 04/07/25 08:50 04/10/25 09:06 Metoprolol Tartrate 50 Mg Tab PO 50 mg DAILY MALINDA Administration Metoprolol Tartrate 100 mg 04/07/25 21:00 04/09/25 21:15 Metoprolol Tartrate 50 Mg Tab PO 100 mg HS MALINDA Administration Midodrine 10 mg 04/06/25 14:20 04/10/25 09:07 Midodrine Hcl 10 Mg Tablet PO 10 mg DAILY MALINDA Administration Miscellaneous Information 1 each 04/07/25 00:01 04/10/25 01:48 Adempas Is Nonform; Can Pt Use From Home? XX 05/07/25 00:00 Not Given CLARIFY MALINDA Miscellaneous Information 1 each 04/07/25 00:01 04/10/25 01:48 Uptravi Is Nonform; Can Pt Use From Home? XX 05/07/25 00:00 Not Given CLARIFY MALINDA Non-Formulary Medication 1 mg 04/06/25 17:00 Riociguat [Adempas] PO 05/06/25 16:59 TID MALINDA Non-Formulary Medication 800 mcg 04/06/25 17:00 Selexipag [Uptravi] PO 05/06/25 16:59 BID MALINDA Pantoprazole Sodium 40 mg 04/06/25 14:20 04/10/25 09:07 Pantoprazole 40 Mg Tablet PO 40 mg QAM MALINDA Administration Potassium Chloride 20 meq 04/06/25 14:20 04/10/25 09:07 Potassium Chloride 20 Meq Er Tablet PO 20 meq DAILY MALINDA Administration Fluticasone/Salmeterol 2 puff 04/06/25 20:00 04/10/25 09:21 Fluticasone/Salmeterol 115-21 Mcg Inhaler 1 Puff INHALATION 2 puff Q12HRT MALINDA Administration Sertraline HCl 50 mg 04/06/25 14:20 12/11/25 09:08 Sertraline Hcl 50 Mg Tablet PO 50 mg DAILY MALINDA Administration Simvastatin 10 mg 04/06/25 18:00 04/09/25 18:07 Simvastatin 10 Mg Tablet PO 10 mg QPM MALINDA Administration Umeclidinium [place] 1 puff 04/07/25 08:00 04/10/25 09:21 Umeclidinium [place] 62.5 Mcg Ellipta INHALATION 1 puff DAILYRT MALINDA Administration Radiology Results: ITS Impressions Chest X-Ray 04/09/25 08:07 Impression: CHF. Findings appear progressed compared to the previous exam Labs Labs: Laboratory Results - last 24 hr 04/10/25 03:32 WBC 8.1 RBC 4.01 L Hgb 11.0 L Hct 34.7 L MCV 86.5 MCH 27.4 MCHC 31.7 L RDW 16.6 H Plt Count 205 MPV 10.1 Immature Gran % (Auto) 1.7 H Neut % (Auto) 87.9 H Lymph % (Auto) 5.5 L [place] % (Auto) 4.8 Eos % (Auto) 0.0 Baso % (Auto) 0.1 L Lymph # (Auto) 0.45 L [place] # (Auto) 0.4 Eos # (Auto) 0.0 Baso # (Auto) 0.0 Abs Immat Gran (auto) 0.14 H Absolute Neuts (auto) 7.1 H Absolute Nucleated RBC 0.000 Nucleated RBC % 0.0 Sodium 137 Potassium 4.0 Chloride 107 Carbon Dioxide 24 Anion Gap 6 BUN 33 H Creatinine 1.36 H Estim Creat Clear Calc 21 Estimated GFR 37 L Glucose 104 Calcium 8.2 L Magnesium 2.2 Total Bilirubin 0.5 AST 32 ALT 28 Alkaline Phosphatase 50 Total Protein 6.8 Albumin 3.8 Quality VTE Prophylaxis VTE prophylaxis: pharmacologic ordered
--- NOTE | 2025-04-10 12:57 | P.PNIM_ITS ---
Assessment and Plan Assessment and Plan (1) Acute and chronic respiratory failure: Qualifiers: Respiratory failure complication: hypoxia Qualified Code(s): J96.21 - Acute and chronic respiratory failure with hypoxia Code(s): J96.20 - Acute and chronic respiratory failure, unspecified whether with hypoxia or hypercapnia Status: Acute Assessment and Plan: At baseline patient has chronic respiratory failure and utilizes home O2 as needed (typically when using the stairs or in the shower) and HS. Per EMS, patient 80% on room air upon their arrival. Maintaining O2 sats with 4 L nasal cannula, however due to work of breathing was placed on BiPAP. Workup concerning for pneumonia, CHF exacerbation, and AFib RVR. New hypoxia likely multifactorial due to the aforementioned. - BiPAP initiated on 04/06, continue inpatient for work of breathing - reviewed initial ABG, no significant abnormalities - started on broad-spectrum antibiotics for CAP - XR concerning for pulmonary edema and pneumonia, plan for diuresis - continue supplemental oxygen to maintain O2 sat greater than 92% - patient additionally has underlying COPD, DuoNeb scheduled and initiation of steroids On prednisone 40 mg daily (2) Atrial fibrillation with rapid ventricular response: Code(s): I48.91 - Unspecified atrial fibrillation Status: Acute Assessment and Plan: Initially EKG concerning for atrial flutter/tachycardia with RVR, rate 133. Initial heart rate upon arrival in the 140s. Patient has history of AFib on metoprolol and Eliquis. Suspect flare due to acute illness. - started on diltiazem gtt on 04/06, currently requiring 15 mg/hr - updating echo - TSH 0.302 with normal free T4 recheck as outpatient basis - continue Eliquis - consult cardiology Restarted diltiazem drip. Restart metoprolol. Increased diltiazem 15 milligram/hour heart rate better Echo with normal EF receeived iv digoxin. further care per cardiology cv planned if needed ppm interrogation in process (3) Sepsis: Qualifiers: Sepsis type: sepsis due to unspecified organism Sepsis acute organ dysfunction status: with acute organ dysfunction Severe sepsis acute organ dysfunction type: acute respiratory failure Acute respiratory failure type: with hypoxia Severe sepsis shock status: without septic shock Qualified Code(s): A41.9 - Sepsis, unspecified organism; R65.20 - Severe sepsis without septic shock; J96.01 - Acute respiratory failure with hypoxia Code(s): A41.9 - Sepsis, unspecified organism Status: Acute Assessment and Plan: Patient met SIRS criteria due to heart rate and tachypnea. However heart rate secondary to AFib/atrial flutter. However, patient does have suspected source - > pneumonia and has been reporting congestion/cough/shortness of breath. +hypoxia. Patient also found to be febrile, 100.5? F. - follow blood culture - lactic acid normal - current concern for CHF exacerbation, will hold on further IV fluids at this time. Was given a 1L bolus in the ED. (4) Congestive heart failure: Qualifiers: Heart failure chronicity: acute on chronic Heart failure type: unspecified Qualified Code(s): I50.9 - Heart failure, unspecified Code(s): I50.9 - Heart failure, unspecified Status: Acute Assessment and Plan: Reporting suggestive shortness of breath, new hypoxia. CXR from 04/06 concern ing for pulmonary edema. BNP additionally elevated at 8130. History of CHF, currently acute on chronic. No previous echo on file. - update echo - Lasix 40 mg IV daily, hold home Torsemide 20 mg daily - monitor I&Os daily weights - trend renal function On chronic midodrine therapy Chest x-ray with moderate pulmonary vascular congestion Continue diuresis with Lasix BNP repeat 6760 improved continue diuresis as ordered (5) Pneumonia: Qualifiers: Pneumonia type: due to unspecified organism Laterality: bilateral Lung location: unspecified part of lung Qualified Code(s): J18.9 - Pneumonia, unspecified organism Code(s): J18.9 - Pneumonia, unspecified organism Status: Acute Assessment and Plan: CXR concerning for interstitial pulmonary edema and/or multifocal airspace disease. Patient has elevated BN P making CHF exacerbation likely, however she is additionally reporting congestion/cough/diarrhea which increases suspicion for viral illness/subsequent pneumonia. WBC 9.2 upon admission. Patient did have an elevated heart rate and tachypneic, meeting SIRS/sepsis criteria. - started on ceftriaxone and azithromycin on 04/06 - Tessalon Perles, guaifenesin/codeine p.r.n. for cough, DuoNebs delmis -influenza RSV COVID swab negative Add Mucinex switched to oral antibiotics (6) COPD (chronic obstructive pulmonary disease): Qualifiers: COPD type: unspecified COPD Qualified Code(s): J44.9 - Chronic obstructive pulmonary disease, unspecified Code(s): J44.9 - Chronic obstructive pulmonary disease, unspecified Status: Chronic Assessment and Plan: - [facility] - prednisone 40 mg x 5 days - continue home maintenance medications Plan 89 y/o F with PMH of Afib, COPD, chronic respiratory failure on supplemental O2 p.r.n. and HS, HTN, HLD, RA, and CHF presents here with shortness of breath. The patient presents here from home via EMS on 04/06 for further evaluation of shortness of breath. She reports onset of dyspnea approximately 2 days ago. Shortness of breath has been progressive. She then developed cough, congestion, nausea with dry heaving but no vomiting, chills, and diarrhea yesterday (04/05). She has been utilizing her home breathing treatments with minimal relief. No new symptoms today. Denies chest pain, palpitations, lower extremity swelling, or weight gain. She is on supplemental O2 as needed (typically used when taking the stairs or when taking a shower) and at night as needed - 2L NC. Per EMS, upon arrival the patient was 80% on room air and was subsequently placed on 4L NC and given a DuoNeb. She arrived 94% on 4L. Initial VS at presentation: 98.6? F, HR 141, RR 27, 133/86, and 94% on 4L nasal cannula. ED workup showed: No leukocytosis, no anemia, initial ABG showed a mildly reduced CO2 level, mildly reduced O2 level, with no acidosis/alkalosis, creatinine 1.09 and GFR 47, glucose 115, BNP 8130. EKG showed atrial flutter/tachycardia with RVR, left axis deviation, possible right ventricular conduction delay, delayed precordial R/S transition, borderline ST-T-wave abnormality lateral/high leads. CXR showed interstitial pulmonary edema and or multifocal airspace disease. Diet: Heart healthy DVT Prophylaxis: Eliquis IV fluids: 1L bolus, now diuresing Lines/Tubes: pIV Code Status: full code Subjective Date/time seen: 04/10/25 12:57 Interval history: No overnight events. Patient remains on diltiazem 15 milligram/hour. Heart rate is better controlled. received iv digoxin. cough is still present but better. denies any sob. Review of Systems Review of Systems: All systems reviewed & are unremarkable except as noted in HPI and below Exam Narrative: APPEARANCE: Well-appearing not in acute distress HEAD: normocephalic, atraumatic. EYES: PERRLA/EOMI, conjunctivae clear. NOSE: Normal no drainage NECK: Supple. No adenopathy, no masses. RESPIRATORY: Airway patent, respirations nonlabored. Clear to auscultation bilaterally, no rales, rhonchi, wheezing. CARDIOVASCULAR: regular rate and rhythm, telemetry reivewed ABDOMINAL: Soft, nontender, nondistended, normal bowel sounds MUSCULOSKELETAL: Moves all extremities. Strength/ROM intact, No edema, No calf tenderness. NEURO: Alert. Cranial nerves II through XII intact. Good gait. Good coordination SKIN: Warm, dry. Normal Color Objective Data Vital Signs Vital Signs: Vital Signs - 24 hr 04/09/25 14:00 04/09/25 14:00 04/09/25 14:00 Temperature Pulse Rate 100 100 90 Respiratory Rate Blood Pressure 107/49 L 107/49 L Pulse Oximetry 92 Oxygen Delivery Oxygen Flow Rate Fraction of Inspired Oxygen 04/09/25 15:51 04/09/25 16:00 04/09/25 16:00 Temperature 97.4 F L Pulse Rate 100 100 95 Respiratory Rate 22 H Blood Pressure 106/46 L 106/46 L Pulse Oximetry 94 Oxygen Delivery Oxygen Flow Rate Fraction of Inspired Oxygen 04/09/25 18:00 04/09/25 18:00 04/09/25 18:00 Temperature Pulse Rate 83 83 83 Respiratory Rate Blood Pressure 104/54 L 104/83 Pulse Oximetry Oxygen Delivery Oxygen Flow Rate Fraction of Inspired Oxygen 04/09/25 18:50 04/09/25 19:00 04/09/25 20:00 Temperature 97.3 F L Pulse Rate 82 78 77 Respiratory Rate 22 H Blood Pressure 104/54 L 104/54 L 108/57 L Pulse Oximetry 22 L Oxygen Delivery Oxygen Flow Rate Fraction of Inspired Oxygen 04/09/25 20:00 04/09/25 20:00 04/09/25 20:00 Temperature Pulse Rate 92 72 88 Respiratory Rate 20 Blood Pressure 108/57 L Pulse Oximetry 94 Oxygen Delivery Nasal Cannula Oxygen Flow Rate 2 Fraction of Inspired Oxygen 04/09/25 20:31 04/09/25 20:34 04/09/25 21:15 Temperature Pulse Rate 83 83 75 Respiratory Rate 20 20 Blood Pressure Pulse Oximetry 94 Oxygen Delivery Nasal Cannula Oxygen Flow Rate 2 Fraction of Inspired Oxygen 28 04/09/25 22:00 04/09/25 22:00 04/10/25 00:00 Temperature 97.3 F L Pulse Rate 72 94 73 Respiratory Rate 22 H Blood Pressure 104/54 L 112/51 L Pulse Oximetry 94 Oxygen Delivery Oxygen Flow Rate Fraction of Inspired Oxygen 04/10/25 00:00 04/10/25 00:00 04/10/25 00:59 Temperature Pulse Rate 80 93 80 Respiratory Rate 22 H Blood Pressure 112/51 L Pulse Oximetry 94 Oxygen Delivery Nasal Cannula Oxygen Flow Rate 2 Fraction of Inspired Oxygen 04/10/25 00:59 04/10/25 02:00 04/10/25 02:00 Temperature Pulse Rate 80 81 80 Respiratory Rate Blood Pressure 112/51 L 104/58 L Pulse Oximetry Oxygen Delivery Oxygen Flow Rate Fraction of Inspired Oxygen 04/10/25 02:00 04/10/25 04:00 04/10/25 04:00 Temperature Pulse Rate 80 76 76 Respiratory Rate 18 18 Blood Pressure 104/58 L 106/60 Pulse Oximetry 91 91 Oxygen Delivery Nasal Cannula Oxygen Flow Rate 2 Fraction of Inspired Oxygen 04/10/25 04:00 04/10/25 04:00 04/10/25 06:00 Temperature 97.8 F Pulse Rate 84 72 80 Respiratory Rate 18 Blood Pressure 106/51 L Pulse Oximetry 91 Oxygen Delivery Oxygen Flow Rate Fraction of Inspired Oxygen 04/10/25 06:56 04/10/25 06:56 04/10/25 08:00 Temperature 97.6 F Pulse Rate 80 80 76 Respiratory Rate 16 Blood Pressure 104/62 104/62 107/59 L Pulse Oximetry 90 Oxygen Delivery Oxygen Flow Rate Fraction of Inspired Oxygen 04/10/25 09:06 04/10/25 09:20 04/10/25 09:35 Temperature Pulse Rate 75 73 Respiratory Rate 20 Blood Pressure Pulse Oximetry 93 Oxygen Delivery Nasal Cannula Oxygen Flow Rate 4 Fraction of Inspired Oxygen 04/10/25 09:42 04/10/25 12:00 Temperature 97.8 F Pulse Rate 83 87 Respiratory Rate 20 24 H Blood Pressure 106/55 L Pulse Oximetry 92 Oxygen Delivery Oxygen Flow Rate Fraction of Inspired Oxygen Intake/Output Intake/Output: Intake & Output 04/07/25 04/08/25 04/09/25 04/10/25 23:59 23:59 23:59 23:59 Intake Total 1060.8 2108.2 2255.6 134.0 Output Total 900 1250 1100 1700 Balance 160.8 858.2 1155.6 -1566.0 Meds/Results Medications: Active Medications Generic Name Dose Route Start Last Admin Trade Name Freq PRN Reason Stop Dose Admin Acetaminophen 1,000 mg 04/06/25 13:57 04/10/25 09:06 Acetaminophen 500 Mg Tablet PO 1,000 mg Q6H PRN Administration PAIN RATED 4-6 Apixaban 2.5 mg 04/06/25 21:00 04/10/25 09:06 Apixaban 2.5 Mg Tablet PO 2.5 mg Q12HR DELMIS Administration Benzonatate 100 mg 04/06/25 14:06 Benzonatate 100 Mg Capsule PO TID PRN Cough Calcium Carbonate 500 mg 04/06/25 14:20 04/10/25 09:07 Calcium/Vitamin D 500 Mg/5 Mcg (200 I.U.) Tablet PO 500 mg DAILY DELMIS Administration Cyclosporine 1 drop 04/06/25 21:00 04/09/25 21:16 Cyclosporine 0.4 Ml Ophth Solution EACH EYE 1 drop QHS DELMIS Administration Diclofenac Sodium 0 applic 04/06/25 14:06 Diclofenac Sodium 1% 100 Gm Gel (*Bkc) TOPICAL QID PRN joint pain Diphenhydramine HCl 25 mg 04/06/25 13:57 Diphenhydramine Hcl Cap 25 Mg Capsule PO Q6H PRN allergy symptoms Empagliflozin 10 mg 04/06/25 14:20 04/10/25 09:07 Empagliflozin 10 Mg Tablet PO 10 mg DAILY DELMIS Administration Ferrous Sulfate 325 mg 04/07/25 09:00 04/09/25 08:12 Ferrous Sulfate 325 Mg Tablet PO 325 mg [id number] DELMIS Administration Furosemide 40 mg 04/09/25 17:00 04/10/25 09:08 Furosemide Inj 40 Mg/4 Ml Vial IV PUSH 40 mg BID DELMIS Administration Guaifenesin 600 mg 04/09/25 09:00 04/10/25 09:07 Guaifenesin 12 Hr 600 Mg Tabcr PO 600 mg Q12HR DELMIS Administration Guaifenesin/Codeine Phosphate 10 ml 04/06/25 13:57 Guaifenesin/Codeine (*Crx) 200/20 Mg 10 Ml Syrup PO Q4-6H PRN Cough Diltiazem HCl 100 mg in 100 mls @ 15 mls/hr 04/07/25 22:40 04/10/25 06:56 Cardizem 100 Mg/100 Ml IV CONT 15 mg/hr .Q6H40M DELMIS 15 mls/hr 15 MG/HR Administration Lactobacillus Acidophilus 1 tablet 04/07/25 09:00 04/10/25 09:07 Acidophilus/Bulgaricus Chewable Tablet PO 1 tablet DAILY DELMIS Administration Latanoprost 1 drop 04/06/25 21:00 04/09/25 21:21 Latanoprost 0.005% Op Soln 2.5 Ml Btl EACH EYE 1 drop QHS DELMIS Administration Levalbuterol HCl 0.63 mg 04/08/25 11:01 04/10/25 09:32 Levalbuterol Neb 1.25 Mg/3 Ml INHALATION 0.63 mg Q6HRT PRN Administration Wheezing Metoprolol Tartrate 50 mg 04/07/25 08:50 04/10/25 09:06 Metoprolol Tartrate 50 Mg Tab PO 50 mg DAILY DELMIS Administration Metoprolol Tartrate 100 mg 04/07/25 21:00 04/09/25 21:15 Metoprolol Tartrate 50 Mg Tab PO 100 mg HS DELMIS Administration Midodrine 10 mg 04/06/25 14:20 04/10/25 09:07 Midodrine Hcl 10 Mg Tablet PO 10 mg DAILY DELMIS Administration Pantoprazole Sodium 40 mg 04/06/25 14:20 04/10/25 09:07 Pantoprazole 40 Mg Tablet PO 40 mg QAM DELMIS Administration Potassium Chloride 20 meq 04/06/25 14:20 04/10/25 09:07 Potassium Chloride 20 Meq Er Tablet PO 20 meq DAILY DELMIS Administration Fluticasone/Salmeterol 2 puff 04/06/25 20:00 04/10/25 09:21 Fluticasone/Salmeterol 115-21 Mcg Inhaler 1 Puff INHALATION 2 puff Q12HRT DELMIS Administration Sertraline HCl 50 mg 04/06/25 14:20 04/10/25 09:08 Sertraline Hcl 50 Mg Tablet PO 50 mg DAILY DELMIS Administration Simvastatin 10 mg 04/06/25 18:00 04/09/25 18:07 Simvastatin 10 Mg Tablet PO 10 mg QPM DELMIS Administration Umeclidinium [place] 1 puff 04/07/25 08:00 04/10/25 09:21 Umeclidinium [place] 62.5 Mcg Ellipta INHALATION 1 puff DAILYRT DELMIS Administration Radiology Results: ITS Impressions Chest X-Ray 04/09/25 08:07 Impression: CHF. Findings appear progressed compared to the previous exam Labs Labs: Laboratory Results - last 24 hr 04/10/25 03:32 WBC 8.1 RBC 4.01 L Hgb 11.0 L Hct 34.7 L MCV 86.5 MCH 27.4 MCHC 31.7 L RDW 16.6 H Plt Count 205 MPV 10.1 Immature Gran % (Auto) 1.7 H Neut % (Auto) 87.9 H Lymph % (Auto) 5.5 L [place] % (Auto) 4.8 Eos % (Auto) 0.0 Baso % (Auto) 0.1 L Lymph # (Auto) 0.45 L [place] # (Auto) 0.4 Eos # (Auto) 0.0 Baso # (Auto) 0.0 Abs Immat Gran (auto) 0.14 H Absolute Neuts (auto) 7.1 H Absolute Nucleated RBC 0.000 Nucleated RBC % 0.0 Sodium 137 Potassium 4.0 Chloride 107 Carbon Dioxide 24 Anion Gap 6 BUN 33 H Creatinine 1.36 H Estim Creat Clear Calc 21 Estimated GFR 37 L Glucose 104 Calcium 8.2 L Magnesium 2.2 Total Bilirubin 0.5 AST 32 ALT 28 Alkaline Phosphatase 50 Total Protein 6.8 Albumin 3.8
[2025-04-10] MEDS: SIMVASTATIN 10 MG TABLET PO (18:31)
[2025-04-10] MEDS: METOPROLOL TARTRATE 50 MG TAB 100 MG PO (21:04)
[2025-04-10] MEDS: cycloSPORINE 0.4 ML OPHTH SOLUTION 1 DROP EACH EYE (21:05)
[2025-04-10] MEDS: LATANOPROST 0.005% OP SOLN 2.5 ML BTL 1 DROP EACH EYE (21:05)
[2025-04-11] VITALS (19 sets, daily range): BP systolic 103–137; BP diastolic 50–68; PULSE 71–94; RESP 12–20; TEMP 36.4–37; O2SAT 87–99
[2025-04-11 04:14] LABS: Hematocrit 35.6 % (37.0-47.0); Hemoglobin 10.9 g/dL (12.0-15.0); Immature Granulocyte Percent A 2.5 % (0-0.5); Lymphocytes Absolute Auto 0.51 K/mm3 (0.9-3.2); Mean Corpuscular HGB Conc 30.6 g/dl (32-36); Mean Corpuscular Hemoglobin 26.9 pg (26-34); Mean Corpuscular Volume 87.9 fl (80-100); Nucleated Red Blood Cells Absolute Auto 0.020 K/mm3 (0.0-0.012); Nucleated Red Blood Cells Perc 0.3 % (0.0-0.2); Platelet Count Result 198 k/mm3 (150-375); Red Blood Count 4.05 M/mm3 (4.2-5.4); White Blood Count 7.2 K/mm3 (4.5-10.0)
[2025-04-11 04:46] LABS: Alanine Aminotransferase 24 U/L (6-35); Albumin Level 3.6 g/dL (3.5-5.1); Alkaline Phosphatase 51 U/L (38-126); Anion Gap 3 mmol/L (4-12); Aspartate Amino Transferase 25 U/L (14-36); Bilirubin,Total 0.6 mg/dL (0.2-1.3); Blood Urea Nitrogen 29 mg/dL (7-17); Calcium 8.2 mg/dL (8.4-10.2); Carbon Dioxide 26 mmol/L (22-30); Chloride 107 mmol/L (98-107); Estimated CRCL calculation 24 ml/min; Estimated Glomerular Filt Rate 42; Glucose 101 mg/dL (65-110); Magnesium 2.6 mg/dL (1.6-2.3); Potassium 3.9 mmol/L (3.4-5.0); Sodium 136 mmol/L (137-145); Total Protein 6.5 g/dL (6.3-8.2)
[2025-04-11] MEDS: UMECLIDINIUM BROMIDE 62.5 MCG ELLIPTA 1 PUFF INHALATION (07:14)
[2025-04-11] MEDS: FLUTICASONE/SALMETEROL 115-21 MCG INHALER 1 PUFF 2 PUFF INHALATION (07:14)
[2025-04-11] MEDS: CALCIUM/VITAMIN D 500 MG/5 MCG (200 I.U.) TABLET PO (10:41)
[2025-04-11] MEDS: guaiFENesin 12 HR 600 MG TABCR PO (10:41)
[2025-04-11] MEDS: MIDODRINE HCL 10 MG TABLET PO (10:41)
[2025-04-11] MEDS: APIXABAN 2.5 MG TABLET PO (10:41)
[2025-04-11] MEDS: SERTRALINE HCL 50 MG TABLET PO (10:41)
[2025-04-11] MEDS: METOPROLOL TARTRATE 50 MG TAB PO (10:41)
[2025-04-11] MEDS: POTASSIUM CHLORIDE 20 MEQ ER TABLET PO (10:42)
[2025-04-11] MEDS: ACIDOPHILUS/BULGARICUS CHEWABLE TABLET 1 TABLET PO (10:42)
[2025-04-11] MEDS: FUROSEMIDE INJ 40 MG/4 ML VIAL IV PUSH (10:42)
[2025-04-11] MEDS: PANTOPRAZOLE 40 MG TABLET PO (10:42)
[2025-04-11] MEDS: EMPAGLIFLOZIN 10 MG TABLET PO (10:42)
[2025-04-11] MEDS: FERROUS SULFATE 325 MG TABLET PO (10:45)
[2025-04-11] MEDS: dilTIAZem HCL CD 120 MG CAP.24HR PO (12:01)
--- NOTE | 2025-04-11 13:02 | P.PNCA_ITS ---
Progress Note: A&P Assessment and Plan (1) Atrial fibrillation with rapid ventricular response: Code(s): I48.91 - Unspecified atrial fibrillation Status: Acute Assessment and Plan: She has paroxysmal atrial fibrillation, now has atrial flutter with rapid ventricular response in the setting of acute illness with pneumonia, COPD exacerbation. * She is now in a paced rhythm * Continue metoprolol at 150 mg daily * Add diltiazem 120 mg p.o. daily for additional rate control when she does go into atrial fibrillation * will stop duo nebs and change to atrovent alone * Continue anticoagulation with apixaban 2.5 mg p.o. b.i.d. * Echocardiogram demonstrates EF of 60-65% with moderate TR * Check and replace electrolytes with goals K + 4.0, magnesium 2.0 * she follows with EP as OP and was originally planned for upgrade to BIV device and AV node ablation, however, she states on last device check was only in afib 38% of the time. (2) Acute and chronic respiratory failure: Qualifiers: Respiratory failure complication: hypoxia Qualified Code(s): J96.21 - Acute and chronic respiratory failure with hypoxia Code(s): J96.20 - Acute and chronic respiratory failure, unspecified whether with hypoxia or hypercapnia Status: Acute Assessment and Plan: Secondary to COPD exacerbation, pneumonia (3) Pneumonia: Qualifiers: Pneumonia type: due to unspecified organism Laterality: bilateral Lung location: unspecified part of lung Qualified Code(s): J18.9 - Pneumonia, unspecified organism Code(s): J18.9 - Pneumonia, unspecified organism Status: Acute Assessment and Plan: Management per hospitalist (4) COPD (chronic obstructive pulmonary disease): Qualifiers: COPD type: unspecified COPD Qualified Code(s): J44.9 - Chronic obstructive pulmonary disease, unspecified Code(s): J44.9 - Chronic obstructive pulmonary disease, unspecified Status: Chronic Assessment and Plan: Management per hospitalist (5) Congestive heart failure: Qualifiers: Heart failure chronicity: acute on chronic Heart failure type: unspecified Qualified Code(s): I50.9 - Heart failure, unspecified Code(s): I50.9 - Heart failure, unspecified Status: Acute Assessment and Plan: * diastolic dysfunction EF of 60-65% acute exacerbation in setting of afib with RVR * continued SOB although improved * pBNP remains elevated at 6760 * Repeat CXR continues to show pulmonary edema and small pleural effusions * Continue furosemide 40 mg IV daily * monitor renal function and electrolytes closely with diuretic (6) Hypotension: Code(s): I95.9 - Hypotension, unspecified Status: Acute Assessment and Plan: * BP stable at this time * she is on her home midodrine 10 mg daily * will continue to monitor with rate lowering agents Plan No additional cardiac recommendations to make at this time. Cardiology will follow on an as-needed basis. Please call with any questions. Subjective Date/time seen: 04/11/25 13:02 Interval history: Cardiology follow-up visit for atrial fibrillation Date of Service 04/09/25: Patient sitting up in bed. Remains on O2 per NC. Her is at the bedside. She states breathing feels improved. Denies any chest pain or pressure. No palpitations. Date of service 04/10/2025: Feeling better today. Does not feel short of breath. Telemetry shows paced rhythm. Date of service 04/11/2025: Continues to feel well. Remains on supplemental oxygen per nasal cannula. However, does not feel short of breath. She does not have any palpitations, chest pain, swelling. Remains generally in a paced rhythm but does have intermittent atrial fibrillation with RVR with rates in the 150s to 160s. She does not feel symptoms of this. Review of Systems Review of Systems: All systems reviewed & are unremarkable except as noted in HPI and below Exam Const: General: comfortable, no acute distress, alert and awake Orientation/consciousness: patient oriented x3 Other: Sitting in the chair HENMT: Head: normal to inspection Eyes: General: appearance normal, both eyes and all related structures Sclera: sclerae normal Pupils: Equal, round and reactive pupils present Neck: Neck: normal visual inspection, supple and No no JVD Thyroid: thyroid normal Carotids: normal carotid upstroke Resp: Effort & Inspection: normal respiratory effort Auscultation: clear to auscultation bilaterally and crackles Other: On supplemental oxygen per nasal cannula Cardio: Rate: regular rate Rhythm: regular rhythm Heart sounds: S1 normal heart sound present, S2 normal heart sound present, no gallops, no murmurs and no rubs GI: Auscultation: normal bowel sounds Skin: General skin exam: normal color Neuro: General: patient oriented x3 Cranial nerves: Yes Equal, round and reactive pupils present Speech: normal speech Extrem: General: normal to inspection and no edema Psych: Appearance: grossly normal Mental Status: mental status grossly normal Objective Data Vital Signs Vital Signs: Vital Signs - 24 hr 04/10/25 13:10 04/10/25 14:00 04/10/25 16:00 Temperature Pulse Rate 79 86 74 Respiratory Rate Blood Pressure Pulse Oximetry Oxygen Delivery Oxygen Flow Rate 04/10/25 16:00 04/10/25 18:00 04/10/25 20:00 Temperature 36.8 C 36.4 C Pulse Rate 69 76 83 Respiratory Rate 20 20 Blood Pressure 107/59 L 118/58 L Pulse Oximetry 93 94 Oxygen Delivery Oxygen Flow Rate 04/10/25 20:00 04/10/25 20:40 04/10/25 20:40 Temperature Pulse Rate 82 92 92 Respiratory Rate 18 18 Blood Pressure Pulse Oximetry 92 Oxygen Delivery Nasal Cannula Oxygen Flow Rate 3 04/10/25 21:04 04/10/25 22:00 04/11/25 00:00 Temperature 36.4 C Pulse Rate 88 75 84 Respiratory Rate 20 Blood Pressure 103/53 L Pulse Oximetry 92 Oxygen Delivery Oxygen Flow Rate 04/11/25 00:00 04/11/25 02:00 04/11/25 04:00 Temperature Pulse Rate 71 89 89 Respiratory Rate Blood Pressure Pulse Oximetry Oxygen Delivery Oxygen Flow Rate 04/11/25 04:00 04/11/25 06:00 04/11/25 07:17 Temperature 36.4 C Pulse Rate 94 75 Respiratory Rate 20 Blood Pressure 129/68 Pulse Oximetry 91 93 Oxygen Delivery Nasal Cannula Oxygen Flow Rate 4 04/11/25 08:00 04/11/25 10:41 04/11/25 11:55 Temperature 36.9 C 37.0 C Pulse Rate 83 73 73 Respiratory Rate 16 20 Blood Pressure 137/61 129/50 L Pulse Oximetry 95 99 Oxygen Delivery Oxygen Flow Rate Intake/Output Intake/Output: Intake & Output 04/08/25 04/09/25 04/10/25 04/11/25 23:59 23:59 23:59 23:59 Intake Total 2108.2 2255.6 1147.5 240 Output Total 1250 1100 2700 500 Balance 858.2 1155.6 -1552.5 -260 Meds/Results Medications: Active Medications Generic Name Dose Route Start Last Admin Trade Name Freq PRN Reason Stop Dose Admin Acetaminophen 1,000 mg 04/06/25 13:57 04/10/25 21:09 Acetaminophen 500 Mg Tablet PO 1,000 mg Q6H PRN Administration PAIN RATED 4-6 Apixaban 2.5 mg 04/06/25 21:00 04/11/25 10:41 Apixaban 2.5 Mg Tablet PO 2.5 mg Q12HR MALINDA Administration Benzonatate 100 mg 04/06/25 14:06 Benzonatate 100 Mg Capsule PO TID PRN Cough Calcium Carbonate 500 mg 04/06/25 14:20 04/11/25 10:41 Calcium/Vitamin D 500 Mg/5 Mcg (200 I.U.) Tablet PO 500 mg DAILY MALINDA Administration Cyclosporine 1 drop 04/06/25 21:00 04/10/25 21:05 Cyclosporine 0.4 Ml Ophth Solution EACH EYE 1 drop QHS MALINDA Administration Diclofenac Sodium 0 applic 04/06/25 14:06 Diclofenac Sodium 1% 100 Gm Gel (*Bkc) TOPICAL QID PRN joint pain Diltiazem HCl 120 mg 04/11/25 11:10 04/11/25 12:01 Diltiazem Hcl Cd 120 Mg Cap.24hr PO 120 mg QAM MALINDA Administration Diphenhydramine HCl 25 mg 04/06/25 13:57 Diphenhydramine Hcl Cap 25 Mg Capsule PO Q6H PRN allergy symptoms Empagliflozin 10 mg 04/06/25 14:20 04/11/25 10:42 Empagliflozin 10 Mg Tablet PO 10 mg DAILY MALINDA Administration Ferrous Sulfate 325 mg 04/07/25 09:00 04/11/25 10:45 Ferrous Sulfate 325 Mg Tablet PO 325 mg [id number] MALINDA Administration Furosemide 40 mg 04/11/25 09:00 04/11/25 10:42 Furosemide Inj 40 Mg/4 Ml Vial IV PUSH 40 mg DAILY MALINDA Administration Guaifenesin 600 mg 04/09/25 09:00 04/11/25 10:41 Guaifenesin 12 Hr 600 Mg Tabcr PO 600 mg Q12HR MALINDA Administration Guaifenesin/Codeine Phosphate 10 ml 04/06/25 13:57 Guaifenesin/Codeine (*Crx) 200/20 Mg 10 Ml Syrup PO Q4-6H PRN Cough Lactobacillus Acidophilus 1 tablet 04/07/25 09:00 04/11/25 10:42 Acidophilus/[place]gar[place] Chewable Tablet PO 1 tablet DAILY MALINDA Administration Latanoprost 1 drop 04/06/25 21:00 04/10/25 21:05 Latanoprost 0.005% Op Soln 2.5 Ml Btl EACH EYE 1 drop QHS MALINDA Administration Levalbuterol HCl 0.63 mg 04/08/25 11:01 04/10/25 09:32 Levalbuterol Neb 1.25 Mg/3 Ml INHALATION 0.63 mg Q6HRT PRN Administration Wheezing Metoprolol Tartrate 50 mg 04/07/25 08:50 04/11/25 10:41 Metoprolol Tartrate 50 Mg Tab PO 50 mg DAILY MAILNDA Administration Metoprolol Tartrate 100 mg 04/07/25 21:00 04/10/25 21:04 Metoprolol Tartrate 50 Mg Tab PO 100 mg HS MALINDA Administration Midodrine 10 mg 04/06/25 14:20 04/11/25 10:41 Midodrine Hcl 10 Mg Tablet PO 10 mg DAILY MALINDA Administration Pantoprazole Sodium 40 mg 04/06/25 14:20 04/11/25 10:42 Pantoprazole 40 Mg Tablet PO 40 mg QAM MALINDA Administration Potassium Chloride 20 meq 04/06/25 14:20 04/11/25 10:42 Potassium Chloride 20 Meq Er Tablet PO 20 meq DAILY MALINDA Administration Fluticasone/Salmeterol 2 puff 04/06/25 20:00 04/11/25 07:14 Fluticasone/Salmeterol 115-21 Mcg Inhaler 1 Puff INHALATION 2 puff Q12HRT MALINDA Administration Sertraline HCl 50 mg 04/06/25 14:20 04/11/25 10:41 Sertraline Hcl 50 Mg Tablet PO 50 mg DAILY MALINDA Administration Simvastatin 10 mg 04/06/25 18:00 04/10/25 18:31 Simvastatin 10 Mg Tablet PO 10 mg QPM MALINDA Administration Umeclidinium [place] 1 puff 04/07/25 08:00 04/11/25 07:14 Umeclidinium [place] 62.5 Mcg Ellipta INHALATION 1 puff DAILYRT MALINDA Administration Radiology Results: ITS Impressions Chest X-Ray 04/11/25 08:03 IMPRESSION: 1. No significant change in cardiomegaly and findings consistent with congestive heart failure including pulmonary vascular congestion, mild pulmonary edema in the mid to lower lungs. Differential includes less likely pneumonia. 2. Small bilateral pleural effusions. Labs Labs: Laboratory Results - last 24 hr 04/11/25 03:52 WBC 7.2 RBC 4.05 L Hgb 10.9 L Hct 35.6 L MCV 87.9 MCH 26.9 MCHC 30.6 L RDW 16.2 H Plt Count 198 MPV 10.3 Immature Gran % (Auto) 2.5 H Neut % (Auto) 85.3 H Lymph % (Auto) 7.0 L [place] % (Auto) 4.8 Eos % (Auto) 0.0 Baso % (Auto) 0.4 Lymph # (Auto) 0.51 L [place] # (Auto) 0.4 Eos # (Auto) 0.0 Baso # (Auto) 0.0 Abs Immat Gran (auto) 0.18 H Absolute Neuts (auto) 6.2 Absolute Nucleated RBC 0.020 H Nucleated RBC % 0.3 H Sodium 136 L Potassium 3.9 Chloride 107 Carbon Dioxide 26 Anion Gap 3 L BUN 29 H Creatinine 1.20 H Estim Creat Clear Calc 24 Estimated GFR 42 L Glucose 101 Calcium 8.2 L Magnesium 2.6 H Total Bilirubin 0.6 AST 25 ALT 24 Alkaline Phosphatase 51 Total Protein 6.5 Albumin 3.6 Quality VTE Prophylaxis VTE prophylaxis: pharmacologic ordered
--- NOTE | 2025-04-11 14:08 | PM.IMPN2 ---
Assessment and Plan Assessment and Plan (1) Acute and chronic respiratory failure: Qualifiers: Respiratory failure complication: hypoxia Qualified Code(s): J96.21 - Acute and chronic respiratory failure with hypoxia Code(s): J96.20 - Acute and chronic respiratory failure, unspecified whether with hypoxia or hypercapnia Status: Acute Assessment and Plan: At baseline patient has chronic respiratory failure and utilizes home O2 as needed (typically when using the stairs or in the shower) and HS. Per EMS, patient 80% on room air upon their arrival. Maintaining O2 sats with 4 L nasal cannula, however due to work of breathing was placed on BiPAP. Workup concerning for pneumonia, CHF exacerbation, and AFib RVR. New hypoxia likely multifactorial due to the aforementioned. - BiPAP initiated on 04/06, continue inpatient for work of breathing - reviewed initial ABG, no significant abnormalities - started on broad-spectrum antibiotics for CAP - XR concerning for pulmonary edema and pneumonia, plan for diuresis - continue supplemental oxygen to maintain O2 sat greater than 92% - patient additionally has underlying COPD, DuoNeb scheduled and initiation of steroids On prednisone 40 mg daily and completed 5 days course (2) Atrial fibrillation with rapid ventricular response: Code(s): I48.91 - Unspecified atrial fibrillation Status: Acute Assessment and Plan: Initially EKG concerning for atrial flutter/tachycardia with RVR, rate 133. Initial heart rate upon arrival in the 140s. Patient has history of AFib on metoprolol and Eliquis. Suspect flare due to acute illness. - started on diltiazem gtt on 04/06, currently requiring 15 mg/hr - updating echo - TSH 0.302 with normal free T4 recheck as outpatient basis - continue Eliquis - consult cardiology Restarted diltiazem drip. Restart metoprolol. Increased diltiazem 15 milligram/hour heart rate better Echo with normal EF receeived iv digoxin. further care per cardiology cv planned if needed which is deferred as no rate control. Diltiazem drip has been switched to oral diltiazem. ppm interrogation in process (3) Sepsis: Qualifiers: Sepsis type: sepsis due to unspecified organism Sepsis acute organ dysfunction status: with acute organ dysfunction Severe sepsis acute organ dysfunction type: acute respiratory failure Acute respiratory failure type: with hypoxia Severe sepsis shock status: without septic shock Qualified Code(s): A41.9 - Sepsis, unspecified organism; R65.20 - Severe sepsis without septic shock; J96.01 - Acute respiratory failure with hypoxia Code(s): A41.9 - Sepsis, unspecified organism Status: Acute Assessment and Plan: Patient met SIRS criteria due to heart rate and tachypnea. However heart rate secondary to AFib/atrial flutter. However, patient does have suspected source -> pneumonia and has been reporting congestion/cough/shortness of breath. +hypoxia. Patient also found to be febrile, 100.5? F. - follow blood culture - lactic acid normal - current concern for CHF exacerbation, will hold on further IV fluids at this time. Was given a 1L bolus in the ED. (4) Congestive heart failure: Qualifiers: Heart failure chronicity: acute on chronic Heart failure type: unspecified Qualified Code(s): I50.9 - Heart failure, unspecified Code(s): I50.9 - Heart failure, unspecified Status: Acute Assessment and Plan: Reporting suggestive shortness of breath, new hypoxia. CXR from 04/06 concerning for pulmonary edema. BNP additionally elevated at 8130. History of CHF, currently acute on chronic. No previous echo on file. - update echo - Lasix 40 mg IV daily, hold home Torsemide 20 mg daily - monitor I&Os daily weights - trend renal function On chronic midodrine therapy Chest x-ray with moderate pulmonary vascular congestion Continue diuresis with Lasix BNP repeat 6760 improved continue diuresis as ordered Chest x-ray seems improved. (5) Pneumonia: Qualifiers: Pneumonia type: due to unspecified organism Laterality: bilateral Lung location: unspecified part of lung Qualified Code(s): J18.9 - Pneumonia, unspecified organism Code(s): J18.9 - Pneumonia, unspecified organism Status: Acute Assessment and Plan: CXR concerning for interstitial pulmonary edema and/or multifocal airspace disease. Patient has elevated BN P making CHF exacerbation likely, however she is additionally reporting congestion/cough/diarrhea which increases suspicion for viral illness/subsequent pneumonia. WBC 9.2 upon admission. Patient did have an elevated heart rate and tachypneic, meeting SIRS/sepsis criteria. - started on ceftriaxone and azithromycin on 04/06 - Tessalon Perles, guaifenesin/codeine p.r.n. for cough, DuoNebs delmis -influenza RSV COVID swab negative Add Mucinex switched to oral antibiotics (6) COPD (chronic obstructive pulmonary disease): Qualifiers: COPD type: unspecified COPD Qualified Code(s): J44.9 - Chronic obstructive pulmonary disease, unspecified Code(s): J44.9 - Chronic obstructive pulmonary disease, unspecified Status: Chronic Assessment and Plan: - DuoNechristopher delmis - prednisone 40 mg x 5 days completed - continue home maintenance medications Plan 89 y/o F with PMH of Afib, COPD, chronic respiratory failure on supplemental O2 p.r.n. and HS, HTN, HLD, RA, and CHF presents here with shortness of breath. The patient presents here from home via EMS on 04/06 for further evaluation of shortness of breath. She reports onset of dyspnea approximately 2 days ago. Shortness of breath has been progressive. She then developed cough, congestion, nausea with dry heaving but no vomiting, chills, and diarrhea yesterday (04/05). She has been utilizing her home breathing treatments with minimal relief. No new symptoms today. Denies chest pain, palpitations, lower extremity swelling, or weight gain. She is on supplemental O2 as needed (typically used when taking the stairs or when taking a shower) and at night as needed - 2L NC. Per EMS, upon arrival the patient was 80% on room air and was subsequently placed on 4L NC and given a DuoNeb. She arrived 94% on 4L. Initial VS at presentation: 98.6? F, HR 141, RR 27, 133/86, and 94% on 4L nasal cannula. ED workup showed: No leukocytosis, no anemia, initial ABG showed a mildly reduced CO2 level, mildly reduced O2 level, with no acidosis/alkalosis, creatinine 1.09 and GFR 47, glucose 115, BNP 8130. EKG showed atrial flutter/tachycardia with RVR, left axis deviation, possible right ventricular conduction delay, delayed precordial R/S transition, borderline ST-T-wave abnormality lateral/high leads. CXR showed interstitial pulmonary edema and or multifocal airspace disease. Diet: Heart healthy DVT Prophylaxis: Eliquis IV fluids: 1L bolus, now diuresing Lines/Tubes: pIV Code Status: full code Subjective Date/time seen: 04/11/25 14:08 Interval history: No overnight events. Patient has been tapered off of diltiazem drip. Heart rate is controlled. Intermittent AFib noted. Mostly paced rhythm. Cough has improved. Denies any shortness of breath. Ambulated with therapy as well as with the nursing staff. On 4 L oxygen. Review of Systems Review of Systems: All systems reviewed & are unremarkable except as noted in HPI and below Exam Narrative: APPEARANCE: Well-appearing not in acute distress HEAD: normocephalic, atraumatic. EYES: PERRLA/EOMI, conjunctivae clear. NOSE: Normal no drainage NECK: Supple. No adenopathy, no masses. RESPIRATORY: Airway patent, respirations nonlabored. Clear to auscultation bilaterally, no rales, rhonchi, wheezing. CARDIOVASCULAR: regular rate and rhythm, telemetry reivewed ABDOMINAL: Soft, nontender, nondistended, normal bowel sounds MUSCULOSKELETAL: Moves all extremities. Strength/ROM intact, No edema, No calf tenderness. NEURO: Alert. Cranial nerves II through XII intact. Good gait. Good coordination SKIN: Warm, dry. Normal Color Objective Data Vital Signs Vital Signs: Vital Signs - 24 hr 04/10/25 16:00 04/10/25 16:00 04/10/25 18:00 Temperature 98.3 F Pulse Rate 74 69 76 Respiratory Rate 20 Blood Pressure 107/59 L Pulse Oximetry 93 Oxygen Delivery Oxygen Flow Rate Fraction of Inspired Oxygen 04/10/25 20:00 04/10/25 20:00 04/10/25 20:40 Temperature 97.6 F Pulse Rate 83 82 92 Respiratory Rate 20 18 Blood Pressure 118/58 L Pulse Oximetry 94 92 Oxygen Delivery Nasal Cannula Oxygen Flow Rate 3 Fraction of Inspired Oxygen 04/10/25 20:40 04/10/25 21:04 04/10/25 22:00 Temperature Pulse Rate 92 88 75 Respiratory Rate 18 Blood Pressure Pulse Oximetry Oxygen Delivery Oxygen Flow Rate Fraction of Inspired Oxygen 04/11/25 00:00 04/11/25 00:00 04/11/25 02:00 Temperature 97.6 F Pulse Rate 84 71 89 Respiratory Rate 20 Blood Pressure 103/53 L Pulse Oximetry 92 Oxygen Delivery Oxygen Flow Rate Fraction of Inspired Oxygen 04/11/25 04:00 04/11/25 04:00 04/11/25 06:00 Temperature 97.6 F Pulse Rate 89 94 75 Respiratory Rate 20 Blood Pressure 129/68 Pulse Oximetry 91 Oxygen Delivery Oxygen Flow Rate Fraction of Inspired Oxygen 04/11/25 07:17 04/11/25 08:00 04/11/25 08:00 Temperature 98.4 F Pulse Rate 83 Respiratory Rate 16 Blood Pressure 137/61 Pulse Oximetry 93 95 96 Oxygen Delivery Nasal Cannula Nasal Cannula Oxygen Flow Rate 4 4 Fraction of Inspired Oxygen 04/11/25 08:00 04/11/25 10:00 04/11/25 10:41 Temperature Pulse Rate 77 74 73 Respiratory Rate Blood Pressure Pulse Oximetry Oxygen Delivery Oxygen Flow Rate Fraction of Inspired Oxygen 04/11/25 11:55 04/11/25 12:00 04/11/25 13:00 Temperature 98.6 F Pulse Rate 73 72 Respiratory Rate 20 Blood Pressure 129/50 L Pulse Oximetry 99 96 Oxygen Delivery Nasal Cannula Oxygen Flow Rate 2 Fraction of Inspired Oxygen 96 04/11/25 13:09 04/11/25 13:29 Temperature Pulse Rate Respiratory Rate Blood Pressure Pulse Oximetry 92 Oxygen Delivery Nasal Cannula Room Air Oxygen Flow Rate 2 Fraction of Inspired Oxygen 92 Intake/Output Intake/Output: Intake & Output 04/08/25 04/09/25 04/10/25 04/11/25 23:59 23:59 23:59 23:59 Intake Total 2108.2 2255.6 1147.5 480 Output Total 1250 1100 2700 500 Balance 858.2 1155.6 -1552.5 -20 Meds/Results Medications: Active Medications Generic Name Dose Route Start Last Admin Trade Name Freq PRN Reason Stop Dose Admin Acetaminophen 1,000 mg 04/06/25 13:57 04/10/25 21:09 Acetaminophen 500 Mg Tablet PO 1,000 mg Q6H PRN Administration PAIN RATED 4-6 Apixaban 2.5 mg 04/06/25 21:00 04/11/25 10:41 Apixaban 2.5 Mg Tablet PO 2.5 mg Q12HR DELMIS Administration Benzonatate 100 mg 04/06/25 14:06 Benzonatate 100 Mg Capsule PO TID PRN Cough Calcium Carbonate 500 mg 04/06/25 14:20 04/11/25 10:41 Calcium/Vitamin D 500 Mg/5 Mcg (200 I.U.) Tablet PO 500 mg DAILY DELMIS Administration Cyclosporine 1 drop 04/06/25 21:00 04/10/25 21:05 Cyclosporine 0.4 Ml Ophth Solution EACH EYE 1 drop QHS DELMIS Administration Diclofenac Sodium 0 applic 04/06/25 14:06 Diclofenac Sodium 1% 100 Gm Gel (*Bkc) TOPICAL QID PRN joint pain Diltiazem HCl 120 mg 04/11/25 11:10 04/11/25 12:01 Diltiazem Hcl Cd 120 Mg Cap.24hr PO 120 mg QAM DELMIS Administration Diphenhydramine HCl 25 mg 04/06/25 13:57 Diphenhydramine Hcl Cap 25 Mg Capsule PO Q6H PRN allergy symptoms Empagliflozin 10 mg 04/06/25 14:20 04/11/25 10:42 Empagliflozin 10 Mg Tablet PO 10 mg DAILY DELMIS Administration Ferrous Sulfate 325 mg 04/07/25 09:00 04/11/25 10:45 Ferrous Sulfate 325 Mg Tablet PO 325 mg [id number] DELMIS Administration Furosemide 40 mg 04/11/25 09:00 04/11/25 10:42 Furosemide Inj 40 Mg/4 Ml Vial IV PUSH 40 mg DAILY DELMIS Administration Guaifenesin 600 mg 04/09/25 09:00 04/11/25 10:41 Guaifenesin 12 Hr 600 Mg Tabcr PO 600 mg Q12HR DELMIS Administration Guaifenesin/Codeine Phosphate 10 ml 04/06/25 13:57 Guaifenesin/Codeine (*Crx) 200/20 Mg 10 Ml Syrup PO Q4-6H PRN Cough Lactobacillus Acidophilus 1 tablet 04/07/25 09:00 04/11/25 10:42 Acidophilus/Bulgaricus Chewable Tablet PO 1 tablet DAILY DELMIS Administration Latanoprost 1 drop 04/06/25 21:00 04/10/25 21:05 Latanoprost 0.005% Op Soln 2.5 Ml Btl EACH EYE 1 drop QHS DELMIS Administration Levalbuterol HCl 0.63 mg 04/08/25 11:01 04/10/25 09:32 Levalbuterol Neb 1.25 Mg/3 Ml INHALATION 0.63 mg Q6HRT PRN Administration Wheezing Metoprolol Tartrate 50 mg 04/07/25 08:50 04/11/25 10:41 Metoprolol Tartrate 50 Mg Tab PO 50 mg DAILY DELMIS Administration Metoprolol Tartrate 100 mg 04/07/25 21:00 04/10/25 21:04 Metoprolol Tartrate 50 Mg Tab PO 100 mg HS DELMIS Administration Midodrine 10 mg 04/06/25 14:20 04/11/25 10:41 Midodrine Hcl 10 Mg Tablet PO 10 mg DAILY DELMIS Administration Pantoprazole Sodium 40 mg 04/06/25 14:20 04/11/25 10:42 Pantoprazole 40 Mg Tablet PO 40 mg QAM DELMIS Administration Potassium Chloride 20 meq 04/06/25 14:20 04/11/25 10:42 Potassium Chloride 20 Meq Er Tablet PO 20 meq DAILY DELMIS Administration Fluticasone/Salmeterol 2 puff 04/06/25 20:00 04/11/25 07:14 Fluticasone/Salmeterol 115-21 Mcg Inhaler 1 Puff INHALATION 2 puff Q12HRT DELMIS Administration Sertraline HCl 50 mg 04/06/25 14:20 04/11/25 10:41 Sertraline Hcl 50 Mg Tablet PO 50 mg DAILY DELMIS Administration Simvastatin 10 mg 04/06/25 18:00 04/10/25 18:31 Simvastatin 10 Mg Tablet PO 10 mg QPM DELMIS Administration Umeclidinium [place] 1 puff 04/07/25 08:00 04/11/25 07:14 Umeclidinium [place] 62.5 Mcg Ellipta INHALATION 1 puff DAILYRT DELMIS Administration Radiology Results: ITS Impressions Chest X-Ray 04/11/25 08:03 IMPRESSION: 1. No significant change in cardiomegaly and findings consistent with congestive heart failure including pulmonary vascular congestion, mild pulmonary edema in the mid to lower lungs. Differential includes less likely pneumonia. 2. Small bilateral pleural effusions. Labs Labs: Laboratory Results - last 24 hr 04/11/25 03:52 WBC 7.2 RBC 4.05 L Hgb 10.9 L Hct 35.6 L MCV 87.9 MCH 26.9 MCHC 30.6 L RDW 16.2 H Plt Count 198 MPV 10.3 Immature Gran % (Auto) 2.5 H Neut % (Auto) 85.3 H Lymph % (Auto) 7.0 L [place] % (Auto) 4.8 Eos % (Auto) 0.0 Baso % (Auto) 0.4 Lymph # (Auto) 0.51 L [place] # (Auto) 0.4 Eos # (Auto) 0.0 Baso # (Auto) 0.0 Abs Immat Gran (auto) 0.18 H Absolute Neuts (auto) 6.2 Absolute Nucleated RBC 0.020 H Nucleated RBC % 0.3 H Sodium 136 L Potassium 3.9 Chloride 107 Carbon Dioxide 26 Anion Gap 3 L BUN 29 H Creatinine 1.20 H Estim Creat Clear Calc 24 Estimated GFR 42 L Glucose 101 Calcium 8.2 L Magnesium 2.6 H Total Bilirubin 0.6 AST 25 ALT 24 Alkaline Phosphatase 51 Total Protein 6.5 Albumin 3.6
--- NOTE | 2025-04-11 16:07 | PCRCNOTE ---
Home O2 eval completed, no changes from previous needs. 2l rest and 3 with activity. Pt has [employer] and has been given a surplus of E tanks for travel.
--- NOTE | 2025-04-11 16:10 | HOMEO2EVAL ---
Evaluation was performed at [facility] Home Oxygen Evaluation RC: Home Oxygen (O2) Evaluation Start: 04/11/25 14:08 Freq: ONCE Status: Active Protocol: RPE Activity Type Activity Date Activity User E-sign Co-sign Detail Recorded Client Recorded Date Recorded By Document 04/11/25 15:40 ANEESH [email or web address] 04/11/25 16:05 ANEESH Document 04/11/25 15:41 ANEESH [email or web address] 04/11/25 16:05 ANEESH Document 04/11/25 15:43 ANEESH [email or web address] 04/11/25 16:05 ANEESH Document 04/11/25 15:45 ANEESH [email or web address] 04/11/25 16:05 ANEESH Document 04/11/25 15:50 ANEESH [email or web address] 04/11/25 16:05 ANEESH 04/11/25 04/11/25 04/11/25 15:40 15:41 15:43 Home O2 Evaluation [Oxygen] -Test Phase Resting Resting Exercise -Oxygen Delivery Room Air Nasal Cannula Nasal Cannula -Oxygen Flow Rate (L/min) 2 2 [Pulse Oximetry] -Pulse Oximetry (90-100 %) 87 L 93 87 L [Exercise] -Ambulation Distance (feet) -Ambulation Distance (meters) [Comments] -Home Oxygen Evaluation Comments [Charges] -Evaluation Charges O2 Evaluation by Pulmonary 04/11/25 04/11/25 15:45 15:50 Home O2 Evaluation [Oxygen] -Test Phase Exercise Resting -Oxygen Delivery Nasal Cannula Nasal Cannula -Oxygen Flow Rate (L/min) 3 2 [Pulse Oximetry] -Pulse Oximetry (90-100 %) 90 93 [Exercise] -Ambulation Distance (feet) 300 -Ambulation Distance (meters) 91.43 [Comments] -Home Oxygen Evaluation Comments Pt requires 2 liter at rest and 3 liters with activity [Charges] -Evaluation Charges
--- NOTE | 2025-04-11 16:16 | PM.DS ---
DS: Admitting Diagnosis Discharge Date 04/11/2025 Admitting Diagnosis Shortness of breath DS: Discharge Diagnosis Discharge Diagnosis (1) Acute and chronic respiratory failure: Qualifiers: Respiratory failure complication: hypoxia Qualified Code(s): J96.21 - Acute and chronic respiratory failure with hypoxia Code(s): J96.20 - Acute and chronic respiratory failure, unspecified whether with hypoxia or hypercapnia Status: Acute (2) Atrial fibrillation with rapid ventricular response: Code(s): I48.91 - Unspecified atrial fibrillation Status: Acute (3) Sepsis: Qualifiers: Sepsis type: sepsis due to unspecified organism Sepsis acute organ dysfunction status: with acute organ dysfunction Severe sepsis acute organ dysfunction type: acute respiratory failure Acute respiratory failure type: with hypoxia Severe sepsis shock status: without septic shock Qualified Code(s): A41.9 - Sepsis, unspecified organism; R65.20 - Severe sepsis without septic shock; J96.01 - Acute respiratory failure with hypoxia Code(s): A41.9 - Sepsis, unspecified organism Status: Acute (4) Congestive heart failure: Qualifiers: Heart failure chronicity: acute on chronic Heart failure type: unspecified Qualified Code(s): I50.9 - Heart failure, unspecified Code(s): I50.9 - Heart failure, unspecified Status: Acute (5) Pneumonia: Qualifiers: Pneumonia type: due to unspecified organism Laterality: bilateral Lung location: unspecified part of lung Qualified Code(s): J18.9 - Pneumonia, unspecified organism Code(s): J18.9 - Pneumonia, unspecified organism Status: Acute (6) COPD (chronic obstructive pulmonary disease): Qualifiers: COPD type: unspecified COPD Qualified Code(s): J44.9 - Chronic obstructive pulmonary disease, unspecified Code(s): J44.9 - Chronic obstructive pulmonary disease, unspecified Status: Chronic DS: Summary Hospital Course Hospital Course: 89 y/o F with PMH of Afib, COPD, chronic respiratory failure on supplemental O2 p.r.n. and HS, HTN, HLD, RA, and CHF presents here with shortness of breath. The patient presents here from home via EMS on 04/06 for further evaluation of shortness of breath. She reports onset of dyspnea approximately 2 days ago. Shortness of breath has been progressive. She then developed cough, congestion, nausea with dry heaving but no vomiting, chills, and diarrhea yesterday (04/05). She has been utilizing her home breathing treatments with minimal relief. No new symptoms today. Denies chest pain, palpitations, lower extremity swelling, or weight gain. She is on supplemental O2 as needed (typically used when taking the stairs or when taking a shower) and at night as needed - 2L NC. Per EMS, upon arrival the patient was 80% on room air and was subsequently placed on 4L NC and given a DuoNeb. She arrived 94% on 4L. Initial VS at presentation: 98.6? F, HR 141, RR 27, 133/86, and 94% on 4L nasal cannula. ED workup showed: No leukocytosis, no anemia, initial ABG showed a mildly reduced CO2 level, mildly reduced O2 level, with no acidosis/alkalosis, creatinine 1.09 and GFR 47, glucose 115, BNP 8130. EKG showed atrial flutter/tachycardia with RVR, left axis deviation, possible right ventricular conduction delay, delayed precordial R/S transition, borderline ST-T-wave abnormality lateral/high leads. CXR showed interstitial pulmonary edema and or multifocal airspace disease. # Acute and chronic respiratory failure: At baseline patient has chronic respiratory failure and utilizes home O2 as needed (typically when using the stairs or in the shower) and HS. Per EMS, patient 80% on room air upon their arrival. Maintaining O2 sats with 4 L nasal cannula, however due to work of breathing was placed on BiPAP. Workup concerning for pneumonia, CHF exacerbation, and AFib RVR. New hypoxia likely multifactorial due to the aforementioned. - BiPAP initiated on 04/06, continue inpatient for work of breathing which has been tapered off - reviewed initial ABG, no significant abnormalities - started on broad-spectrum antibiotics for CAP - XR concerning for pulmonary edema and pneumonia, plan for diuresis - continue supplemental oxygen to maintain O2 sat greater than 92% - patient additionally has underlying COPD, DuoNeb scheduled and initiation of steroids On prednisone 40 mg daily and completed 5 days course Continued on IV diuresis which will be switched to oral # Atrial fibrillation with rapid ventricular response: Initially EKG concerning for atrial flutter/tachycardia with RVR, rate 133. Initial heart rate upon arrival in the 140s. Patient has history of AFib on metoprolol and Eliquis. Suspect flare due to acute illness. Patient was started on diltiazem gtt on 04/06, currently requiring 15 mg/hr - TSH 0.302 with normal free T4 recheck as outpatient basis - continue Eliquis - consult cardiology Restarted diltiazem drip. Restart metoprolol. Increased diltiazem 15 milligram/hour heart rate better Echo with normal EF receeived iv digoxin 04/09/2025. cv planned if needed which is deferred as no rate control. Diltiazem drip has been switched to oral diltiazem. Heart rate controlled ppm interrogation in process # Sepsis: Patient met SIRS criteria due to heart rate and tachypnea. However heart rate secondary to AFib/atrial flutter. However, patient does have suspected source -> pneumonia and has been reporting congestion/cough/shortness of breath. +hypoxia. Patient also found to be febrile, 100.5? F. - follow blood culture - lactic acid normal - current concern for CHF exacerbation, will hold on further IV fluids at this time. Was given a 1L bolus in the ED. Sepsis resolved # Congestive heart failure: Reporting suggestive shortness of breath, new hypoxia. CXR from 04/06 concerning for pulmonary edema. BNP additionally elevated at 8130. History of CHF, currently acute on chronic. No previous echo on file. - update echo - Lasix 40 mg IV daily, hold home Torsemide 20 mg daily - monitor I&Os daily weights - trend renal function On chronic midodrine therapy Chest x-ray with moderate pulmonary vascular congestion Continue diuresis with Lasix BNP repeat 6760 improved continue diuresis as ordered Chest x-ray seems improved. Switched to torsemide at discharge home dose # Pneumonia: CXR concerning for interstitial pulmonary edema and/or multifocal airspace disease. Patient has elevated BN P making CHF exacerbation likely, however she is additionally reporting congestion/cough/diarrhea which increases suspicion for viral illness/subsequent pneumonia. WBC 9.2 upon admission. Patient did have an elevated heart rate and tachypneic, meeting SIRS/sepsis criteria. - started on ceftriaxone and azithromycin on 04/06 - Tessalon Perles, guaifenesin/codeine p.r.n. for cough, DuoNebs [facility] [place] -influenza RSV COVID swab negative Add Mucinex switched to oral antibiotics and finished the course during hospital stay # COPD (chronic obstructive pulmonary disease): - DuoNebs delmis DuoNeb switched to levalbuterol due to AFib - prednisone 40 mg x 5 days completed - continue home maintenance medications # Diet: Heart healthy # DVT Prophylaxis: Eliquis # Code Status: full code Time Spent with Patient Time attestation: Total time spent providing and/or coordinating discharge services: 45 minutes Exam Narrative: APPEARANCE: Well-appearing not in acute distress HEAD: normocephalic, atraumatic. EYES: PERRLA/EOMI, conjunctivae clear. NOSE: Normal no drainage NECK: Supple. No adenopathy, no masses. RESPIRATORY: Airway patent, respirations nonlabored. Clear to auscultation bilaterally, no rales, rhonchi, wheezing. CARDIOVASCULAR: regular rate and rhythm, telemetry reivewed ABDOMINAL: Soft, nontender, nondistended, normal bowel sounds MUSCULOSKELETAL: Moves all extremities. Strength/ROM intact, No edema, No calf tenderness. NEURO: Alert. Cranial nerves II through XII intact. Good gait. Good coordination SKIN: Warm, dry. Normal Color DS: Data Data Completed and Pending Completed studies during hospitalization: Exam Type: CA echo doppler color flow Complete two-dimensional, color flow and Doppler transthoracic echocardiogram is performed. Staff Referring Physician: Rafael Padgett Gold Buyer: Ollie Velazquez III Attending Provider: Lynn Fernandez MD Summary 1. Complete two-dimensional, color flow and Doppler transthoracic echocardiogram is performed. 2. There is an abnormal cyst-like structure in the liver. Clinical correlation recommended. 3. There is normal biventricular size and systolic function. 4. There is mild concentric left ventricular hypertrophy. 5. The tricuspid valve is normal. There is moderate tricuspid regurgitation. Left Ventricle The left ventricle is normal in size and systolic function. There is mild concentric left ventricular hypertrophy. The left ventricular ejection fraction is visually estimated to be 60-65%. Right Ventricle The right ventricle is normal in size and systolic function. Linear artifact in right ventricle suggestive of catheter(s), pacemaker lead(s), or ICD lead(s). Left Atria The left atrium is moderately dilated. Right Atria Linear artifact in the right atrium suggestive of catheter(s), pacemaker lead(s), or ICD lead(s). The right atrium is dilated. Atrial Septum The atrial septum is normal. Aortic Valve The aortic valve is trileaflet and opens well. There is no aortic regurgitation. Pulmonic Valve The pulmonic valve is not well visualized. Mitral Valve The mitral valve leaflets are sclerotic. There is trace mitral regurgitation. Tricuspid Valve The tricuspid valve is normal. There is moderate tricuspid regurgitation. Pericardium/Pleural Pericardium is normal in appearance with no evidence for significant pericardial effusion. Inferior Vena Cava Normal inferior vena cava with >50% collapse upon inspiration consistent with normal right atrial pressure, 3 mmHg. Aorta The aortic root at the level of the sinus of Valsalva measures 2.7 cm in diameter. Labs on day of discharge: Labs from last 24 hours 04/11/25 03:52 WBC 7.2 RBC 4.05 L Hgb 10.9 L Hct 35.6 L MCV 87.9 MCH 26.9 MCHC 30.6 L RDW 16.2 H Plt Count 198 MPV 10.3 Immature Gran % (Auto) 2.5 H Neut % (Auto) 85.3 H Lymph % (Auto) 7.0 L Glades % (Auto) 4.8 Eos % (Auto) 0.0 Baso % (Auto) 0.4 Lymph # (Auto) 0.51 L Glades # (Auto) 0.4 Eos # (Auto) 0.0 Baso # (Auto) 0.0 Abs Immat Gran (auto) 0.18 H Absolute Neuts (auto) 6.2 Absolute Nucleated RBC 0.020 H Nucleated RBC % 0.3 H Sodium 136 L Potassium 3.9 Chloride 107 Carbon Dioxide 26 Anion Gap 3 L BUN 29 H Creatinine 1.20 H Estim Creat Clear Calc 24 Estimated GFR 42 L Glucose 101 Calcium 8.2 L Magnesium 2.6 H Total Bilirubin 0.6 AST 25 ALT 24 Alkaline Phosphatase 51 Total Protein 6.5 Albumin 3.6 Preliminary micro results at discharge 04/06/25 14:47 Blood Culture - Preliminary Blood 04/06/25 14:47 Blood Culture - Preliminary Blood Imaging Radiologist's impression: ITS Impressions Chest X-Ray 04/06/25 10:27 IMPRESSION: 1. Interstitial pulmonary edema and/or multifocal airspace disease. Chest X-Ray 04/09/25 08:07 Impression: CHF. Findings appear progressed compared to the previous exam Chest X-Ray 04/11/25 08:03 IMPRESSION: 1. No significant change in cardiomegaly and findings consistent with congestive heart failure including pulmonary vascular congestion, mild pulmonary edema in the mid to lower lungs. Differential includes less likely pneumonia. 2. Small bilateral pleural effusions. Discharge Plan Discharge Attending physician on discharge: Daniel Rodgers Consulting providers: Saturnino Garza Discharging Clinician: Daniel Rodgers Anticipated Discharge Date/Time: 04/11/25 16:25 Patient Disposition: Home Activity: as tolerated Diet: heart healthy Discharge Instructions: 2 L oxygen at rest 3 L with activity Patient Instructions: Antibiotic Form Patient Language: Setswana Stand Alone Forms: General Discharge Information Follow-up/Referrals: PHYSICIAN NOT ON STAFF,NONSTAFF [Primary Care Provider] - 1 Week Discharge Medications: New levalbuterol HCl 1.25 mg/3 mL Solution For Nebulization 0.63 mg inhalation Q6HRT PRN (Reason: Wheezing) Qty: 30 0RF guaifenesin [Mucus Relief ER] 600 mg Tablet Extended Release 12hr 600 mg PO Q12HR Qty: 30 0RF diltiazem HCl 120 mg Capsule,Extended Release 24 Hr 120 mg PO QAM Qty: 30 0RF Continued Eliquis 2.5 mg tablet 2.5 mg PO BID benzonatate 100 mg capsule 100 mg PO PRN carboxymethylcellulose sodium [Refresh Tears] 0.5 % drops 1 drp EACH EYE .q6h prn codeine-guaifenesin 10-100 mg/5 mL liquid 10 ml PO Q4-6H PRN (Reason: cough) cyclosporine 0.05 % dropperette 1 drp EACH EYE QHS Lumigan 0.01 % drops 1 drp EACH EYE QHS diclofenac sodium [Arthritis Pain (diclofenac)] 1 % gel 4 g topical PRN Rx Instructions: apply to single knee, ankle, foot; for foot includes sole/toes/top of foot torsemide 20 mg tablet 20 mg PO DAILY simvastatin 10 mg tablet 10 mg PO QPM potassium chloride 10 mEq tablet extended release 20 meq PO DAILY metoprolol tartrate 50 mg tablet 50 mg PO DAILY sertraline 50 mg tablet 50 mg PO DAILY midodrine 10 mg tablet 10 mg PO DAILY metoprolol tartrate 25 mg tablet 100 mg PO HS tiotropium bromide [Spiriva with HandiHaler] 18 mcg capsule, w/inhalation device 1 cap INHALATION QHS Adempas 1 mg tablet 1 mg PO TID Jardiance 10 mg tablet 10 mg PO DAILY Uptravi 800 mcg tablet 800 mcg PO BID acetaminophen [Tylenol Extra Strength] 500 mg tablet 1,000 mg PO Q6H PRN (Reason: pain) albuterol 90 mcg/actuation aerosol 90 mcg inhalation .q4hr PRN (Reason: shortness of breath) calcium carbonate-vitamin D3 [Calcium 500 + D] 500 mg-10 mcg (400 unit) tablet 1 tablet PO DAILY vitamin [id number] factor 110-0.5 mg capsule 1 cap PO DAILY denosumab 60 mg/mL syringe 60 mg subcut [id number] diphenhydramine HCl [Allergy (diphenhydramine)] 25 mg capsule 25 mg PO Q6H PRN (Reason: allergy symptoms) ferrous sulfate [FeroSul] 325 mg (65 mg iron) tablet 325 mg PO .COMPLEX Rx Instructions: 325 mg orally; every monday, Monday and Monday fluticasone propion-salmeterol [Advair Diskus] 250-50 mcg/dose blister with device 1 inh inhalation Q12H Culturelle 10 billion cell capsule 1 cap PO DAILY pantoprazole 40 mg tablet,delayed release (DR/EC) 40 mg PO QAM Discontinued ipratropium-albuterol 0.5 mg-3 mg(2.5 mg base)/3 mL solution for nebulization 3 ml inhalation Q6H Other Ambulatory Orders: Complete Blood Count with Diff (Routine) Timeframe: 1 Week Location: Determined by Patient Ordered By: Daniel Rodgers Comprehensive Metabolic Panel (Routine) Timeframe: 1 Week Location: Determined by Patient Ordered By: Daniel Rodgers Date of admission: 04/07/25 12:42 Primary Care Provider: PHYSICIAN NOT ON STAFF,NONSTAFF Admitting Provider: Lynn Fernandez Attending physician on admission: Lynn Fernandez Condition: Improved
== END 2025-04-11 17:52 | disposition home or self-care (01) | DRG 871 ==
LOC: ANHED 10:33 → ANHIMU 11:21
PROVIDERS: Student in an Organized Health Care Education/Training Program; Admitting Provider Family Medicine; Emergency Provider Emergency Medicine; Visit Provider Internal Medicine
DX: A41.9 Sepsis, unspecified organism (principal); I50.33 Acute on chronic diastolic (congestive) heart failure; J18.9 Pneumonia, unspecified organism; J96.21 Acute and chronic respiratory failure with hypoxia; J44.1 Chronic obstructive pulmonary disease with (acute) exacerbation; J44.0 Chronic obstructive pulmonary disease with (acute) lower respiratory infection; I48.92 Unspecified atrial flutter; I48.0 Paroxysmal atrial fibrillation; I11.0 Hypertensive heart disease with heart failure; E78.5 Hyperlipidemia, unspecified; K21.9 Gastro-esophageal reflux disease without esophagitis; I95.9 Hypotension, unspecified; F41.9 Anxiety disorder, unspecified; Z20.822 Contact with and (suspected) exposure to COVID-19; Z96.659 Presence of unspecified artificial knee joint; Z86.718 Personal history of other venous thrombosis and embolism; Z90.49 Acquired absence of other specified parts of digestive tract; Z79.85 Long-term (current) use of injectable non-insulin antidiabetic drugs; Z79.01 Long term (current) use of anticoagulants; Z79.51 Long term (current) use of inhaled steroids; Z99.81 Dependence on supplemental oxygen; Z95.810 Presence of automatic (implantable) cardiac defibrillator; Z79.891 Long term (current) use of opiate analgesic
CPT/HCPCS: 36415; 36600; 71045; 80048; 80053; 82375; 82805; 83050; 83605; 83735; 83880; 84439; 84443; 84480; 85018; 85025; 87040; 87637; 93005; 93306; 94002; 94618; 94640; 96361; 96366; 96367; 96374; 96375; 97161; 97165; 99285; A9270; G0378; J0456; J0616; J0696; J1160; J1163; J1938; J7050; J7120; J7512